=== PATIENT | female | born 1940 | race African-American/Black ===

== ENCOUNTER 2017-02-13 00:56 | Inpatient (IN) | payer MEDICARE, MEDICAID ==
[~2017-02-13] VITALS: Ht 152.4 cm; Wt 71.2 kg
[~2017-02-13 00:56] MED LIST: ADVAIR; ADVAIR 100-501 EACH INH; ADVAIR PO; ASPIR 8181 MG ORAL; ASPIRIN81 M2 PO; ATORVASTATIN CA10 MG ORAL; ATORVASTATIN CA20 MG ORAL; BENAZEPRIL; BENAZEPRIL HCL40 MG ORAL; CIPRO500 MG PO; CIPROFLOXACIN500 M2 ORAL; COLACE100 MG ORAL; DETROL LA4 MG PO; FLAGYL500 MG PO; LANTUS INSULIN; MACROBID100 MG ORAL; METOPROLOL TAR100 MG ORAL; METRONIDAZOLE500 MG ORAL; NITROSTAT; NORCO 5-325 TA1 EACH ORAL; NORVASC10 MG ORAL; NOVOLOG INSULIN; PLAVIX75 MG ORAL
[2017-02-13 04:00] VITALS: BP 110/50
[2017-02-13] MEDS ORDERED: UNOBMED (04:18)
[2017-02-13] MEDS ORDERED: Nitroglycerin Subl 0.4mg tab (Bottle Of 25) SL PRN (06:15)
[2017-02-13] MEDS: NovoLOG Insulin Flexpen SUBQ SCH ×4 (06:43→21:39)
[2017-02-13 08:00] VITALS: BP 115/63
[2017-02-13] MEDS ORDERED: Aspirin Baby 81mg ORAL SCH (09:00)
[2017-02-13 09:37] LABS: BASOPHILS % (AUTO) 1.5 % (0.0-2.0); EOSINOPHILS % (AUTO) 8.4 % (0.0-3.0); LYMPHOCYTES % (AUTO) 33.9 % (20.0-45.0); MEAN CORPUSCULAR HEMOGLOBIN 26.4 PG (27.0-31.0); MEAN CORPUSCULAR HGB CONC 31.9 G/DL (32.0-36.0); MEAN CORPUSCULAR VOLUME 83 FL (80-99); MEAN PLATELET VOLUME 6.9 FL (6.5-10.1); MONOCYTES % (AUTO) 6.5 % (1.0-10.0); NEUTROPHILS % (AUTO) 49.7 % (45.0-75.0); PLATELET COUNT 289 K/UL (150-450); RED BLOOD COUNT 4.49 M/UL (4.20-5.40); RED CELL DISTRIBUTION WIDTH 13.5 % (11.6-14.8); WHITE BLOOD COUNT 8.3 K/UL (4.8-10.8)
[2017-02-13 09:47] LABS: ALANINE AMINOTRANSFERASE 10 U/L (3-33); ALBUMIN/GLOBULIN RATIO 0.9 (1.0-2.7); ANION GAP 11 (5-15); ASPARTATE AMINO TRANSFERASE 13 U/L (5-40); CALCIUM 9.2 mg/dL (8.6-10.2); CARBON DIOXIDE 25 mEQ/L (20-30); CHLORIDE 104 mEQ/L (98-107); CHOLESTEROL 209 mg/dL (< 200); CHOLESTEROL/HDL RATIO 5.6 (3.3-4.4); HEMOLYSIS 2; LDL CHOLESTEROL (CALC.) 148 mg/dL (60-99); MAGNESIUM 1.7 mg/dL (1.7-2.5); POTASSIUM 4.1 mEQ/L (3.4-4.9); SODIUM 140 mEQ/L (135-145)
[2017-02-13 09:48] LABS: TROPONIN I < 0.30 ng/mL (<=0.30)
--- NOTE | 2017-02-13 10:55 | History & Physical ---
History and Physical History & Physicial Dictated for Int Med-Dr Guzman no. [id number]. RICHARD MONTERO Feb 13, 2017 10:55
[2017-02-13 12:00] VITALS: BP 151/74
--- NOTE | 2017-02-13 13:28 | Consultation ---
History of Present Illness General Date patient seen: Feb 13, 2017 Referring physician: Dr. Quiles Reason for Consultation: chest pain Present Illness HPI 77 year old female with hx of HTN, COPD, was taken by paramedics to [facility] with CC of chest pain. Acute WA was ruled out and she is transferred to [facility] for further work up. Currently she is asymptomatic and awaiting her test results. Allergies: Coded Allergies: AMOXICILLIN (Verified Allergy, Severe, HIVES, 01/01/13) PENICILLINS (Verified Allergy, Severe, HIVES, 01/01/13) STRAWBERRY (Verified Allergy, Intermediate, Hives, 02/13/17) Medication History Scheduled Amlodipine Besylate (Norvasc), 10 MG ORAL DAILY, (Reported) Aspirin* (Aspir 81*), 81 MG ORAL DAILY, (Reported) Atorvastatin Calcium* (Atorvastatin Calcium*), 20 MG ORAL BEDTIME, (Reported) Benazepril Hcl* (Benazepril Hcl*), 40 MG ORAL DAILY, (Reported) Ciprofloxacin Hcl* (Ciprofloxacin Hcl*), 500 MG ORAL Q12H Clopidogrel Bisulfate* (Plavix*), 75 MG ORAL DAILY, (Reported) Docusate Sodium* (Colace*), 100 MG ORAL TWICE A DAY Fluticasone/Salmeterol (Advair 100-50 Diskus), 1 PUFF INH BID, (Reported) Metoprolol Tartrate* (Metoprolol Tartrate*), 100 MG ORAL DAILY, (Reported) Metronidazole* (Flagyl*), 500 MG ORAL TID, (Reported) Nitrofurantoin Monohyd/M-Cryst (Nitrofurantoin Harding-Mcr 100 mg), 100 MG ORAL Q12H Scheduled PRN Hydrocodone Bit/Acetaminophen 5-325* (Inchelium 5-325*), 1 TAB ORAL Q6H PRN for For Pain, (Reported) Hydrocodone Bit/Acetaminophen 5-325* (Inchelium 5-325*), 1 TAB ORAL Q6H PRN for For Pain Miscellaneous Medications Unable to Obtain Medications (Unable To Obtain Meds), (Reported) Patient History Healthcare decision maker Resuscitation status Full Code Advanced Directive on File No Past Medical/Surgical History Past Medical/Surgical History: (1) DDD (degenerative disc disease), thoracic (2) Thoracic spondylosis (3) Hypertension (4) Diabetes Review of Systems All Other Systems: negative except mentioned in HPI Physical Exam General Appearance: WD/WN Lines, tubes and drains: peripheral HEENT: normocephalic, atraumatic Neck: non-tender, normal alignment Respiratory/Chest: chest wall non-tender, normal breath sounds Cardiovascular/Chest: normal peripheral pulses, normal rate Abdomen: normal bowel sounds, non tender Genitourinary/Rectal: normal genital exam Extremities: normal range of motion, non-tender Skin Exam: normal pigmentation Last 24 Hour Vital Signs Date Time Temp Pulse Resp B/P Pulse Ox O2 Delivery O2 Flow Rate FiO2 02/13/17 12:00 99.5 86 20 151/74 100 Nasal Cannula 2.0 02/13/17 08:23 Nasal Cannula 2.0 28 02/13/17 08:23 99 Nasal Cannula 2.0 28 02/13/17 08:00 90 02/13/17 08:00 97.5 86 20 115/63 97 Room Air 02/13/17 06:15 130/79 02/13/17 04:00 74 02/13/17 04:00 97.5 75 18 110/50 99 Room Air Laboratory Tests Test 02/13/17 09:00 White Blood Count 8.3 K/UL (4.8-10.8) Red Blood Count 4.49 M/UL (4.20-5.40) Hemoglobin 11.9 G/DL (12.0-16.0) L Hematocrit 37.2 % (37.0-47.0) Mean Corpuscular Volume 83 FL (80-99) Mean Corpuscular Hemoglobin 26.4 PG (27.0-31.0) L Mean Corpuscular Hemoglobin Concent 31.9 G/DL (32.0-36.0) L Red Cell Distribution Width 13.5 % (11.6-14.8) Platelet Count 289 K/UL (150-450) Mean Platelet Volume 6.9 FL (6.5-10.1) Neutrophils (%) (Auto) 49.7 % (45.0-75.0) Lymphocytes (%) (Auto) 33.9 % (20.0-45.0) Monocytes (%) (Auto) 6.5 % (1.0-10.0) Eosinophils (%) (Auto) 8.4 % (0.0-3.0) H Basophils (%) (Auto) 1.5 % (0.0-2.0) Sodium Level 140 mEQ/L (135-145) Potassium Level 4.1 mEQ/L (3.4-4.9) Chloride Level 104 mEQ/L (98-107) Carbon Dioxide Level 25 mEQ/L (20-30) Anion Gap 11 (5-15) Blood Urea Nitrogen 16 mg/dL (7-23) Creatinine 1.0 mg/dL (0.5-0.9) H Estimat Glomerular Filtration Rate mL/min (>60) Glucose Level 145 mg/dL (74-106) H Calcium Level 9.2 mg/dL (8.6-10.2) Phosphorus Level 3.0 mg/dL (2.5-4.8) Magnesium Level 1.7 mg/dL (1.7-2.5) Total Bilirubin < 0.2 mg/dL (0.0-1.2) Aspartate Amino Transf (AST/SGOT) 13 U/L (5-40) Alanine Aminotransferase (ALT/SGPT) 10 U/L (3-33) Alkaline Phosphatase 65 U/L (35-104) Troponin I < 0.30 ng/mL (<=0.30) Total Protein 7.0 g/dL (6.6-8.7) Albumin 3.4 g/dL (3.5-5.2) L Globulin 3.6 g/dL Albumin/Globulin Ratio 0.9 (1.0-2.7) L Triglycerides Level 121 mg/dL (< 150) Cholesterol Level 209 mg/dL (< 200) H LDL Cholesterol 148 mg/dL (60-99) H HDL Cholesterol 37 mg/dL (> 60) Cholesterol/HDL Ratio 5.6 (3.3-4.4) H Height (Feet): 5 Weight (Pounds): 157 Medications Current Medications Medications (Trade) Dose Ordered Sig/Tasia Route PRN Reason Start Time Stop Time Status Last Admin Dose Admin Acetaminophen (Tylenol) 650 mg Q6H PRN ORAL Mild Pain/Temp > 100.5 02/13/17 07:30 03/15/17 07:29 Aspirin (ASA) 81 mg DAILY ORAL 02/13/17 09:00 03/15/17 08:59 02/13/17 09:06 Atorvastatin Calcium (Lipitor) 40 mg BEDTIME ORAL 02/13/17 21:00 03/15/17 20:59 Dextrose (Dextrose 50%) STAT PRN IV Hypoglycemia 02/13/17 06:15 03/15/17 06:14 Heparin Sodium (Porcine) (Heparin 5000 units/ml) 5,000 units EVERY 8 HOURS SUBQ 02/13/17 14:00 03/15/17 13:59 Insulin Aspart (NovoLOG) BEFORE MEALS AND HS SUBQ 02/13/17 06:30 03/15/17 06:29 02/13/17 11:11 Nitroglycerin (Ntg) 0.4 mg Q5M PRN SL Prn Chest Pain 02/13/17 06:15 03/15/17 06:14 02/13/17 06:15 Nitroglycerin (Ntg) 1 patch EVERY 8 HOURS TDERMAL 02/13/17 14:00 03/15/17 13:59 Pantoprazole (Protonix) 40 mg ACBREAKFAST ORAL 02/13/17 09:00 03/15/17 08:59 02/13/17 09:06 Assessment/Plan Problem List: (1) ACS (acute coronary syndrome) ICD Codes: I20.0 - Unstable angina SNOMED: 363283198 (2) Diabetes ICD Codes: E11.9 - Diabetes SNOMED: 69972942 (3) Hypertension ICD Codes: I10 - Hypertension SNOMED: 78690194 (4) DDD (degenerative disc disease), thoracic ICD Codes: M51.34 - DDD (degenerative disc disease), thoracic SNOMED: 32510564 Assessment/Plan cxr, echo stress testing s monitor bp serial troponing dvt prophylaxis RONY CRUZ Feb 13, 2017 13:28
[2017-02-13] MEDS ORDERED: Norco 5mg/325mg tab ORAL PRN (13:30)
[2017-02-13] MEDS: Heparin 5000 units/ml inj SUBQ SCH ×2 (14:00→21:40)
[2017-02-13] MEDS: Nitroglycerin Patch 0.4mg TDERMAL SCH ×2 (14:02→21:36)
--- NOTE | 2017-02-13 14:59 | Diagnostic Imaging Report ---
Indication: Dyspnea Comparison: 12 x 16 A single view chest radiograph was obtained. Findings: No definite infiltrate or pulmonary vascular congestion identified. The heart is enlarged. The aorta is mildly enlarged consistent with atherosclerotic vascular disease. The bones are osteopenic. Impression: No acute disease
[2017-02-13 16:00] VITALS: BP 135/75
[2017-02-13 16:10] LABS: TROPONIN I < 0.30 ng/mL (<=0.30)
[2017-02-13 20:00] VITALS: BP 141/85
--- NOTE | 2017-02-13 20:00 | History and Physical Report ---
DATE OF ADMISSION: 02/13/2017 CHIEF COMPLAINT: The patient is a 77-year-old female, presents with chief complaint of chest pain. HISTORY OF PRESENT ILLNESS: Began yesterday, 02/12/2017. The patient began to experience chest pain. The patient states she was not doing anything in particular, just sitting around the house. The patient states the chest pain is substernal. Chest pain radiates to the left-sided chest. The chest pain also radiates to the back. Chest pain lasted approximately 15 to 20 minutes. The patient denies nausea, vomiting, or diaphoresis. The patient was transported via EMS to [facility] emergency room. An initial troponin level there was negative. The patient is transferred to [facility] secondary to insurance purposes. The patient is admitted for chest pain to rule out acute coronary syndrome. PAST MEDICAL HISTORY: Significant for 1. Hypertension. 2. History of possible myocardial infarction in the past. PAST SURGICAL HISTORY: The patient denies. CURRENT MEDICATIONS: 1. Amlodipine 10 mg one tablet p.o. daily. 2. Aspirin 81 mg one tablet p.o. daily. 3. Atorvastatin 20 mg one tablet p.o. at bedtime. 4. Benazepril 40 mg one tablet p.o. daily. 5. Plavix 75 mg one tablet p.o. daily. 6. Advair 100/50, one puff p.o. twice daily. 7. Metoprolol 100 mg one tablet p.o. daily. ALLERGIES: Penicillin. SOCIAL HISTORY: The patient is and lives with her son. The patient admits to tobacco use to one-half pack per day. The patient denies alcohol use. REVIEW OF SYSTEMS: Constitutional: The patient denies weight loss or weight gain. The patient denies fevers or chills. HEENT: The patient denies ear or throat pain. Cardiovascular: The patient complains of chest pain as above. The patient denies palpitations. Chest: The patient denies wheeze or shortness of breath. Abdomen: The patient denies nausea, vomiting, diarrhea, or constipation. Genitourinary: The patient denies dysuria or increased frequency of urination. Neuromuscular: The patient denies seizures or generalized weakness. PHYSICAL EXAMINATION: GENERAL: The patient is a well-developed and well-nourished slightly obese female, in no apparent distress. VITAL SIGNS: Temperature 97.5 degrees, respirations 18, pulse 75, and blood pressure 110/50. HEENT: Eyes, pupils are equal and responsive to light and accommodation. Extraocular movements are intact. NECK: Supple without lymphadenopathy. CHEST: Lungs are clear to auscultation bilaterally without wheezes or rales. CARDIOVASCULAR: Regular rhythm and rate. S1 and S2 normal without murmurs, rubs, or gallops. ABDOMEN: Soft, nontender, and nondistended. Positive bowel sounds. No evidence of hepatosplenomegaly. Currently, no rebound or guarding. EXTREMITIES: Negative for clubbing, cyanosis, or edema. RECTAL/GENITAL: Refused. NEUROLOGIC: Cranial nerves II through XII are grossly intact without focal deficits. Motor strength is 5/5 bilaterally. Deep tendon reflexes are 2+ plantar. LABORATORY AND DIAGNOSTIC DATA: WBC 9.3, hemoglobin 11.7, hematocrit 35.5, and platelets 266,000. Sodium 136, potassium 4.4, chloride 107, CO2 25, BUN 13, and creatinine 1.03. Troponin less than 0.02. BNP normal at 63. Glucose elevated at 261. Chest x-ray is within normal limits. EKG demonstrated normal sinus rhythm. There are no acute ST changes or Q-waves noted. Ventricular rate was 92 beats per minute. This is interpreted as normal EKG. ASSESSMENT: This is a 77-year-old female 1. Chest pain. 2. Hypertension. 3. Hypercholesterolemia. 4. Diabetes type 2. TREATMENT: 1. Chest pain. A Cardiology consultation is pending with Dr. Edward Benavidez. We will follow recommendation of Cardiology. A Cardiolite stress test is pending. 2. Hypertension. Continue amlodipine and benazepril as above. Continue metoprolol as above. 3. Hypercholesterolemia. Continue atorvastatin as above. 4. Diabetes type 2. The patient has been started on a NovoLog sliding scale with Accu-Cheks before meals and at bedtime. Junior Quiles M.D. DR: WILFREDO JOB#: [id number] CC:
--- NOTE | 2017-02-13 20:06 | Cardiology Progress Note ---
Assessment/Plan Assessment/Plan The patient is seen and examined, full consult note is dictated. Objective Last 24 Hour Vital Signs Date Time Temp Pulse Resp B/P Pulse Ox O2 Delivery O2 Flow Rate FiO2 02/13/17 16:00 97.7 79 20 135/75 100 Nasal Cannula 2.0 02/13/17 14:02 151/74 02/13/17 12:00 77 02/13/17 12:00 99.5 86 20 151/74 100 Nasal Cannula 2.0 02/13/17 08:23 Nasal Cannula 2.0 28 02/13/17 08:23 99 Nasal Cannula 2.0 28 02/13/17 08:00 90 02/13/17 08:00 97.5 86 20 115/63 97 Room Air 02/13/17 06:15 130/79 02/13/17 04:00 74 02/13/17 04:00 97.5 75 18 110/50 99 Room Air Intake and Output 02/12/17 02/13/17 19:00 07:00 # Bowel Movements 2 Laboratory Tests Test 02/13/17 09:00 02/13/17 15:30 White Blood Count 8.3 K/UL (4.8-10.8) Red Blood Count 4.49 M/UL (4.20-5.40) Hemoglobin 11.9 G/DL (12.0-16.0) L Hematocrit 37.2 % (37.0-47.0) Mean Corpuscular Volume 83 FL (80-99) Mean Corpuscular Hemoglobin 26.4 PG (27.0-31.0) L Mean Corpuscular Hemoglobin Concent 31.9 G/DL (32.0-36.0) L Red Cell Distribution Width 13.5 % (11.6-14.8) Platelet Count 289 K/UL (150-450) Mean Platelet Volume 6.9 FL (6.5-10.1) Neutrophils (%) (Auto) 49.7 % (45.0-75.0) Lymphocytes (%) (Auto) 33.9 % (20.0-45.0) Monocytes (%) (Auto) 6.5 % (1.0-10.0) Eosinophils (%) (Auto) 8.4 % (0.0-3.0) H Basophils (%) (Auto) 1.5 % (0.0-2.0) Sodium Level 140 mEQ/L (135-145) Potassium Level 4.1 mEQ/L (3.4-4.9) Chloride Level 104 mEQ/L (98-107) Carbon Dioxide Level 25 mEQ/L (20-30) Anion Gap 11 (5-15) Blood Urea Nitrogen 16 mg/dL (7-23) Creatinine 1.0 mg/dL (0.5-0.9) H Estimat Glomerular Filtration Rate mL/min (>60) Glucose Level 145 mg/dL (74-106) H Calcium Level 9.2 mg/dL (8.6-10.2) Phosphorus Level 3.0 mg/dL (2.5-4.8) Magnesium Level 1.7 mg/dL (1.7-2.5) Total Bilirubin < 0.2 mg/dL (0.0-1.2) Aspartate Amino Transf (AST/SGOT) 13 U/L (5-40) Alanine Aminotransferase (ALT/SGPT) 10 U/L (3-33) Alkaline Phosphatase 65 U/L (35-104) Troponin I < 0.30 ng/mL (<=0.30) < 0.30 ng/mL (<=0.30) Total Protein 7.0 g/dL (6.6-8.7) Albumin 3.4 g/dL (3.5-5.2) L Globulin 3.6 g/dL Albumin/Globulin Ratio 0.9 (1.0-2.7) L Triglycerides Level 121 mg/dL (< 150) Cholesterol Level 209 mg/dL (< 200) H LDL Cholesterol 148 mg/dL (60-99) H HDL Cholesterol 37 mg/dL (> 60) Cholesterol/HDL Ratio 5.6 (3.3-4.4) H MARTA HARVEY Feb 13, 2017 20:06
[2017-02-13] MEDS: Atorvastatin 80mg tab ORAL SCH (21:36)
[2017-02-14] VITALS: BP 124/73
--- NOTE | 2017-02-14 03:30 | Consultation ---
DATE OF CONSULTATION: 02/13/2017 CARDIOLOGY CONSULTATION CONSULTING PHYSICIAN: Edward Neri M.D. REFERRING PHYSICIAN: Junior Quiles M.D. REASON FOR CONSULTATION: Management of chest pain. History Of Present Illness: The patient is a very pleasant 77-year-old female, known to me, who is transferred from [facility] for consultation and management of chest pain. Apparently, the patient has complaints of chest pain during the night of 02/12/2017 at around 9:30, described as pressure-like pain in the mid chest area, intermittent, nonradiating, and not associated with shortness of breath. There was no associated nausea and vomiting. The chest pain lasted about an hour, intensity of 5/10. On arrival to [facility], initial blood pressure was 145/71 mmHg and heart rate of 74 beats per minute. The patient underwent initial evaluation and management of acute coronary syndrome. Troponin I were negative. ECG did not show any evidence of ST segment changes. The patient was transferred to this facility for further evaluation and management. PAST MEDICAL HISTORY: History of coronary artery disease, status post percutaneous coronary intervention at [facility], history of hypertension, history of diabetes mellitus, and history of myocardial infarction. PAST SURGICAL HISTORY: Angioplasty and stent placement. MEDICATIONS: List of medications were reviewed and reconciled. ALLERGIES: Allergic to penicillin. SOCIAL HISTORY: No history of tobacco, alcohol, or illicit drug use. FAMILY HISTORY: No premature coronary artery disease in first-degree relatives. REVIEW OF SYSTEMS: HEENT: Denies any headache, diplopia, or blurred vision. Constitutional: Denies any fever, chills, night sweats, or weight loss. Cardiovascular: Has chest pain, new onset and as mentioned above did not have any exertional chest pain, did not have any dyspnea on exertion, did not have any PND, orthopnea, leg swelling, syncope, or palpitations. Pulmonary: Denies any cough, hemoptysis, or wheezing. Gastrointestinal: Denies any nausea, vomiting, diarrhea, constipation, abdominal pain, or GI bleed. Genitourinary: Denies any hematuria, dysuria, or incontinence. Neurology: Denies any motor dysfunction, sensory deficit, or altered speech. PHYSICAL EXAMINATION: VITAL SIGNS: Blood pressure was 145/71, pulse of 74, respirations 20, temperature was 97.5 degrees Fahrenheit, and O2 saturation 97%. GENERAL: The patient is a very pleasant 77-year-old female, in no apparent respiratory distress. Alert and oriented x4. HEENT: Atraumatic and normocephalic. Anicteric. Pupils are equal, round, and reactive to light and accommodation. Extraocular muscles are intact. NECK: JVP less than 5 cm. No carotid bruit. Carotid upstroke is 2+ bilaterally. CARDIOVASCULAR: Normal S1 and S2. Regular rate and rhythm. No murmurs, gallops, or rubs. PMI is at fourth intercostal space at the midclavicular line. LUNGS: Clear to auscultation bilaterally. ABDOMEN: Soft, nontender, and nondistended. No hepatosplenomegaly. Positive bowel sounds. EXTREMITIES: No evidence of edema, clubbing, or cyanosis. LABORATORY FINDINGS: WBC was 9.1, hemoglobin 11.7, hematocrit 35.5, and platelet count was 266,000. Sodium is 136, potassium is 4.4, chloride 107, bicarbonate 25, BUN 13, creatinine 1.03, and glucose is 261. Troponin I was less than 0.02 and BNP was 63. The chest x-ray shows no acute cardiopulmonary disease. A 12-lead electrocardiogram shows sinus rhythm at a rate of [address] and T-wave changes. ASSESSMENT AND PLAN: The patient is an unfortunate 77-year-old female with history of coronary artery disease status post percutaneous coronary intervention at [facility], who presents to the hospital with unstable angina. Acute myocardial infarction is ruled out. A 12-lead electrocardiogram does not show any evidence of ischemia. Beta-natriuretic peptide is also negative. The patient is scheduled for nuclear stress test to rule out obstructive coronary artery disease evaluation of the patient's . Further therapeutic and diagnostic decision will be based on the results of the above test. In the meantime, a 2D echocardiography will also be done to assess the left ventricular systolic function and also hemodynamics. I will continue with aspirin and clopidogrel in this patient. Atorvastatin is going to be increased from 40 mg to 80 mg at bedtime in view of uncontrolled LDL. Of note, the target LDL for this patient is less than 70 mg/dL. I would like to thank Dr. Quiles for allowing me to participate in the care of this patient. Edward Neri M.D. DR: LAUREL JOB#: [id number] CC:
[2017-02-14 04:00] VITALS: BP 133/55
[2017-02-14] MEDS: Nitroglycerin Patch 0.4mg TDERMAL SCH ×3 (06:10→21:41)
[2017-02-14] MEDS: Heparin 5000 units/ml inj SUBQ SCH ×3 (06:13→21:42)
[2017-02-14] MEDS: NovoLOG Insulin Flexpen SUBQ SCH ×4 (06:30→21:43)
--- NOTE | 2017-02-14 07:25 | Cardiology Report ---
APPROVED REPORT EKG Measurement Heart [id number] Normal sinus rhythm Nonspecific T wave abnormality Abnormal ECG
--- NOTE | 2017-02-14 07:45 | Cardiology Report ---
APPROVED REPORT EXAM: Two-dimensional and M-mode echocardiogram with Doppler and color Doppler. INDICATION Chest Pain M-Mode DIMENSIONS IVSd0.8 (0.7-1.1cm)Left Atrium (MM)4.0 (1.6-4.0cm) LVDd3.3 (3.5-5.6cm)Aortic Root2.9 (2.0-3.7cm) PWd1.3 (0.7-1.1cm)Aortic Cusp Exc.1.7 (1.5-2.0cm) LVDs2.0 (2.5-4.0cm) PWs1.7 cm Normal left ventricular chamber size, systolic function and wall motion. Left ventricular ejection fraction estimated to be 65 %. Mild left ventricular hypertrophy by 2-D. Anterior Echo-free space, may be due to pericardial fat or effusion. All other cardiac chamber sizes are within normal limits. Focal aortic valve sclerosis with adequate cusp excursion. Thickened mitral valve leaflets with normal excursion. Mitral annulus and aortic root calcification. Pulmonic valve not well visualized. Normal tricuspid valve structure. IVC at normal size with physiologic collapse. A color flow and spectral Doppler study was performed and revealed: Trace mitral regurgitation. Mitral diastolic velocities suggest reduced left ventricular relaxation c/w mild LV diastolic dysfunction (Grade I ). Trace tricuspid regurgitation. Tricuspid systolic velocities suggests peak right ventricular systolic pressure of 15 mmHg.
[2017-02-14 07:50] VITALS: BP 161/78
[2017-02-14 08:09] LABS: BASOPHILS % (AUTO) 0.7 % (0.0-2.0); EOSINOPHILS % (AUTO) 8.7 % (0.0-3.0); LYMPHOCYTES % (AUTO) 36.3 % (20.0-45.0); MEAN CORPUSCULAR HEMOGLOBIN 26.5 PG (27.0-31.0); MEAN CORPUSCULAR HGB CONC 32.2 G/DL (32.0-36.0); MEAN CORPUSCULAR VOLUME 82 FL (80-99); MEAN PLATELET VOLUME 6.7 FL (6.5-10.1); MONOCYTES % (AUTO) 5.3 % (1.0-10.0); PLATELET COUNT 275 K/UL (150-450); RED BLOOD COUNT 4.31 M/UL (4.20-5.40); RED CELL DISTRIBUTION WIDTH 13.3 % (11.6-14.8); WHITE BLOOD COUNT 10.1 K/UL (4.8-10.8)
[2017-02-14] MEDS: Aspirin EC 81mg tab ORAL SCH (08:26)
[2017-02-14 08:27] LABS: ANION GAP 12 (5-15); CALCIUM 9.1 mg/dL (8.6-10.2); CARBON DIOXIDE 25 mEQ/L (20-30); CHLORIDE 102 mEQ/L (98-107); HEMOLYSIS 0; POTASSIUM 4.1 mEQ/L (3.4-4.9); SODIUM 139 mEQ/L (135-145)
[2017-02-14 09:41] LABS: TROPONIN I < 0.30 ng/mL (<=0.30)
[2017-02-14] MEDS ORDERED: Adenosine Inj IVP ONE (12:00)
[2017-02-14 12:09] VITALS: BP 154/87
--- NOTE | 2017-02-14 15:58 | Internal Med Progress Note ---
Subjective Date of Service: Feb 14, 2017 Physician Name Junior Montero Attending Physician Candelario Guzman MD Current Medications Medications (Trade) Dose Ordered Sig/Tasia Route PRN Reason Start Time Stop Time Status Last Admin Dose Admin Acetaminophen (Tylenol) 650 mg Q6H PRN ORAL Mild Pain/Temp > 100.5 02/13/17 07:30 03/15/17 07:29 Acetaminophen/ Hydrocodone Bitart (Jordan 5/325) 1 tab Q6H PRN ORAL For Pain 02/13/17 13:30 02/20/17 13:29 02/14/17 03:24 Amlodipine Besylate (Norvasc) 10 mg DAILY ORAL 02/14/17 09:00 03/16/17 08:59 02/14/17 08:25 Aspirin (Ecotrin) 81 mg DAILY ORAL 02/14/17 09:00 03/16/17 08:59 02/14/17 08:26 Atorvastatin Calcium (Lipitor) 80 mg BEDTIME ORAL 02/13/17 21:00 03/15/17 20:59 02/13/17 21:36 Benazepril HCl (Lotensin) 40 mg DAILY ORAL 02/14/17 09:00 03/16/17 08:59 02/14/17 08:26 Clopidogrel Bisulfate (Plavix) 75 mg DAILY ORAL 02/14/17 09:00 03/16/17 08:59 02/14/17 08:25 Dextrose (Dextrose 50%) STAT PRN IV Hypoglycemia 02/13/17 06:15 03/15/17 06:14 Heparin Sodium (Porcine) (Heparin 5000 units/ml) 5,000 units EVERY 8 HOURS SUBQ 02/13/17 14:00 03/15/17 13:59 02/14/17 06:13 Insulin Aspart (NovoLOG) BEFORE MEALS AND HS SUBQ 02/13/17 06:30 03/15/17 06:29 02/13/17 21:39 Metoprolol Tartrate (Lopressor) 100 mg DAILY ORAL 02/14/17 09:00 03/16/17 08:59 Nitroglycerin (Ntg) 0.4 mg Q5M PRN SL Prn Chest Pain 02/13/17 06:15 03/15/17 06:14 02/13/17 06:15 Nitroglycerin (Ntg) 1 patch EVERY 8 HOURS TDERMAL 02/13/17 14:00 03/15/17 13:59 02/14/17 13:51 Pantoprazole (Protonix) 40 mg ACBREAKFAST ORAL 02/13/17 09:00 03/15/17 08:59 02/14/17 06:09 Allergies: Coded Allergies: AMOXICILLIN (Verified Allergy, Severe, HIVES, 01/01/13) PENICILLINS (Verified Allergy, Severe, HIVES, 01/01/13) STRAWBERRY (Verified Allergy, Intermediate, Hives, 02/13/17) ROS Limited/Unobtainable: No Constitutional: Reports: no symptoms HEENT: Reports: no symptoms Cardiovascular: Reports: chest pain Respiratory: Reports: no symptoms Gastrointestinal/Abdominal: Reports: no symptoms Genitourinary: Reports: no symptoms Neurologic/Psychiatric: Reports: no symptoms Subjective 77 YO F admitted with chest pain. Await cardiac stress test. Cover for Int Med -Dr Guzman. Objective Last Vital Signs Date Time Temp Pulse Resp B/P Pulse Ox O2 Delivery O2 Flow Rate FiO2 02/14/17 13:51 154/87 02/14/17 12:09 97.0 70 20 99 Nasal Cannula 2.0 02/14/17 07:46 28 Laboratory Tests Test 02/14/17 07:10 White Blood Count 10.1 K/UL (4.8-10.8) Red Blood Count 4.31 M/UL (4.20-5.40) Hemoglobin 11.4 G/DL (12.0-16.0) L Hematocrit 35.5 % (37.0-47.0) L Mean Corpuscular Volume 82 FL (80-99) Mean Corpuscular Hemoglobin 26.5 PG (27.0-31.0) L Mean Corpuscular Hemoglobin Concent 32.2 G/DL (32.0-36.0) Red Cell Distribution Width 13.3 % (11.6-14.8) Platelet Count 275 K/UL (150-450) Mean Platelet Volume 6.7 FL (6.5-10.1) Neutrophils (%) (Auto) 49.0 % (45.0-75.0) Lymphocytes (%) (Auto) 36.3 % (20.0-45.0) Monocytes (%) (Auto) 5.3 % (1.0-10.0) Eosinophils (%) (Auto) 8.7 % (0.0-3.0) H Basophils (%) (Auto) 0.7 % (0.0-2.0) Sodium Level 139 mEQ/L (135-145) Potassium Level 4.1 mEQ/L (3.4-4.9) Chloride Level 102 mEQ/L (98-107) Carbon Dioxide Level 25 mEQ/L (20-30) Anion Gap 12 (5-15) Blood Urea Nitrogen 17 mg/dL (7-23) Creatinine 1.0 mg/dL (0.5-0.9) H Estimat Glomerular Filtration Rate mL/min (>60) Glucose Level 112 mg/dL (74-106) H Calcium Level 9.1 mg/dL (8.6-10.2) Troponin I < 0.30 ng/mL (<=0.30) Pro-B-Type Natriuretic Peptide 110 pg/mL (0-450) Intake and Output 02/13/17 02/14/17 19:00 07:00 Intake Total 360 ml Balance 360 ml Intake Oral 360 ml # Voids 1 1 # Bowel Movements 1 Objective General: alert, cooperative, no distress, appears stated age Head: normocephalic, without obvious abnormality, atraumatic Eyes: conjunctivae/corneas clear. PERRL, EOM's intact Throat: lips, mucosa, and tongue normal. MMM Neck: supple, symmetrical, trachea midline, and no JVD Lungs: clear to auscultation bilaterally Heart: regular rate and rhythm, S1, S2 normal, no murmur, click, rub or gallop Abdomen: soft, non-tender, non-distended, bowel sounds normal; no masses or organomegaly Extremities: extremities normal, atraumatic, no cyanosis or edema Pulses: 2+ and symmetric Skin: skin color, texture, turgor normal; no rashes or lesions Neurologic: grossly normal, no focal deficits Assessment/Plan Problem List: (1) HTN (hypertension) Assessment & Plan: Cont amlodipine, benazepril and metoprolol (2) Hypercholesteremia (3) Chest pain Assessment & Plan: See cardiology note. Await cardiac stress test. (4) Diabetes Assessment & Plan: Cont novolog sliding scale. (5) Hypercholesterolemia Assessment & Plan: Cont Lipitor Status: progressing JUNIOR MONTERO Feb 14, 2017 15:57
[2017-02-14 16:00] VITALS: BP 129/61
--- NOTE | 2017-02-14 18:28 | Pulmonology Progress Note ---
Assessment/Plan Problems: (1) ACS (acute coronary syndrome) (2) Diabetes (3) Hypertension (4) DDD (degenerative disc disease), thoracic Assessment/Plan f/u stress test results echo acute UT ruled out f/u cardio recommendations Subjective ROS Limited/Unobtainable: No Allergies: Coded Allergies: AMOXICILLIN (Verified Allergy, Severe, HIVES, 01/01/13) PENICILLINS (Verified Allergy, Severe, HIVES, 01/01/13) STRAWBERRY (Verified Allergy, Intermediate, Hives, 02/13/17) Objective Last 24 Hour Vital Signs Date Time Temp Pulse Resp B/P Pulse Ox O2 Delivery O2 Flow Rate FiO2 02/14/17 16:00 98.1 78 18 129/61 96 Nasal Cannula 2.0 02/14/17 13:51 154/87 02/14/17 12:09 97.0 70 20 154/87 99 Nasal Cannula 2.0 02/14/17 12:00 78 02/14/17 09:00 76 161/78 02/14/17 08:26 161/78 02/14/17 08:25 76 161/78 02/14/17 08:00 76 02/14/17 07:50 97.3 76 18 161/78 100 Room Air 02/14/17 07:46 Nasal Cannula 2.0 28 02/14/17 07:45 97 Nasal Cannula 2.0 28 02/14/17 06:10 117/67 02/14/17 04:00 98.1 88 20 133/55 97 Nasal Cannula 2.0 28 02/14/17 04:00 90 02/14/17 00:00 83 02/14/17 00:00 97.7 86 20 124/73 97 Nasal Cannula 2.0 28 02/13/17 21:36 141/85 02/13/17 20:00 79 02/13/17 20:00 98.1 78 20 141/85 98 Room Air 02/13/17 19:30 97 Nasal Cannula 2.0 28 02/13/17 19:30 Nasal Cannula 2.0 28 Intake and Output 02/13/17 02/14/17 19:00 07:00 Intake Total 360 ml Balance 360 ml Intake Oral 360 ml # Voids 1 1 # Bowel Movements 1 Objective General Appearance: WD/WN HEENT: normocephalic, atraumatic Respiratory/Chest: chest wall non-tender, lungs clear Cardiovascular: normal peripheral pulses, normal rate Abdomen: normal bowel sounds, soft, non tender Genitourinary: normal external genitalia Extremities: no cyanosis Skin: no rash Neurologic/Psychiatric: community support associate II-XII grossly normal Lymphatic: no neck adenopathy Musculoskeletal: normal muscle bulk General Appearance: WD/WN Laboratory Tests 02/14/17 07:10: White Blood Count 10.1, Red Blood Count 4.31, Hemoglobin 11.4L, Hematocrit 35.5L , Mean Corpuscular Volume 82, Mean Corpuscular Hemoglobin 26.5L, Mean Corpuscular Hemoglobin Concent 32.2, Red Cell Distribution Width 13.3, Platelet Count 275, Mean Platelet Volume 6.7, Neutrophils (%) (Auto) 49.0, Lymphocytes (% ) (Auto) 36.3, Monocytes (%) (Auto) 5.3, Eosinophils (%) (Auto) 8.7H, Basophils (%) (Auto) 0.7, Sodium Level 139, Potassium Level 4.1, Chloride Level 102, Carbon Dioxide Level 25, Anion Gap 12, Blood Urea Nitrogen 17, Creatinine 1.0H, Estimat Glomerular Filtration Rate , Glucose Level 112H, Calcium Level 9.1, Troponin I < 0.30, Pro-B-Type Natriuretic Peptide 110 Current Medications Medications (Trade) Dose Ordered Sig/Tasia Route PRN Reason Start Time Stop Time Status Last Admin Dose Admin Acetaminophen (Tylenol) 650 mg Q6H PRN ORAL Mild Pain/Temp > 100.5 02/13/17 07:30 03/15/17 07:29 Acetaminophen/ Hydrocodone Bitart ([place] 5/325) 1 tab Q6H PRN ORAL For Pain 02/13/17 13:30 02/20/17 13:29 02/14/17 03:24 Amlodipine Besylate (Norvasc) 10 mg DAILY ORAL 02/14/17 09:00 03/16/17 08:59 02/14/17 08:25 Aspirin (Ecotrin) 81 mg DAILY ORAL 02/14/17 09:00 03/16/17 08:59 02/14/17 08:26 Atorvastatin Calcium (Lipitor) 80 mg BEDTIME ORAL 02/13/17 21:00 03/15/17 20:59 02/13/17 21:36 Benazepril HCl (Lotensin) 40 mg DAILY ORAL 02/14/17 09:00 03/16/17 08:59 02/14/17 08:26 Clopidogrel Bisulfate (Plavix) 75 mg DAILY ORAL 02/14/17 09:00 03/16/17 08:59 02/14/17 08:25 Dextrose (Dextrose 50%) STAT PRN IV Hypoglycemia 02/13/17 06:15 03/15/17 06:14 Heparin Sodium (Porcine) (Heparin 5000 units/ml) 5,000 units EVERY 8 HOURS SUBQ 02/13/17 14:00 03/15/17 13:59 02/14/17 06:13 Insulin Aspart (NovoLOG) BEFORE MEALS AND HS SUBQ 02/13/17 06:30 03/15/17 06:29 02/14/17 16:30 Metoprolol Tartrate (Lopressor) 100 mg DAILY ORAL 02/14/17 09:00 03/16/17 08:59 Nitroglycerin (Ntg) 0.4 mg Q5M PRN SL Prn Chest Pain 02/13/17 06:15 03/15/17 06:14 02/13/17 06:15 Nitroglycerin (Ntg) 1 patch EVERY 8 HOURS TDERMAL 02/13/17 14:00 03/15/17 13:59 02/14/17 13:51 Pantoprazole (Protonix) 40 mg ACBREAKFAST ORAL 02/13/17 09:00 03/15/17 08:59 02/14/17 06:09 RONY CRUZ Feb 14, 2017 18:28
[2017-02-14 20:00] VITALS: BP 119/66
[2017-02-14] MEDS: Atorvastatin 80mg tab ORAL SCH (21:40)
--- NOTE | 2017-02-14 23:18 | Cardiology Progress Note ---
Assessment/Plan Assessment/Plan The patient is seen and examined, full consult note is dictated. Subjective Subjective Sinus rhythm at 78. Objective Last 24 Hour Vital Signs Date Time Temp Pulse Resp B/P Pulse Ox O2 Delivery O2 Flow Rate FiO2 02/14/17 21:41 119/66 02/14/17 20:00 Room Air 02/14/17 20:00 95 Room Air 02/14/17 20:00 76 02/14/17 20:00 97.7 81 20 119/66 97 Room Air 02/14/17 16:00 98.1 78 18 129/61 96 Nasal Cannula 2.0 02/14/17 13:51 154/87 02/14/17 12:09 97.0 70 20 154/87 99 Nasal Cannula 2.0 02/14/17 12:00 78 02/14/17 09:00 76 161/78 02/14/17 08:26 161/78 02/14/17 08:25 76 161/78 02/14/17 08:00 76 02/14/17 07:50 97.3 76 18 161/78 100 Room Air 02/14/17 07:46 Nasal Cannula 2.0 28 02/14/17 07:45 97 Nasal Cannula 2.0 28 02/14/17 06:10 117/67 02/14/17 04:00 98.1 88 20 133/55 97 Nasal Cannula 2.0 28 02/14/17 04:00 90 02/14/17 00:00 83 02/14/17 00:00 97.7 86 20 124/73 97 Nasal Cannula 2.0 28 Intake and Output 02/13/17 02/14/17 19:00 07:00 Intake Total 360 ml Balance 360 ml Intake Oral 360 ml # Voids 1 1 # Bowel Movements 1 Laboratory Tests Test 02/14/17 07:10 White Blood Count 10.1 K/UL (4.8-10.8) Red Blood Count 4.31 M/UL (4.20-5.40) Hemoglobin 11.4 G/DL (12.0-16.0) L Hematocrit 35.5 % (37.0-47.0) L Mean Corpuscular Volume 82 FL (80-99) Mean Corpuscular Hemoglobin 26.5 PG (27.0-31.0) L Mean Corpuscular Hemoglobin Concent 32.2 G/DL (32.0-36.0) Red Cell Distribution Width 13.3 % (11.6-14.8) Platelet Count 275 K/UL (150-450) Mean Platelet Volume 6.7 FL (6.5-10.1) Neutrophils (%) (Auto) 49.0 % (45.0-75.0) Lymphocytes (%) (Auto) 36.3 % (20.0-45.0) Monocytes (%) (Auto) 5.3 % (1.0-10.0) Eosinophils (%) (Auto) 8.7 % (0.0-3.0) H Basophils (%) (Auto) 0.7 % (0.0-2.0) Sodium Level 139 mEQ/L (135-145) Potassium Level 4.1 mEQ/L (3.4-4.9) Chloride Level 102 mEQ/L (98-107) Carbon Dioxide Level 25 mEQ/L (20-30) Anion Gap 12 (5-15) Blood Urea Nitrogen 17 mg/dL (7-23) Creatinine 1.0 mg/dL (0.5-0.9) H Estimat Glomerular Filtration Rate mL/min (>60) Glucose Level 112 mg/dL (74-106) H Calcium Level 9.1 mg/dL (8.6-10.2) Troponin I < 0.30 ng/mL (<=0.30) Pro-B-Type Natriuretic Peptide 110 pg/mL (0-450) Objective 20, temperature was 97.5 degrees Fahrenheit, and O2 saturation 97%. GENERAL: The patient is a very pleasant 77-year-old female, in no apparent respiratory distress. Alert and oriented x4. HEENT: Atraumatic and normocephalic. Anicteric. Pupils are equal, round, and reactive to light and accommodation. Extraocular muscles are intact. NECK: JVP less than 5 cm. No carotid bruit. Carotid upstroke is 2+ bilaterally. MARTA HARVEY Feb 14, 2017 23:18
[2017-02-15] VITALS: BP 150/89
[2017-02-15 04:00] VITALS: BP 120/73
[2017-02-15] MEDS: Nitroglycerin Patch 0.4mg TDERMAL SCH ×3 (05:58→21:25)
[2017-02-15] MEDS: Heparin 5000 units/ml inj SUBQ SCH ×3 (05:59→21:27)
[2017-02-15] MEDS: NovoLOG Insulin Flexpen SUBQ SCH ×4 (06:00→21:30)
[2017-02-15 08:00] VITALS: BP 167/79
[2017-02-15 08:04] LABS: BASOPHILS % (AUTO) 1.2 % (0.0-2.0); EOSINOPHILS % (AUTO) 8.3 % (0.0-3.0); LYMPHOCYTES % (AUTO) 34.8 % (20.0-45.0); MEAN CORPUSCULAR HEMOGLOBIN 26.3 PG (27.0-31.0); MEAN CORPUSCULAR VOLUME 82 FL (80-99); MONOCYTES % (AUTO) 4.8 % (1.0-10.0); NEUTROPHILS % (AUTO) 50.9 % (45.0-75.0); PLATELET COUNT 305 K/UL (150-450); RED BLOOD COUNT 4.85 M/UL (4.20-5.40); RED CELL DISTRIBUTION WIDTH 13.3 % (11.6-14.8); WHITE BLOOD COUNT 11.3 K/UL (4.8-10.8)
[2017-02-15 08:17] LABS: ANION GAP 9 (5-15); CALCIUM 9.7 mg/dL (8.6-10.2); CARBON DIOXIDE 27 mEQ/L (20-30); CHLORIDE 99 mEQ/L (98-107); HEMOLYSIS 1; POTASSIUM 3.9 mEQ/L (3.4-4.9); SODIUM 135 mEQ/L (135-145)
[2017-02-15] MEDS: Aspirin EC 81mg tab ORAL SCH (08:56)
--- NOTE | 2017-02-15 11:43 | Internal Med Progress Note ---
Subjective Date of Service: Feb 15, 2017 Physician Name Richard Montero Attending Physician Candelario Guzman MD Current Medications Medications (Trade) Dose Ordered Sig/Tasia Route PRN Reason Start Time Stop Time Status Last Admin Dose Admin Acetaminophen (Tylenol) 650 mg Q6H PRN ORAL Mild Pain/Temp > 100.5 02/13/17 07:30 03/15/17 07:29 Acetaminophen/ Hydrocodone Bitart ([place] 5/325) 1 tab Q6H PRN ORAL For Pain 02/13/17 13:30 02/20/17 13:29 02/14/17 03:24 Amlodipine Besylate (Norvasc) 10 mg DAILY ORAL 02/14/17 09:00 03/16/17 08:59 02/15/17 08:56 Aspirin (Ecotrin) 81 mg DAILY ORAL 02/14/17 09:00 03/16/17 08:59 02/15/17 08:56 Atorvastatin Calcium (Lipitor) 80 mg BEDTIME ORAL 02/13/17 21:00 03/15/17 20:59 02/14/17 21:40 Benazepril HCl (Lotensin) 40 mg DAILY ORAL 02/14/17 09:00 03/16/17 08:59 02/15/17 08:57 Clopidogrel Bisulfate (Plavix) 75 mg DAILY ORAL 02/14/17 09:00 03/16/17 08:59 02/15/17 08:56 Dextrose (Dextrose 50%) STAT PRN IV Hypoglycemia 02/13/17 06:15 03/15/17 06:14 Heparin Sodium (Porcine) (Heparin 5000 units/ml) 5,000 units EVERY 8 HOURS SUBQ 02/13/17 14:00 03/15/17 13:59 02/15/17 05:59 Insulin Aspart (NovoLOG) BEFORE MEALS AND HS SUBQ 02/13/17 06:30 03/15/17 06:29 02/15/17 11:23 Metoprolol Tartrate (Lopressor) 100 mg DAILY ORAL 02/14/17 09:00 03/16/17 08:59 02/15/17 08:57 Nitroglycerin (Ntg) 0.4 mg Q5M PRN SL Prn Chest Pain 02/13/17 06:15 03/15/17 06:14 02/13/17 06:15 Nitroglycerin (Ntg) 1 patch EVERY 8 HOURS TDERMAL 02/13/17 14:00 03/15/17 13:59 02/15/17 05:58 Pantoprazole (Protonix) 40 mg ACBREAKFAST ORAL 02/13/17 09:00 03/15/17 08:59 02/15/17 05:57 Allergies: Coded Allergies: AMOXICILLIN (Verified Allergy, Severe, HIVES, 01/01/13) PENICILLINS (Verified Allergy, Severe, HIVES, 01/01/13) STRAWBERRY (Verified Allergy, Intermediate, Hives, 02/13/17) ROS Limited/Unobtainable: No Constitutional: Reports: no symptoms HEENT: Reports: no symptoms Cardiovascular: Reports: chest pain Respiratory: Reports: no symptoms Gastrointestinal/Abdominal: Reports: no symptoms Genitourinary: Reports: no symptoms Neurologic/Psychiatric: Reports: no symptoms Subjective 77 YO F admitted with chest pain. Await cardiac stress test results. Cover for Int Martin-Dr Guzman. Objective Last Vital Signs Date Time Temp Pulse Resp B/P Pulse Ox O2 Delivery O2 Flow Rate FiO2 02/15/17 08:57 88 167/79 02/15/17 08:00 97.5 20 100 Nasal Cannula 2.0 02/14/17 07:46 28 Laboratory Tests Test 02/15/17 07:40 White Blood Count 11.3 K/UL (4.8-10.8) H Red Blood Count 4.85 M/UL (4.20-5.40) Hemoglobin 12.7 G/DL (12.0-16.0) Hematocrit 39.8 % (37.0-47.0) Mean Corpuscular Volume 82 FL (80-99) Mean Corpuscular Hemoglobin 26.3 PG (27.0-31.0) L Mean Corpuscular Hemoglobin Concent 32.0 G/DL (32.0-36.0) Red Cell Distribution Width 13.3 % (11.6-14.8) Platelet Count 305 K/UL (150-450) Mean Platelet Volume 7.0 FL (6.5-10.1) Neutrophils (%) (Auto) 50.9 % (45.0-75.0) Lymphocytes (%) (Auto) 34.8 % (20.0-45.0) Monocytes (%) (Auto) 4.8 % (1.0-10.0) Eosinophils (%) (Auto) 8.3 % (0.0-3.0) H Basophils (%) (Auto) 1.2 % (0.0-2.0) Sodium Level 135 mEQ/L (135-145) Potassium Level 3.9 mEQ/L (3.4-4.9) Chloride Level 99 mEQ/L (98-107) Carbon Dioxide Level 27 mEQ/L (20-30) Anion Gap 9 (5-15) Blood Urea Nitrogen 17 mg/dL (7-23) Creatinine 1.0 mg/dL (0.5-0.9) H Estimat Glomerular Filtration Rate mL/min (>60) Glucose Level 131 mg/dL (74-106) H Calcium Level 9.7 mg/dL (8.6-10.2) Microbiology Date/Time Source Procedure Growth Status 02/13/17 02:00 Nasal Nares Right MRSA Culture - Final NO METHICILLIN RESISTANT STAPH AUREUS... Complete 02/13/17 02:00 Rectal Mucosa VRE Culture - Final NO VANCOMYCIN RESISTANT ENTEROCOCCUS ... Complete Intake and Output 02/14/17 02/15/17 19:00 07:00 # Voids 1 1 # Bowel Movements 1 Objective General: alert, cooperative, no distress, appears stated age Head: normocephalic, without obvious abnormality, atraumatic Eyes: conjunctivae/corneas clear. PERRL, EOM's intact Throat: lips, mucosa, and tongue normal. MMM Neck: supple, symmetrical, trachea midline, and no JVD Lungs: clear to auscultation bilaterally Heart: regular rate and rhythm, S1, S2 normal, no murmur, click, rub or gallop Abdomen: soft, non-tender, non-distended, bowel sounds normal; no masses or organomegaly Extremities: extremities normal, atraumatic, no cyanosis or edema Pulses: 2+ and symmetric Skin: skin color, texture, turgor normal; no rashes or lesions Neurologic: grossly normal, no focal deficits Assessment/Plan Problem List: (1) HTN (hypertension) Assessment & Plan: Cont amlodipine, benazepril and metoprolol (2) Hypercholesteremia (3) Chest pain Assessment & Plan: See cardiology note. Await cardiac stress test result-R/O acute coronary synd (4) Diabetes Assessment & Plan: Cont novolog sliding scale. (5) Hypercholesterolemia Assessment & Plan: Cont Lipitor Status: not improved RICHARD MONTERO Feb 15, 2017 11:42
[2017-02-15 12:04] VITALS: BP 146/83
--- NOTE | 2017-02-15 14:40 | Pulmonology Progress Note ---
Assessment/Plan Problems: (1) ACS (acute coronary syndrome) (2) Diabetes (3) Hypertension (4) DDD (degenerative disc disease), thoracic Assessment/Plan f/u stress test results, imaging are pending echo reviewed f/u cardio recommendations Subjective ROS Limited/Unobtainable: No Constitutional: Reports: no symptoms HEENT: Repors: no symptoms Respiratory: Reports: no symptoms Allergies: Coded Allergies: AMOXICILLIN (Verified Allergy, Severe, HIVES, 01/01/13) PENICILLINS (Verified Allergy, Severe, HIVES, 01/01/13) STRAWBERRY (Verified Allergy, Intermediate, Hives, 02/13/17) Objective Last 24 Hour Vital Signs Date Time Temp Pulse Resp B/P Pulse Ox O2 Delivery O2 Flow Rate FiO2 02/15/17 14:07 146/83 02/15/17 12:15 74 02/15/17 12:04 97.0 79 20 146/83 100 Room Air 02/15/17 08:57 88 167/79 02/15/17 08:57 167/79 02/15/17 08:56 88 167/79 02/15/17 08:00 97.5 88 20 167/79 100 Nasal Cannula 2.0 02/15/17 07:36 84 02/15/17 05:58 120/73 02/15/17 04:00 83 02/15/17 04:00 97.9 79 20 120/73 100 Room Air 02/15/17 00:00 77 02/15/17 00:00 98.0 84 20 150/89 97 Room Air 02/14/17 21:41 119/66 02/14/17 20:00 Room Air 02/14/17 20:00 95 Room Air 02/14/17 20:00 76 02/14/17 20:00 97.7 81 20 119/66 97 Room Air 02/14/17 16:00 98.1 78 18 129/61 96 Nasal Cannula 2.0 Intake and Output 02/14/17 02/15/17 19:00 07:00 # Voids 1 1 # Bowel Movements 1 Objective General Appearance: WD/WN HEENT: normocephalic, atraumatic Respiratory/Chest: chest wall non-tender, lungs clear Cardiovascular: normal peripheral pulses, normal rate Abdomen: normal bowel sounds, soft, non tender Genitourinary: normal external genitalia Extremities: no cyanosis Skin: no rash Neurologic/Psychiatric: patient access associate II-XII grossly normal Lymphatic: no neck adenopathy Musculoskeletal: normal muscle bulk Microbiology Date/Time Source Procedure Growth Status 02/13/17 02:00 Nasal Nares Right MRSA Culture - Final NO METHICILLIN RESISTANT STAPH AUREUS... Complete 02/13/17 02:00 Rectal Mucosa VRE Culture - Final NO VANCOMYCIN RESISTANT ENTEROCOCCUS ... Complete Laboratory Tests 02/15/17 07:40: White Blood Count 11.3H, Red Blood Count 4.85, Hemoglobin 12.7, Hematocrit 39.8 , Mean Corpuscular Volume 82, Mean Corpuscular Hemoglobin 26.3L, Mean Corpuscular Hemoglobin Concent 32.0, Red Cell Distribution Width 13.3, Platelet Count 305, Mean Platelet Volume 7.0, Neutrophils (%) (Auto) 50.9, Lymphocytes (% ) (Auto) 34.8, Monocytes (%) (Auto) 4.8, Eosinophils (%) (Auto) 8.3H, Basophils (%) (Auto) 1.2, Sodium Level 135, Potassium Level 3.9, Chloride Level 99, Carbon Dioxide Level 27, Anion Gap 9, Blood Urea Nitrogen 17, Creatinine 1.0H, Estimat Glomerular Filtration Rate , Glucose Level 131H, Calcium Level 9.7 Current Medications Medications (Trade) Dose Ordered Sig/Tasia Route PRN Reason Start Time Stop Time Status Last Admin Dose Admin Acetaminophen (Tylenol) 650 mg Q6H PRN ORAL Mild Pain/Temp > 100.5 02/13/17 07:30 03/15/17 07:29 Acetaminophen/ Hydrocodone Bitart ([place] 5/325) 1 tab Q6H PRN ORAL For Pain 02/13/17 13:30 02/20/17 13:29 02/14/17 03:24 Amlodipine Besylate (Norvasc) 10 mg DAILY ORAL 02/14/17 09:00 03/16/17 08:59 02/15/17 08:56 Aspirin (Ecotrin) 81 mg DAILY ORAL 02/14/17 09:00 03/16/17 08:59 02/15/17 08:56 Atorvastatin Calcium (Lipitor) 80 mg BEDTIME ORAL 02/13/17 21:00 03/15/17 20:59 02/14/17 21:40 Benazepril HCl (Lotensin) 40 mg DAILY ORAL 02/14/17 09:00 03/16/17 08:59 02/15/17 08:57 Clopidogrel Bisulfate (Plavix) 75 mg DAILY ORAL 02/14/17 09:00 03/16/17 08:59 02/15/17 08:56 Dextrose (Dextrose 50%) STAT PRN IV Hypoglycemia 02/13/17 06:15 03/15/17 06:14 Heparin Sodium (Porcine) (Heparin 5000 units/ml) 5,000 units EVERY 8 HOURS SUBQ 02/13/17 14:00 03/15/17 13:59 02/15/17 14:06 Insulin Aspart (NovoLOG) BEFORE MEALS AND HS SUBQ 02/13/17 06:30 03/15/17 06:29 02/15/17 11:23 Metoprolol Tartrate (Lopressor) 100 mg DAILY ORAL 02/14/17 09:00 03/16/17 08:59 02/15/17 08:57 Nitroglycerin (Ntg) 0.4 mg Q5M PRN SL Prn Chest Pain 02/13/17 06:15 03/15/17 06:14 02/13/17 06:15 Nitroglycerin (Ntg) 1 patch EVERY 8 HOURS TDERMAL 02/13/17 14:00 03/15/17 13:59 02/15/17 14:07 Pantoprazole (Protonix) 40 mg ACBREAKFAST ORAL 02/13/17 09:00 03/15/17 08:59 02/15/17 05:57 RONY CRUZ Feb 15, 2017 14:40
--- NOTE | 2017-02-15 14:59 | Diagnostic Imaging Report ---
Indication: chest pain Technique: The study was conducted under the supervision of a planning lead. Adenosine infusion followed by intravenous administration of 35.2 mCi of technetium 99m Myoview was performed. Three plane SPECT imaging of the heart was then performed. A resting study was performed as part of the one-day protocol with 10.2 mCi of technetium 99m myoview injected intravenously at that time. Three plane SPECT imaging of the heart was obtained. Comparison: None Clinical data: 1. Clinical response: Nondiagnostic 2. Electrocardiographic response: Ischemic. 1-1.[address] depression in the lateral leads. Findings: The myocardial perfusion scan demonstrates diminished perfusion intensity within the anterior wall and lateral wall on the adenosine SPECT images relative to the resting images. While the finding may be artifactual, the possibility of ischemia is not excluded. Please correlate clinically. LVEF is 72%. Impression: Perfusion intensity is diminished on adenosine SPECT images within the anterior and lateral segments. The possibility of ischemia in these segments is not excluded. Please correlate clinically.
[2017-02-15 15:44] VITALS: BP 156/89
[2017-02-15 20:00] VITALS: BP 135/87
[2017-02-15] MEDS: Atorvastatin 80mg tab ORAL SCH (21:25)
--- NOTE | 2017-02-15 22:48 | Cardiology Progress Note ---
Assessment/Plan Assessment/Plan 1. Chest pain, lateral wall ischemia on [facility] nuclear stress test consistent with ischemia, transfer to [facility] for cardiac cath. Continue ASA, plavix and statins in the meantime. 2. Hx of CAD, s/ PCI 3. DM 4. HTN Subjective Subjective Sinus rhythm at 70. Objective Last 24 Hour Vital Signs Date Time Temp Pulse Resp B/P Pulse Ox O2 Delivery O2 Flow Rate FiO2 02/15/17 21:25 135/87 02/15/17 20:02 94 Room Air 21 02/15/17 20:02 Room Air 02/15/17 20:00 98.8 95 20 135/87 100 Room Air 2.0 28 02/15/17 15:59 76 02/15/17 15:44 97.9 77 19 156/89 94 Room Air 02/15/17 14:07 146/83 02/15/17 12:15 74 02/15/17 12:04 97.0 79 20 146/83 100 Room Air 02/15/17 08:57 88 167/79 02/15/17 08:57 167/79 02/15/17 08:56 88 167/79 02/15/17 08:11 Nasal Cannula 2.0 28 02/15/17 08:11 96 Nasal Cannula 2.0 28 02/15/17 08:00 97.5 88 20 167/79 100 Nasal Cannula 2.0 02/15/17 07:36 84 02/15/17 05:58 120/73 02/15/17 04:00 83 02/15/17 04:00 97.9 79 20 120/73 100 Room Air 02/15/17 00:00 77 02/15/17 00:00 98.0 84 20 150/89 97 Room Air Intake and Output 02/14/17 02/15/17 19:00 07:00 # Voids 1 1 # Bowel Movements 1 2D Echo: LVEF 65%, mild LVH, RVSP 15 mmHg, Grade I lVDD Laboratory Tests Test 02/15/17 07:40 White Blood Count 11.3 K/UL (4.8-10.8) H Red Blood Count 4.85 M/UL (4.20-5.40) Hemoglobin 12.7 G/DL (12.0-16.0) Hematocrit 39.8 % (37.0-47.0) Mean Corpuscular Volume 82 FL (80-99) Mean Corpuscular Hemoglobin 26.3 PG (27.0-31.0) L Mean Corpuscular Hemoglobin Concent 32.0 G/DL (32.0-36.0) Red Cell Distribution Width 13.3 % (11.6-14.8) Platelet Count 305 K/UL (150-450) Mean Platelet Volume 7.0 FL (6.5-10.1) Neutrophils (%) (Auto) 50.9 % (45.0-75.0) Lymphocytes (%) (Auto) 34.8 % (20.0-45.0) Monocytes (%) (Auto) 4.8 % (1.0-10.0) Eosinophils (%) (Auto) 8.3 % (0.0-3.0) H Basophils (%) (Auto) 1.2 % (0.0-2.0) Sodium Level 135 mEQ/L (135-145) Potassium Level 3.9 mEQ/L (3.4-4.9) Chloride Level 99 mEQ/L (98-107) Carbon Dioxide Level 27 mEQ/L (20-30) Anion Gap 9 (5-15) Blood Urea Nitrogen 17 mg/dL (7-23) Creatinine 1.0 mg/dL (0.5-0.9) H Estimat Glomerular Filtration Rate mL/min (>60) Glucose Level 131 mg/dL (74-106) H Calcium Level 9.7 mg/dL (8.6-10.2) Microbiology Date/Time Source Procedure Growth Status 02/13/17 02:00 Nasal Nares Right MRSA Culture - Final NO METHICILLIN RESISTANT STAPH AUREUS... Complete 02/13/17 02:00 Rectal Mucosa VRE Culture - Final NO VANCOMYCIN RESISTANT ENTEROCOCCUS ... Complete Objective HEENT: Atraumatic and normocephalic. Anicteric. Pupils are equal, round, and reactive to light and accommodation. Extraocular muscles are intact. NECK: JVP less than 5 cm. No carotid bruit. Carotid upstroke is 2+ bilaterally. CARDIOVASCULAR: Normal S1 and S2. Regular rate and rhythm. No murmurs, gallops, or rubs. PMI is at fourth intercostal space at the midclavicular line. LUNGS: Clear to auscultation bilaterally. ABDOMEN: Soft, nontender, and nondistended. No hepatosplenomegaly. Positive bowel sounds. EXTREMITIES: No evidence of edema, clubbing, or cyanosis. MARTA HARVEY Feb 15, 2017 22:48
[2017-02-16] VITALS (7 sets, daily range): BP systolic 126–140; BP diastolic 53–96
[2017-02-16] MEDS: Nitroglycerin Patch 0.4mg TDERMAL SCH ×3 (06:21→22:23)
[2017-02-16] MEDS: Heparin 5000 units/ml inj SUBQ SCH ×3 (06:22→22:26)
[2017-02-16] MEDS: NovoLOG Insulin Flexpen SUBQ SCH ×4 (06:23→21:00)
[2017-02-16 07:49] LABS: EOSINOPHILS % (AUTO) 9.4 % (0.0-3.0); MEAN CORPUSCULAR HEMOGLOBIN 26.6 PG (27.0-31.0); MEAN CORPUSCULAR HGB CONC 32.4 G/DL (32.0-36.0); MEAN CORPUSCULAR VOLUME 82 FL (80-99); MEAN PLATELET VOLUME 6.8 FL (6.5-10.1); MONOCYTES % (AUTO) 6.1 % (1.0-10.0); NEUTROPHILS % (AUTO) 47.6 % (45.0-75.0); PLATELET COUNT 266 K/UL (150-450); RED BLOOD COUNT 4.48 M/UL (4.20-5.40); RED CELL DISTRIBUTION WIDTH 13.3 % (11.6-14.8)
[2017-02-16 08:02] LABS: ANION GAP 12 (5-15); CALCIUM 9.4 mg/dL (8.6-10.2); CARBON DIOXIDE 27 mEQ/L (20-30); CHLORIDE 100 mEQ/L (98-107); HEMOLYSIS 0; POTASSIUM 4.1 mEQ/L (3.4-4.9); SODIUM 139 mEQ/L (135-145)
[2017-02-16] MEDS: Aspirin EC 81mg tab ORAL SCH (09:08)
[2017-02-16] MEDS: Metoprolol 50mg tab ORAL SCH (09:09)
--- NOTE | 2017-02-16 14:15 | Pulmonology Progress Note ---
Assessment/Plan Problems: (1) ACS (acute coronary syndrome) (2) Diabetes (3) Hypertension (4) DDD (degenerative disc disease), thoracic Assessment/Plan pt needs cardiac cath. transfer pending f/u cardio recommendations Subjective ROS Limited/Unobtainable: No Interval Events: pt refused to go to [facility] in [place]. Allergies: Coded Allergies: AMOXICILLIN (Verified Allergy, Severe, HIVES, 01/01/13) PENICILLINS (Verified Allergy, Severe, HIVES, 01/01/13) STRAWBERRY (Verified Allergy, Intermediate, Hives, 02/13/17) Objective Last 24 Hour Vital Signs Date Time Temp Pulse Resp B/P Pulse Ox O2 Delivery O2 Flow Rate FiO2 02/16/17 12:23 Room Air 21 02/16/17 12:23 99 Room Air 21 02/16/17 12:12 98.0 81 18 136/65 99 Room Air 02/16/17 12:00 75 02/16/17 09:09 74 137/62 02/16/17 09:09 74 137/62 02/16/17 09:07 137/72 02/16/17 08:00 80 02/16/17 08:00 98.2 74 18 137/62 100 Room Air 02/16/17 06:21 158/75 02/16/17 04:12 97.3 76 20 126/69 Room Air 02/16/17 04:00 76 02/16/17 00:00 82 02/16/17 00:00 97.7 79 20 140/96 100 Room Air 2.0 21 02/15/17 21:25 135/87 02/15/17 20:02 94 Room Air 02/15/17 20:02 Room Air 02/15/17 20:00 98.8 95 20 135/87 100 Room Air 2.0 28 02/15/17 20:00 70 02/15/17 15:59 76 02/15/17 15:44 97.9 77 19 156/89 94 Room Air Intake and Output 02/15/17 02/16/17 19:00 07:00 Intake Total 120 ml 500 ml Balance 120 ml 500 ml Intake Oral 120 ml Other 500 ml # Voids 1 1 Objective General Appearance: WD/WN HEENT: normocephalic, atraumatic Respiratory/Chest: chest wall non-tender, lungs clear Cardiovascular: normal peripheral pulses, normal rate Abdomen: normal bowel sounds, soft, non tender Genitourinary: normal external genitalia Extremities: no cyanosis Skin: no rash 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 Lymphatic: no neck adenopathy Musculoskeletal: normal muscle bulk Laboratory Tests 02/16/17 06:55: White Blood Count 10.0, Red Blood Count 4.48, Hemoglobin 11.9L, Hematocrit 36.8L , Mean Corpuscular Volume 82, Mean Corpuscular Hemoglobin 26.6L, Mean Corpuscular Hemoglobin Concent 32.4, Red Cell Distribution Width 13.3, Platelet Count 266, Mean Platelet Volume 6.8, Neutrophils (%) (Auto) 47.6, Lymphocytes (% ) (Auto) 36.0, Monocytes (%) (Auto) 6.1, Eosinophils (%) (Auto) 9.4H, Basophils (%) (Auto) 1.0, Sodium Level 139, Potassium Level 4.1, Chloride Level 100, Carbon Dioxide Level 27, Anion Gap 12, Blood Urea Nitrogen 17, Creatinine 1.0H, Estimat Glomerular Filtration Rate , Glucose Level 112H, Calcium Level 9.4 Current Medications Medications (Trade) Dose Ordered Sig/Tasia Route PRN Reason Start Time Stop Time Status Last Admin Dose Admin Acetaminophen (Tylenol) 650 mg Q6H PRN ORAL Mild Pain/Temp > 100.5 02/13/17 07:30 03/15/17 07:29 Acetaminophen/ Hydrocodone Bitart ([place] 5/325) 1 tab Q6H PRN ORAL For Pain 02/13/17 13:30 02/20/17 13:29 02/14/17 03:24 Amlodipine Besylate (Norvasc) 10 mg DAILY ORAL 02/14/17 09:00 03/16/17 08:59 02/16/17 09:09 Aspirin (Ecotrin) 81 mg DAILY ORAL 02/14/17 09:00 03/16/17 08:59 02/16/17 09:08 Atorvastatin Calcium (Lipitor) 80 mg BEDTIME ORAL 02/13/17 21:00 03/15/17 20:59 02/15/17 21:25 Benazepril HCl (Lotensin) 40 mg DAILY ORAL 02/14/17 09:00 03/16/17 08:59 02/16/17 09:07 Clopidogrel Bisulfate (Plavix) 75 mg DAILY ORAL 02/14/17 09:00 03/16/17 08:59 02/16/17 09:08 Dextrose (Dextrose 50%) STAT PRN IV Hypoglycemia 02/13/17 06:15 03/15/17 06:14 Heparin Sodium (Porcine) (Heparin 5000 units/ml) 5,000 units EVERY 8 HOURS SUBQ 02/13/17 14:00 03/15/17 13:59 02/16/17 06:22 Insulin Aspart (NovoLOG) BEFORE MEALS AND HS SUBQ 02/13/17 06:30 03/15/17 06:29 02/16/17 11:52 Metoprolol Tartrate (Lopressor) 150 mg DAILY ORAL 02/16/17 09:00 03/18/17 08:59 02/16/17 09:09 Nitroglycerin (Ntg) 0.4 mg Q5M PRN SL Prn Chest Pain 02/13/17 06:15 03/15/17 06:14 02/13/17 06:15 Nitroglycerin (Ntg) 1 patch EVERY 8 HOURS TDERMAL 02/13/17 14:00 03/15/17 13:59 02/16/17 06:21 Pantoprazole (Protonix) 40 mg ACBREAKFAST ORAL 02/13/17 09:00 03/15/17 08:59 02/16/17 06:20 RONY CRUZ Feb 16, 2017 14:15
--- NOTE | 2017-02-16 17:39 | Internal Med Progress Note ---
Subjective Date of Service: Feb 16, 2017 Physician Name Junior Montero Attending Physician Candelario Guzman MD Current Medications Medications (Trade) Dose Ordered Sig/Tasia Route PRN Reason Start Time Stop Time Status Last Admin Dose Admin Acetaminophen (Tylenol) 650 mg Q6H PRN ORAL Mild Pain/Temp > 100.5 02/13/17 07:30 03/15/17 07:29 Acetaminophen/ Hydrocodone Bitart ([place] 5/325) 1 tab Q6H PRN ORAL For Pain 02/13/17 13:30 02/20/17 13:29 02/14/17 03:24 Amlodipine Besylate (Norvasc) 10 mg DAILY ORAL 02/14/17 09:00 03/16/17 08:59 02/16/17 09:09 Aspirin (Ecotrin) 81 mg DAILY ORAL 02/14/17 09:00 03/16/17 08:59 02/16/17 09:08 Atorvastatin Calcium (Lipitor) 80 mg BEDTIME ORAL 02/13/17 21:00 03/15/17 20:59 02/15/17 21:25 Benazepril HCl (Lotensin) 40 mg DAILY ORAL 02/14/17 09:00 03/16/17 08:59 02/16/17 09:07 Clopidogrel Bisulfate (Plavix) 75 mg DAILY ORAL 02/14/17 09:00 03/16/17 08:59 02/16/17 09:08 Dextrose (Dextrose 50%) STAT PRN IV Hypoglycemia 02/13/17 06:15 03/15/17 06:14 Heparin Sodium (Porcine) (Heparin 5000 units/ml) 5,000 units EVERY 8 HOURS SUBQ 02/13/17 14:00 03/15/17 13:59 02/16/17 15:02 Insulin Aspart (NovoLOG) BEFORE MEALS AND HS SUBQ 02/13/17 06:30 03/15/17 06:29 02/16/17 16:52 Metoprolol Tartrate (Lopressor) 150 mg DAILY ORAL 02/16/17 09:00 03/18/17 08:59 02/16/17 09:09 Nitroglycerin (Ntg) 0.4 mg Q5M PRN SL Prn Chest Pain 02/13/17 06:15 03/15/17 06:14 02/13/17 06:15 Nitroglycerin (Ntg) 1 patch EVERY 8 HOURS TDERMAL 02/13/17 14:00 03/15/17 13:59 02/16/17 15:04 Pantoprazole (Protonix) 40 mg ACBREAKFAST ORAL 02/13/17 09:00 03/15/17 08:59 02/16/17 06:20 Allergies: Coded Allergies: AMOXICILLIN (Verified Allergy, Severe, HIVES, 01/01/13) PENICILLINS (Verified Allergy, Severe, HIVES, 01/01/13) STRAWBERRY (Verified Allergy, Intermediate, Hives, 02/13/17) ROS Limited/Unobtainable: No Constitutional: Reports: no symptoms HEENT: Reports: no symptoms Cardiovascular: Reports: chest pain Respiratory: Reports: no symptoms Gastrointestinal/Abdominal: Reports: no symptoms Genitourinary: Reports: no symptoms Neurologic/Psychiatric: Reports: no symptoms Subjective 77 YO F admitted with chest pain. Await transfer to [facility] for Cardiac Cath.. [facility]-Dr Guzman. Objective Last Vital Signs Date Time Temp Pulse Resp B/P Pulse Ox O2 Delivery O2 Flow Rate FiO2 02/16/17 16:00 97.5 74 18 139/72 98 Room Air 02/16/17 12:23 21 02/16/17 00:00 2.0 Laboratory Tests Test 02/16/17 06:55 White Blood Count 10.0 K/UL (4.8-10.8) Red Blood Count 4.48 M/UL (4.20-5.40) Hemoglobin 11.9 G/DL (12.0-16.0) L Hematocrit 36.8 % (37.0-47.0) L Mean Corpuscular Volume 82 FL (80-99) Mean Corpuscular Hemoglobin 26.6 PG (27.0-31.0) L Mean Corpuscular Hemoglobin Concent 32.4 G/DL (32.0-36.0) Red Cell Distribution Width 13.3 % (11.6-14.8) Platelet Count 266 K/UL (150-450) Mean Platelet Volume 6.8 FL (6.5-10.1) Neutrophils (%) (Auto) 47.6 % (45.0-75.0) Lymphocytes (%) (Auto) 36.0 % (20.0-45.0) Monocytes (%) (Auto) 6.1 % (1.0-10.0) Eosinophils (%) (Auto) 9.4 % (0.0-3.0) H Basophils (%) (Auto) 1.0 % (0.0-2.0) Sodium Level 139 mEQ/L (135-145) Potassium Level 4.1 mEQ/L (3.4-4.9) Chloride Level 100 mEQ/L (98-107) Carbon Dioxide Level 27 mEQ/L (20-30) Anion Gap 12 (5-15) Blood Urea Nitrogen 17 mg/dL (7-23) Creatinine 1.0 mg/dL (0.5-0.9) H Estimat Glomerular Filtration Rate mL/min (>60) Glucose Level 112 mg/dL (74-106) H Calcium Level 9.4 mg/dL (8.6-10.2) Intake and Output 02/15/17 02/16/17 19:00 07:00 Intake Total 120 ml 500 ml Balance 120 ml 500 ml Intake Oral 120 ml Other 500 ml # Voids 1 1 Objective General: alert, cooperative, no distress, appears stated age Head: normocephalic, without obvious abnormality, atraumatic Eyes: conjunctivae/corneas clear. PERRL, EOM's intact Throat: lips, mucosa, and tongue normal. MMM Neck: supple, symmetrical, trachea midline, and no JVD Lungs: clear to auscultation bilaterally Heart: regular rate and rhythm, S1, S2 normal, no murmur, click, rub or gallop Abdomen: soft, non-tender, non-distended, bowel sounds normal; no masses or organomegaly Extremities: extremities normal, atraumatic, no cyanosis or edema Pulses: 2+ and symmetric Skin: skin color, texture, turgor normal; no rashes or lesions Neurologic: grossly normal, no focal deficits Assessment/Plan Problem List: (1) HTN (hypertension) Assessment & Plan: Cont amlodipine, benazepril and metoprolol (2) Hypercholesteremia (3) Chest pain Assessment & Plan: See cardiology note. Await cardiac stress test result-R/O acute coronary synd (4) Diabetes Assessment & Plan: Cont novolog sliding scale. (5) Hypercholesterolemia Assessment & Plan: Cont Lipitor (6) Coronary artery disease Assessment & Plan: See cardiology note. Will require cardiac cath-patient refused [facility]; await transfer to [facility]. (7) ACS (acute coronary syndrome) Status: not improved Assessment/Plan Await transfer to [facility] for Card cath. JUNIRO MONTERO Feb 16, 2017 17:39
[2017-02-16] MEDS: Atorvastatin 80mg tab ORAL SCH (22:24)
[2017-02-17] VITALS: BP 140/72
[2017-02-17 04:02] VITALS: BP 143/76
[2017-02-17] MEDS: Nitroglycerin Patch 0.4mg TDERMAL SCH ×3 (05:45→21:54)
[2017-02-17] MEDS: Heparin 5000 units/ml inj SUBQ SCH ×3 (05:48→21:55)
[2017-02-17] MEDS: NovoLOG Insulin Flexpen SUBQ SCH ×4 (05:49→20:46)
[2017-02-17 06:56] LABS: ANION GAP 11 (5-15); CALCIUM 9.2 mg/dL (8.6-10.2); CARBON DIOXIDE 26 mEQ/L (20-30); CHLORIDE 100 mEQ/L (98-107); CREATININE 1.1 mg/dL (0.5-0.9); HEMOLYSIS 0; POTASSIUM 4.3 mEQ/L (3.4-4.9); SODIUM 137 mEQ/L (135-145)
[2017-02-17 07:00] LABS: BASOPHILS % (AUTO) 1.5 % (0.0-2.0); EOSINOPHILS % (AUTO) 11.8 % (0.0-3.0); LYMPHOCYTES % (AUTO) 37.3 % (20.0-45.0); MEAN CORPUSCULAR HEMOGLOBIN 26.6 PG (27.0-31.0); MEAN CORPUSCULAR HGB CONC 32.4 G/DL (32.0-36.0); MEAN CORPUSCULAR VOLUME 82 FL (80-99); MEAN PLATELET VOLUME 6.6 FL (6.5-10.1); MONOCYTES % (AUTO) 6.7 % (1.0-10.0); NEUTROPHILS % (AUTO) 42.7 % (45.0-75.0); PLATELET COUNT 266 K/UL (150-450); RED BLOOD COUNT 4.36 M/UL (4.20-5.40); RED CELL DISTRIBUTION WIDTH 13.5 % (11.6-14.8); WHITE BLOOD COUNT 9.2 K/UL (4.8-10.8)
[2017-02-17 08:02] VITALS: BP 132/79
[2017-02-17] MEDS: Aspirin EC 81mg tab ORAL SCH (09:24)
[2017-02-17] MEDS: Metoprolol 50mg tab ORAL SCH (09:26)
[2017-02-17 11:36] VITALS: BP 136/67
--- NOTE | 2017-02-17 14:16 | Pulmonology Progress Note ---
Assessment/Plan Problems: (1) ACS (acute coronary syndrome) (2) Diabetes (3) Hypertension (4) DDD (degenerative disc disease), thoracic Assessment/Plan pt needs cardiac cath. transfer pending refusing to go to [facility] [place] continue ASA, Plavix etc f/u cardio recommendations Subjective ROS Limited/Unobtainable: No Allergies: Coded Allergies: AMOXICILLIN (Verified Allergy, Severe, HIVES, 01/01/13) PENICILLINS (Verified Allergy, Severe, HIVES, 01/01/13) STRAWBERRY (Verified Allergy, Intermediate, Hives, 02/13/17) Objective Last 24 Hour Vital Signs Date Time Temp Pulse Resp B/P Pulse Ox O2 Delivery O2 Flow Rate FiO2 02/17/17 11:55 68 02/17/17 11:36 97.7 70 18 136/67 95 Room Air 02/17/17 09:26 78 132/79 02/17/17 09:24 132/79 02/17/17 09:24 78 132/79 02/17/17 08:02 97.7 78 19 132/79 100 Room Air 02/17/17 08:01 75 02/17/17 05:45 127/64 02/17/17 04:02 97.7 75 18 143/76 93 Room Air 02/17/17 04:00 80 02/17/17 00:00 71 02/17/17 00:00 98.4 75 18 140/72 100 Room Air 02/16/17 22:23 148/77 02/16/17 20:24 97.7 69 19 138/76 95 Room Air 02/16/17 20:00 68 02/16/17 20:00 96 02/16/17 19:36 Room Air 02/16/17 19:36 98 Room Air 02/16/17 16:00 97.5 74 18 139/72 98 Room Air 02/16/17 15:24 73 02/16/17 15:04 139/53 02/16/17 14:43 71 139/53 Intake and Output 02/16/17 02/17/17 19:00 07:00 Intake Total 820 ml 400 ml Balance 820 ml 400 ml Intake Oral 820 ml 400 ml # Voids 1 1 Objective General Appearance: WD/WN HEENT: normocephalic, atraumatic Respiratory/Chest: chest wall non-tender, lungs clear Cardiovascular: normal peripheral pulses, normal rate Abdomen: normal bowel sounds, soft, non tender Genitourinary: normal external genitalia Extremities: no cyanosis Skin: no rash 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 Lymphatic: no neck adenopathy Musculoskeletal: normal muscle bulk Laboratory Tests 02/17/17 06:15: White Blood Count 9.2, Red Blood Count 4.36, Hemoglobin 11.6L, Hematocrit 35.7L , Mean Corpuscular Volume 82, Mean Corpuscular Hemoglobin 26.6L, Mean Corpuscular Hemoglobin Concent 32.4, Red Cell Distribution Width 13.5, Platelet Count 266, Mean Platelet Volume 6.6, Neutrophils (%) (Auto) 42.7L, Lymphocytes ( %) (Auto) 37.3, Monocytes (%) (Auto) 6.7, Eosinophils (%) (Auto) 11.8H, Basophils (%) (Auto) 1.5, Sodium Level 137, Potassium Level 4.3, Chloride Level 100, Carbon Dioxide Level 26, Anion Gap 11, Blood Urea Nitrogen 25H, Creatinine 1.1H, Estimat Glomerular Filtration Rate , Glucose Level 119H, Calcium Level 9.2 Current Medications Medications (Trade) Dose Ordered Sig/Tasia Route PRN Reason Start Time Stop Time Status Last Admin Dose Admin Acetaminophen (Tylenol) 650 mg Q6H PRN ORAL Mild Pain/Temp > 100.5 02/13/17 07:30 03/15/17 07:29 Acetaminophen/ Hydrocodone Bitart ([place] 5/325) 1 tab Q6H PRN ORAL For Pain 02/13/17 13:30 02/20/17 13:29 02/14/17 03:24 Amlodipine Besylate (Norvasc) 10 mg DAILY ORAL 02/14/17 09:00 03/16/17 08:59 02/17/17 09:24 Aspirin (Ecotrin) 81 mg DAILY ORAL 02/14/17 09:00 03/16/17 08:59 02/17/17 09:24 Atorvastatin Calcium (Lipitor) 80 mg BEDTIME ORAL 02/13/17 21:00 03/15/17 20:59 02/16/17 22:24 Benazepril HCl (Lotensin) 40 mg DAILY ORAL 02/14/17 09:00 03/16/17 08:59 02/17/17 09:24 Clopidogrel Bisulfate (Plavix) 75 mg DAILY ORAL 02/14/17 09:00 03/16/17 08:59 02/17/17 09:24 Dextrose (Dextrose 50%) STAT PRN IV Hypoglycemia 02/13/17 06:15 03/15/17 06:14 Heparin Sodium (Porcine) (Heparin 5000 units/ml) 5,000 units EVERY 8 HOURS SUBQ 02/13/17 14:00 03/15/17 13:59 02/17/17 05:48 Insulin Aspart (NovoLOG) BEFORE MEALS AND HS SUBQ 02/13/17 06:30 03/15/17 06:29 02/17/17 12:07 Metoprolol Tartrate (Lopressor) 150 mg DAILY ORAL 02/16/17 09:00 03/18/17 08:59 02/17/17 09:26 Nitroglycerin (Ntg) 0.4 mg Q5M PRN SL Prn Chest Pain 02/13/17 06:15 03/15/17 06:14 02/13/17 06:15 Nitroglycerin (Ntg) 1 patch EVERY 8 HOURS TDERMAL 02/13/17 14:00 03/15/17 13:59 02/17/17 05:45 Pantoprazole (Protonix) 40 mg ACBREAKFAST ORAL 02/13/17 09:00 03/15/17 08:59 02/17/17 05:40 RONY CRUZ Feb 17, 2017 14:16
[2017-02-17 15:30] VITALS: BP 135/63
--- NOTE | 2017-02-17 18:54 | Internal Med Progress Note ---
Subjective Date of Service: Feb 17, 2017 Physician Name Richard Montero Attending Physician Candelario Guzman MD Current Medications Medications (Trade) Dose Ordered Sig/Tasia Route PRN Reason Start Time Stop Time Status Last Admin Dose Admin Acetaminophen (Tylenol) 650 mg Q6H PRN ORAL Mild Pain/Temp > 100.5 02/13/17 07:30 03/15/17 07:29 Acetaminophen/ Hydrocodone Bitart ([place] 5/325) 1 tab Q6H PRN ORAL For Pain 02/13/17 13:30 02/20/17 13:29 02/14/17 03:24 Amlodipine Besylate (Norvasc) 10 mg DAILY ORAL 02/14/17 09:00 03/16/17 08:59 02/17/17 09:24 Aspirin (Ecotrin) 81 mg DAILY ORAL 02/14/17 09:00 03/16/17 08:59 02/17/17 09:24 Atorvastatin Calcium (Lipitor) 80 mg BEDTIME ORAL 02/13/17 21:00 03/15/17 20:59 02/16/17 22:24 Benazepril HCl (Lotensin) 40 mg DAILY ORAL 02/14/17 09:00 03/16/17 08:59 02/17/17 09:24 Clopidogrel Bisulfate (Plavix) 75 mg DAILY ORAL 02/14/17 09:00 03/16/17 08:59 02/17/17 09:24 Dextrose (Dextrose 50%) STAT PRN IV Hypoglycemia 02/13/17 06:15 03/15/17 06:14 Heparin Sodium (Porcine) (Heparin 5000 units/ml) 5,000 units EVERY 8 HOURS SUBQ 02/13/17 14:00 03/15/17 13:59 02/17/17 14:31 Insulin Aspart (NovoLOG) BEFORE MEALS AND HS SUBQ 02/13/17 06:30 03/15/17 06:29 02/17/17 17:00 Metoprolol Tartrate (Lopressor) 150 mg DAILY ORAL 02/16/17 09:00 03/18/17 08:59 02/17/17 09:26 Nitroglycerin (Ntg) 0.4 mg Q5M PRN SL Prn Chest Pain 02/13/17 06:15 03/15/17 06:14 02/13/17 06:15 Nitroglycerin (Ntg) 1 patch EVERY 8 HOURS TDERMAL 02/13/17 14:00 03/15/17 13:59 02/17/17 14:30 Pantoprazole (Protonix) 40 mg ACBREAKFAST ORAL 02/13/17 09:00 03/15/17 08:59 02/17/17 05:40 Allergies: Coded Allergies: AMOXICILLIN (Verified Allergy, Severe, HIVES, 01/01/13) PENICILLINS (Verified Allergy, Severe, HIVES, 01/01/13) STRAWBERRY (Verified Allergy, Intermediate, Hives, 02/13/17) ROS Limited/Unobtainable: No Constitutional: Reports: no symptoms HEENT: Reports: no symptoms Cardiovascular: Reports: chest pain Respiratory: Reports: no symptoms Gastrointestinal/Abdominal: Reports: no symptoms Genitourinary: Reports: no symptoms Neurologic/Psychiatric: Reports: no symptoms Subjective 77 YO F admitted with chest pain. Await transfer to [facility] for Cardiac Cath. Cover for [facility]-Dr Guzman. Objective Last Vital Signs Date Time Temp Pulse Resp B/P Pulse Ox O2 Delivery O2 Flow Rate FiO2 02/17/17 15:43 84 02/17/17 15:30 97.1 18 135/63 100 Room Air 02/16/17 12:23 21 02/16/17 00:00 2.0 Laboratory Tests Test 02/17/17 06:15 White Blood Count 9.2 K/UL (4.8-10.8) Red Blood Count 4.36 M/UL (4.20-5.40) Hemoglobin 11.6 G/DL (12.0-16.0) L Hematocrit 35.7 % (37.0-47.0) L Mean Corpuscular Volume 82 FL (80-99) Mean Corpuscular Hemoglobin 26.6 PG (27.0-31.0) L Mean Corpuscular Hemoglobin Concent 32.4 G/DL (32.0-36.0) Red Cell Distribution Width 13.5 % (11.6-14.8) Platelet Count 266 K/UL (150-450) Mean Platelet Volume 6.6 FL (6.5-10.1) Neutrophils (%) (Auto) 42.7 % (45.0-75.0) L Lymphocytes (%) (Auto) 37.3 % (20.0-45.0) Monocytes (%) (Auto) 6.7 % (1.0-10.0) Eosinophils (%) (Auto) 11.8 % (0.0-3.0) H Basophils (%) (Auto) 1.5 % (0.0-2.0) Sodium Level 137 mEQ/L (135-145) Potassium Level 4.3 mEQ/L (3.4-4.9) Chloride Level 100 mEQ/L (98-107) Carbon Dioxide Level 26 mEQ/L (20-30) Anion Gap 11 (5-15) Blood Urea Nitrogen 25 mg/dL (7-23) H Creatinine 1.1 mg/dL (0.5-0.9) H Estimat Glomerular Filtration Rate mL/min (>60) Glucose Level 119 mg/dL (74-106) H Calcium Level 9.2 mg/dL (8.6-10.2) Intake and Output 02/16/17 02/17/17 19:00 07:00 Intake Total 820 ml 400 ml Balance 820 ml 400 ml Intake Oral 820 ml 400 ml # Voids 1 1 Objective General: alert, cooperative, no distress, appears stated age Head: normocephalic, without obvious abnormality, atraumatic Eyes: conjunctivae/corneas clear. PERRL, EOM's intact Throat: lips, mucosa, and tongue normal. MMM Neck: supple, symmetrical, trachea midline, and no JVD Lungs: clear to auscultation bilaterally Heart: regular rate and rhythm, S1, S2 normal, no murmur, click, rub or gallop Abdomen: soft, non-tender, non-distended, bowel sounds normal; no masses or organomegaly Extremities: extremities normal, atraumatic, no cyanosis or edema Pulses: 2+ and symmetric Skin: skin color, texture, turgor normal; no rashes or lesions Neurologic: grossly normal, no focal deficits Assessment/Plan Problem List: (1) HTN (hypertension) Assessment & Plan: Cont amlodipine, benazepril and metoprolol (2) Hypercholesteremia (3) Chest pain Assessment & Plan: See cardiology note. Cardiac stress test result=ant and lat ischemia. Await transfer to [facility] for cardiac cath. (4) Diabetes Assessment & Plan: Cont novolog sliding scale. (5) Hypercholesterolemia Assessment & Plan: Cont Lipitor (6) Coronary artery disease Assessment & Plan: See cardiology note. Will require cardiac cath-patient refused [facility]; await transfer to [facility]. (7) ACS (acute coronary syndrome) Status: not improved Assessment/Plan Await transfer to [facility] for Card cath. RICHARD MONTERO Feb 17, 2017 18:54
[2017-02-17 20:00] VITALS: BP 169/79
[2017-02-17] MEDS: Atorvastatin 80mg tab ORAL SCH (20:40)
--- NOTE | 2017-02-17 23:39 | Cardiology Progress Note ---
Assessment/Plan Assessment/Plan 1. Chest pain, lateral wall ischemia on the nuclear stress test consistent with ischemia, refuses to go to [facility] for cardiac cath. She is in the [facility] waiting list. Continue ASA, plavix and statins in the meantime. 2. Hx of CAD, s/ PCI 3. DM 4. HTN Subjective Subjective Sinus rhythm at 78. Denies chest pain or SOB. Refused to be transferred to [facility] Objective Last 24 Hour Vital Signs Date Time Temp Pulse Resp B/P Pulse Ox O2 Delivery O2 Flow Rate FiO2 02/17/17 21:54 135/72 02/17/17 20:41 169/78 02/17/17 20:00 93.3 74 18 169/79 93 Room Air 02/17/17 15:43 84 02/17/17 15:30 97.1 69 18 135/63 100 Room Air 02/17/17 14:30 136/67 02/17/17 11:55 68 02/17/17 11:36 97.7 70 18 136/67 95 Room Air 02/17/17 09:26 78 132/79 02/17/17 09:24 132/79 02/17/17 09:24 78 132/79 02/17/17 08:02 97.7 78 19 132/79 100 Room Air 02/17/17 08:01 75 02/17/17 05:45 127/64 02/17/17 04:02 97.7 75 18 143/76 93 Room Air 02/17/17 04:00 80 02/17/17 00:00 71 02/17/17 00:00 98.4 75 18 140/72 100 Room Air Intake and Output 02/16/17 02/17/17 19:00 07:00 Intake Total 820 ml 400 ml Balance 820 ml 400 ml Intake Oral 820 ml 400 ml # Voids 1 1 2D Echo: LVEF 65%, mild LVH, RVSP 15 mmHg, Grade I lVDD Laboratory Tests Test 02/17/17 06:15 White Blood Count 9.2 K/UL (4.8-10.8) Red Blood Count 4.36 M/UL (4.20-5.40) Hemoglobin 11.6 G/DL (12.0-16.0) L Hematocrit 35.7 % (37.0-47.0) L Mean Corpuscular Volume 82 FL (80-99) Mean Corpuscular Hemoglobin 26.6 PG (27.0-31.0) L Mean Corpuscular Hemoglobin Concent 32.4 G/DL (32.0-36.0) Red Cell Distribution Width 13.5 % (11.6-14.8) Platelet Count 266 K/UL (150-450) Mean Platelet Volume 6.6 FL (6.5-10.1) Neutrophils (%) (Auto) 42.7 % (45.0-75.0) L Lymphocytes (%) (Auto) 37.3 % (20.0-45.0) Monocytes (%) (Auto) 6.7 % (1.0-10.0) Eosinophils (%) (Auto) 11.8 % (0.0-3.0) H Basophils (%) (Auto) 1.5 % (0.0-2.0) Sodium Level 137 mEQ/L (135-145) Potassium Level 4.3 mEQ/L (3.4-4.9) Chloride Level 100 mEQ/L (98-107) Carbon Dioxide Level 26 mEQ/L (20-30) Anion Gap 11 (5-15) Blood Urea Nitrogen 25 mg/dL (7-23) H Creatinine 1.1 mg/dL (0.5-0.9) H Estimat Glomerular Filtration Rate mL/min (>60) Glucose Level 119 mg/dL (74-106) H Calcium Level 9.2 mg/dL (8.6-10.2) Objective HEENT: Atraumatic and normocephalic. Anicteric. Pupils are equal, round, and reactive to light and accommodation. Extraocular muscles are intact. NECK: JVP less than 5 cm. No carotid bruit. Carotid upstroke is 2+ bilaterally. CARDIOVASCULAR: Normal S1 and S2. Regular rate and rhythm. No murmurs, gallops, or rubs. PMI is at fourth intercostal space at the midclavicular line. LUNGS: Clear to auscultation bilaterally. ABDOMEN: Soft, nontender, and nondistended. No hepatosplenomegaly. Positive bowel sounds. EXTREMITIES: No evidence of edema, clubbing, or cyanosis. MARTA HARVEY Feb 17, 2017 23:39
[2017-02-18] VITALS: BP 143/66
[2017-02-18 04:00] VITALS: BP 109/52
[2017-02-18] MEDS: Nitroglycerin Patch 0.4mg TDERMAL SCH ×3 (05:43→21:39)
[2017-02-18] MEDS: NovoLOG Insulin Flexpen SUBQ SCH ×4 (05:49→21:34)
[2017-02-18] MEDS: Heparin 5000 units/ml inj SUBQ SCH ×3 (05:49→21:35)
[2017-02-18 08:00] VITALS: BP 137/67
[2017-02-18 08:24] LABS: ANION GAP 14 (5-15); CALCIUM 9.4 mg/dL (8.6-10.2); CARBON DIOXIDE 25 mEQ/L (20-30); CHLORIDE 99 mEQ/L (98-107); CREATININE 1.2 mg/dL (0.5-0.9); HEMOLYSIS 3; POTASSIUM 4.3 mEQ/L (3.4-4.9); SODIUM 138 mEQ/L (135-145)
[2017-02-18 08:56] LABS: BASOPHILS % (AUTO) 1.1 % (0.0-2.0); EOSINOPHILS % (AUTO) 9.3 % (0.0-3.0); LYMPHOCYTES % (AUTO) 39.3 % (20.0-45.0); MEAN CORPUSCULAR HEMOGLOBIN 27.2 PG (27.0-31.0); MEAN CORPUSCULAR VOLUME 82 FL (80-99); MEAN PLATELET VOLUME 6.6 FL (6.5-10.1); MONOCYTES % (AUTO) 6.3 % (1.0-10.0); NEUTROPHILS % (AUTO) 43.9 % (45.0-75.0); PLATELET COUNT 234 K/UL (150-450); RED BLOOD COUNT 4.27 M/UL (4.20-5.40); RED CELL DISTRIBUTION WIDTH 13.6 % (11.6-14.8); WHITE BLOOD COUNT 8.9 K/UL (4.8-10.8)
[2017-02-18] MEDS: Metoprolol 50mg tab ORAL SCH (09:14)
[2017-02-18] MEDS: Aspirin EC 81mg tab ORAL SCH (09:14)
[2017-02-18 12:00] VITALS: BP 149/73
[2017-02-18 16:00] VITALS: BP 131/65
--- NOTE | 2017-02-18 16:06 | Internal Med Progress Note ---
Subjective Date of Service: Feb 18, 2017 Physician Name Junior Montero Attending Physician Candelario Guzman MD Current Medications Medications (Trade) Dose Ordered Sig/Tasia Route PRN Reason Start Time Stop Time Status Last Admin Dose Admin Acetaminophen (Tylenol) 650 mg Q6H PRN ORAL Mild Pain/Temp > 100.5 02/13/17 07:30 03/15/17 07:29 Acetaminophen/ Hydrocodone Bitart (Reading 5/325) 1 tab Q6H PRN ORAL For Pain 02/13/17 13:30 02/20/17 13:29 02/14/17 03:24 Amlodipine Besylate (Norvasc) 10 mg DAILY ORAL 02/14/17 09:00 03/16/17 08:59 02/18/17 09:14 Aspirin (Ecotrin) 81 mg DAILY ORAL 02/14/17 09:00 03/16/17 08:59 02/18/17 09:14 Atorvastatin Calcium (Lipitor) 80 mg BEDTIME ORAL 02/13/17 21:00 03/15/17 20:59 02/17/17 20:40 Benazepril HCl (Lotensin) 40 mg DAILY ORAL 02/14/17 09:00 03/16/17 08:59 02/18/17 09:14 Clonidine HCl (Catapres) 0.1 mg Q4H PRN ORAL sbp > 160 02/17/17 20:15 03/19/17 20:14 02/17/17 20:41 Clopidogrel Bisulfate (Plavix) 75 mg DAILY ORAL 02/14/17 09:00 03/16/17 08:59 02/18/17 09:13 Dextrose (Dextrose 50%) STAT PRN IV Hypoglycemia 02/13/17 06:15 03/15/17 06:14 Heparin Sodium (Porcine) (Heparin 5000 units/ml) 5,000 units EVERY 8 HOURS SUBQ 02/13/17 14:00 03/15/17 13:59 02/18/17 13:40 Insulin Aspart (NovoLOG) BEFORE MEALS AND HS SUBQ 02/13/17 06:30 03/15/17 06:29 02/18/17 11:41 Metoprolol Tartrate (Lopressor) 150 mg DAILY ORAL 02/16/17 09:00 03/18/17 08:59 02/18/17 09:14 Nitroglycerin (Ntg) 0.4 mg Q5M PRN SL Prn Chest Pain 02/13/17 06:15 03/15/17 06:14 02/13/17 06:15 Nitroglycerin (Ntg) 1 patch EVERY 8 HOURS TDERMAL 02/13/17 14:00 03/15/17 13:59 02/18/17 13:38 Pantoprazole (Protonix) 40 mg ACBREAKFAST ORAL 02/13/17 09:00 03/15/17 08:59 02/18/17 05:43 Allergies: Coded Allergies: AMOXICILLIN (Verified Allergy, Severe, HIVES, 01/01/13) PENICILLINS (Verified Allergy, Severe, HIVES, 01/01/13) STRAWBERRY (Verified Allergy, Intermediate, Hives, 02/13/17) ROS Limited/Unobtainable: No Constitutional: Reports: no symptoms HEENT: Reports: no symptoms Cardiovascular: Reports: chest pain Respiratory: Reports: no symptoms Gastrointestinal/Abdominal: Reports: no symptoms Genitourinary: Reports: no symptoms Neurologic/Psychiatric: Reports: no symptoms Subjective 77 YO F admitted with chest pain. Await transfer to [facility] for Cardiac Cath. Cover for Int Med-Dr Guzman. Objective Last Vital Signs Date Time Temp Pulse Resp B/P Pulse Ox O2 Delivery O2 Flow Rate FiO2 02/18/17 13:38 149/73 02/18/17 12:00 71 02/18/17 12:00 97.5 18 97 Room Air 02/16/17 12:23 21 02/16/17 00:00 2.0 Laboratory Tests Test 02/18/17 07:27 White Blood Count 8.9 K/UL (4.8-10.8) Red Blood Count 4.27 M/UL (4.20-5.40) Hemoglobin 11.6 G/DL (12.0-16.0) L Hematocrit 35.2 % (37.0-47.0) L Mean Corpuscular Volume 82 FL (80-99) Mean Corpuscular Hemoglobin 27.2 PG (27.0-31.0) Mean Corpuscular Hemoglobin Concent 33.0 G/DL (32.0-36.0) Red Cell Distribution Width 13.6 % (11.6-14.8) Platelet Count 234 K/UL (150-450) Mean Platelet Volume 6.6 FL (6.5-10.1) Neutrophils (%) (Auto) 43.9 % (45.0-75.0) L Lymphocytes (%) (Auto) 39.3 % (20.0-45.0) Monocytes (%) (Auto) 6.3 % (1.0-10.0) Eosinophils (%) (Auto) 9.3 % (0.0-3.0) H Basophils (%) (Auto) 1.1 % (0.0-2.0) Sodium Level 138 mEQ/L (135-145) Potassium Level 4.3 mEQ/L (3.4-4.9) Chloride Level 99 mEQ/L (98-107) Carbon Dioxide Level 25 mEQ/L (20-30) Anion Gap 14 (5-15) Blood Urea Nitrogen 30 mg/dL (7-23) H Creatinine 1.2 mg/dL (0.5-0.9) H Estimat Glomerular Filtration Rate mL/min (>60) Glucose Level 156 mg/dL (74-106) H Calcium Level 9.4 mg/dL (8.6-10.2) Intake and Output 02/17/17 02/18/17 19:00 07:00 Intake Total 720 ml Output Total 500 ml Balance 720 ml -500 ml Intake Oral 720 ml Output Urine Total 500 ml Objective General: alert, cooperative, no distress, appears stated age Head: normocephalic, without obvious abnormality, atraumatic Eyes: conjunctivae/corneas clear. PERRL, EOM's intact Throat: lips, mucosa, and tongue normal. MMM Neck: supple, symmetrical, trachea midline, and no JVD Lungs: clear to auscultation bilaterally Heart: regular rate and rhythm, S1, S2 normal, no murmur, click, rub or gallop Abdomen: soft, non-tender, non-distended, bowel sounds normal; no masses or organomegaly Extremities: extremities normal, atraumatic, no cyanosis or edema Pulses: 2+ and symmetric Skin: skin color, texture, turgor normal; no rashes or lesions Neurologic: grossly normal, no focal deficits Assessment/Plan Problem List: (1) HTN (hypertension) Assessment & Plan: Cont amlodipine, benazepril and metoprolol (2) Hypercholesteremia (3) Chest pain Assessment & Plan: See cardiology note. Cardiac stress test result=ant and lat ischemia. Await transfer to [facility] for cardiac cath. (4) Diabetes Assessment & Plan: Cont novolog sliding scale. (5) Hypercholesterolemia Assessment & Plan: Cont Lipitor (6) Coronary artery disease Assessment & Plan: See cardiology note. Will require cardiac cath-patient refused [facility]; await transfer to [facility]. (7) ACS (acute coronary syndrome) Assessment/Plan Await transfer to [facility] for Card cath. JUNIOR MONTERO Feb 18, 2017 16:06
--- NOTE | 2017-02-18 19:05 | Pulmonology Progress Note ---
Assessment/Plan Problems: (1) ACS (acute coronary syndrome) (2) Diabetes (3) Hypertension (4) DDD (degenerative disc disease), thoracic Assessment/Plan on waiting list for [facility] pt needs cardiac cath. transfer pending refusing to go to [facility] continue ASA, Plavix etc f/u cardio recommendations Subjective ROS Limited/Unobtainable: No Allergies: Coded Allergies: AMOXICILLIN (Verified Allergy, Severe, HIVES, 01/01/13) PENICILLINS (Verified Allergy, Severe, HIVES, 01/01/13) STRAWBERRY (Verified Allergy, Intermediate, Hives, 02/13/17) Objective Last 24 Hour Vital Signs Date Time Temp Pulse Resp B/P Pulse Ox O2 Delivery O2 Flow Rate FiO2 02/18/17 16:00 66 02/18/17 16:00 64 18 131/65 100 Room Air 02/18/17 13:38 149/73 02/18/17 12:00 71 02/18/17 12:00 97.5 65 18 149/73 97 Room Air 02/18/17 09:14 66 137/67 02/18/17 09:14 137/67 02/18/17 09:14 66 137/67 02/18/17 08:00 68 02/18/17 08:00 96.4 66 18 137/67 96 Room Air 02/18/17 05:43 136/74 02/18/17 04:00 96.8 66 20 109/52 94 Room Air 02/18/17 03:41 67 02/18/17 00:00 97.3 74 20 143/66 100 Room Air 02/17/17 23:52 69 02/17/17 21:54 135/72 02/17/17 20:41 169/78 02/17/17 20:00 93.3 74 18 169/79 93 Room Air 02/17/17 19:51 69 Intake and Output 02/17/17 02/18/17 19:00 07:00 Intake Total 720 ml Output Total 500 ml Balance 720 ml -500 ml Intake Oral 720 ml Output Urine Total 500 ml Objective General Appearance: WD/WN HEENT: normocephalic, atraumatic Respiratory/Chest: chest wall non-tender, lungs clear Cardiovascular: normal peripheral pulses, normal rate Abdomen: normal bowel sounds, soft, non tender Genitourinary: normal external genitalia Extremities: no cyanosis Skin: no rash 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 Lymphatic: no neck adenopathy Musculoskeletal: normal muscle bulk Laboratory Tests 02/18/17 07:27: White Blood Count 8.9, Red Blood Count 4.27, Hemoglobin 11.6L, Hematocrit 35.2L , Mean Corpuscular Volume 82, Mean Corpuscular Hemoglobin 27.2, Mean Corpuscular Hemoglobin Concent 33.0, Red Cell Distribution Width 13.6, Platelet Count 234, Mean Platelet Volume 6.6, Neutrophils (%) (Auto) 43.9L, Lymphocytes ( %) (Auto) 39.3, Monocytes (%) (Auto) 6.3, Eosinophils (%) (Auto) 9.3H, Basophils (%) (Auto) 1.1, Sodium Level 138, Potassium Level 4.3, Chloride Level 99, Carbon Dioxide Level 25, Anion Gap 14, Blood Urea Nitrogen 30H, Creatinine 1.2H, Estimat Glomerular Filtration Rate , Glucose Level 156H, Calcium Level 9.4 Current Medications Medications (Trade) Dose Ordered Sig/Tasia Route PRN Reason Start Time Stop Time Status Last Admin Dose Admin Acetaminophen (Tylenol) 650 mg Q6H PRN ORAL Mild Pain/Temp > 100.5 02/13/17 07:30 03/15/17 07:29 Acetaminophen/ Hydrocodone Bitart (Benedict 5/325) 1 tab Q6H PRN ORAL For Pain 02/13/17 13:30 02/20/17 13:29 02/14/17 03:24 Amlodipine Besylate (Norvasc) 10 mg DAILY ORAL 02/14/17 09:00 03/16/17 08:59 02/18/17 09:14 Aspirin (Ecotrin) 81 mg DAILY ORAL 02/14/17 09:00 03/16/17 08:59 02/18/17 09:14 Atorvastatin Calcium (Lipitor) 80 mg BEDTIME ORAL 02/13/17 21:00 03/15/17 20:59 02/17/17 20:40 Benazepril HCl (Lotensin) 40 mg DAILY ORAL 02/14/17 09:00 03/16/17 08:59 02/18/17 09:14 Clonidine HCl (Catapres) 0.1 mg Q4H PRN ORAL sbp > 160 02/17/17 20:15 03/19/17 20:14 02/17/17 20:41 Clopidogrel Bisulfate (Plavix) 75 mg DAILY ORAL 02/14/17 09:00 03/16/17 08:59 02/18/17 09:13 Dextrose (Dextrose 50%) STAT PRN IV Hypoglycemia 02/13/17 06:15 03/15/17 06:14 Heparin Sodium (Porcine) (Heparin 5000 units/ml) 5,000 units EVERY 8 HOURS SUBQ 02/13/17 14:00 03/15/17 13:59 02/18/17 13:40 Insulin Aspart (NovoLOG) BEFORE MEALS AND HS SUBQ 02/13/17 06:30 03/15/17 06:29 02/18/17 16:40 Metoprolol Tartrate (Lopressor) 150 mg DAILY ORAL 02/16/17 09:00 03/18/17 08:59 02/18/17 09:14 Nitroglycerin (Ntg) 0.4 mg Q5M PRN SL Prn Chest Pain 02/13/17 06:15 03/15/17 06:14 02/13/17 06:15 Nitroglycerin (Ntg) 1 patch EVERY 8 HOURS TDERMAL 02/13/17 14:00 03/15/17 13:59 02/18/17 13:38 Pantoprazole (Protonix) 40 mg ACBREAKFAST ORAL 02/13/17 09:00 03/15/17 08:59 02/18/17 05:43 RONY CRUZ Feb 18, 2017 19:05
[2017-02-18 19:59] VITALS: BP 155/74
[2017-02-18] MEDS: Atorvastatin 80mg tab ORAL SCH (21:35)
[2017-02-19] VITALS: BP 140/78
[2017-02-19 04:00] VITALS: BP 141/81
[2017-02-19] MEDS: Nitroglycerin Patch 0.4mg TDERMAL SCH ×2 (06:00→06:38)
[2017-02-19] MEDS: NovoLOG Insulin Flexpen SUBQ SCH ×2 (06:30→11:35)
[2017-02-19] MEDS: Heparin 5000 units/ml inj SUBQ SCH ×2 (06:37→14:02)
[2017-02-19 08:00] VITALS: BP 135/69
[2017-02-19 08:14] LABS: BASOPHILS % (AUTO) 0.8 % (0.0-2.0); LYMPHOCYTES % (AUTO) 35.2 % (20.0-45.0); MEAN CORPUSCULAR HEMOGLOBIN 26.4 PG (27.0-31.0); MEAN CORPUSCULAR HGB CONC 32.2 G/DL (32.0-36.0); MEAN CORPUSCULAR VOLUME 82 FL (80-99); MEAN PLATELET VOLUME 6.4 FL (6.5-10.1); MONOCYTES % (AUTO) 5.5 % (1.0-10.0); NEUTROPHILS % (AUTO) 49.5 % (45.0-75.0); PLATELET COUNT 272 K/UL (150-450); RED BLOOD COUNT 4.41 M/UL (4.20-5.40); RED CELL DISTRIBUTION WIDTH 13.6 % (11.6-14.8); WHITE BLOOD COUNT 10.2 K/UL (4.8-10.8)
[2017-02-19 08:37] LABS: ANION GAP 16 (5-15); CALCIUM 9.4 mg/dL (8.6-10.2); CARBON DIOXIDE 24 mEQ/L (20-30); CHLORIDE 98 mEQ/L (98-107); HEMOLYSIS 2; POTASSIUM 4.2 mEQ/L (3.4-4.9); SODIUM 138 mEQ/L (135-145)
[2017-02-19] MEDS: Aspirin EC 81mg tab ORAL SCH (08:43)
[2017-02-19] MEDS: Metoprolol 50mg tab ORAL SCH (08:44)
--- NOTE | 2017-02-19 11:13 | Cardiology Progress Note ---
Assessment/Plan Assessment/Plan 1. Chest pain, lateral wall and anteroseptal wall ischemia on the nuclear stress test consistent with ischemia, refuses to go to [facility] for cardiac cath. [facility] called luis miguel this am, they claimed that they will open a bed for her today. She has been placed on the laboratory cureman list for tomorrow. She is CP free on ASA, plavix, metoprolol and statins. 2. Hx of CAD, s/ PCI at [facility] ~2 years ago. 3. DM 4. HTN Subjective Subjective Sinus rhythm at 73.. Denies chest pain or SOB. Refused to be transferred to [facility] Awaiting transfer to [facility]. Objective Last 24 Hour Vital Signs Date Time Temp Pulse Resp B/P Pulse Ox O2 Delivery O2 Flow Rate FiO2 02/19/17 08:44 65 135/69 02/19/17 08:43 135/69 02/19/17 08:43 65 135/69 02/19/17 08:00 76 02/19/17 08:00 98.1 65 18 135/69 100 Room Air 02/19/17 04:00 71 02/19/17 04:00 97.0 89 18 141/81 100 Room Air 02/19/17 00:00 98.4 65 18 140/78 96 Room Air 02/19/17 00:00 69 02/18/17 21:39 155/74 02/18/17 20:00 66 02/18/17 19:59 97.7 64 20 155/74 98 Room Air 02/18/17 16:00 66 02/18/17 16:00 64 18 131/65 100 Room Air 02/18/17 13:38 149/73 02/18/17 12:00 71 02/18/17 12:00 97.5 65 18 149/73 97 Room Air Intake and Output 02/18/17 02/19/17 19:00 07:00 Intake Total 240 ml Balance 240 ml Intake Oral 240 ml # Voids 3 2D Echo: LVEF 65%, mild LVH, RVSP 15 mmHg, Grade I lVDD Laboratory Tests Test 02/19/17 06:30 White Blood Count 10.2 K/UL (4.8-10.8) Red Blood Count 4.41 M/UL (4.20-5.40) Hemoglobin 11.6 G/DL (12.0-16.0) L Hematocrit 36.2 % (37.0-47.0) L Mean Corpuscular Volume 82 FL (80-99) Mean Corpuscular Hemoglobin 26.4 PG (27.0-31.0) L Mean Corpuscular Hemoglobin Concent 32.2 G/DL (32.0-36.0) Red Cell Distribution Width 13.6 % (11.6-14.8) Platelet Count 272 K/UL (150-450) Mean Platelet Volume 6.4 FL (6.5-10.1) L Neutrophils (%) (Auto) 49.5 % (45.0-75.0) Lymphocytes (%) (Auto) 35.2 % (20.0-45.0) Monocytes (%) (Auto) 5.5 % (1.0-10.0) Eosinophils (%) (Auto) 9.0 % (0.0-3.0) H Basophils (%) (Auto) 0.8 % (0.0-2.0) Sodium Level 138 mEQ/L (135-145) Potassium Level 4.2 mEQ/L (3.4-4.9) Chloride Level 98 mEQ/L (98-107) Carbon Dioxide Level 24 mEQ/L (20-30) Anion Gap 16 (5-15) H Blood Urea Nitrogen 24 mg/dL (7-23) H Creatinine 1.0 mg/dL (0.5-0.9) H Estimat Glomerular Filtration Rate mL/min (>60) Glucose Level 96 mg/dL (74-106) Calcium Level 9.4 mg/dL (8.6-10.2) Objective HEENT: Atraumatic and normocephalic. Anicteric. Pupils are equal, round, and reactive to light and accommodation. Extraocular muscles are intact. NECK: JVP less than 5 cm. No carotid bruit. Carotid upstroke is 2+ bilaterally. CARDIOVASCULAR: Normal S1 and S2. Regular rate and rhythm. No murmurs, gallops, or rubs. PMI is at fourth intercostal space at the midclavicular line. LUNGS: Clear to auscultation bilaterally. ABDOMEN: Soft, nontender, and nondistended. No hepatosplenomegaly. Positive bowel sounds. EXTREMITIES: No evidence of edema, clubbing, or cyanosis. MARTA HARVEY Feb 19, 2017 11:13
[2017-02-19 12:00] VITALS: BP 127/74
--- NOTE | 2017-02-19 16:20 | Pulmonology Progress Note ---
Assessment/Plan Problems: (1) ACS (acute coronary syndrome) (2) Diabetes (3) Hypertension (4) DDD (degenerative disc disease), thoracic Assessment/Plan on waiting list for [facility] pt needs cardiac cath. transfer pending for today continue ASA, Plavix etc f/u cardio recommendations Subjective ROS Limited/Unobtainable: No Allergies: Coded Allergies: AMOXICILLIN (Verified Allergy, Severe, HIVES, 01/01/13) PENICILLINS (Verified Allergy, Severe, HIVES, 01/01/13) STRAWBERRY (Verified Allergy, Intermediate, Hives, 02/13/17) Objective Last 24 Hour Vital Signs Date Time Temp Pulse Resp B/P Pulse Ox O2 Delivery O2 Flow Rate FiO2 02/19/17 12:00 97.9 68 18 127/74 100 Room Air 02/19/17 12:00 74 02/19/17 08:44 65 135/69 02/19/17 08:43 135/69 02/19/17 08:43 65 135/69 02/19/17 08:00 76 02/19/17 08:00 98.1 65 18 135/69 100 Room Air 02/19/17 04:00 71 02/19/17 04:00 97.0 89 18 141/81 100 Room Air 02/19/17 00:00 98.4 65 18 140/78 96 Room Air 02/19/17 00:00 69 02/18/17 21:39 155/74 02/18/17 20:00 66 02/18/17 19:59 97.7 64 20 155/74 98 Room Air Intake and Output 02/18/17 02/19/17 19:00 07:00 Intake Total 240 ml Balance 240 ml Intake Oral 240 ml # Voids 3 Objective General Appearance: WD/WN HEENT: normocephalic, atraumatic Respiratory/Chest: chest wall non-tender, lungs clear Cardiovascular: normal peripheral pulses, normal rate Abdomen: normal bowel sounds, soft, non tender Genitourinary: normal external genitalia Extremities: no cyanosis Skin: no rash Neurologic/Psychiatric: program admin II-XII grossly normal Lymphatic: no neck adenopathy Musculoskeletal: normal muscle bulk Laboratory Tests 02/19/17 06:30: White Blood Count 10.2, Red Blood Count 4.41, Hemoglobin 11.6L, Hematocrit 36.2L , Mean Corpuscular Volume 82, Mean Corpuscular Hemoglobin 26.4L, Mean Corpuscular Hemoglobin Concent 32.2, Red Cell Distribution Width 13.6, Platelet Count 272, Mean Platelet Volume 6.4L, Neutrophils (%) (Auto) 49.5, Lymphocytes ( %) (Auto) 35.2, Monocytes (%) (Auto) 5.5, Eosinophils (%) (Auto) 9.0H, Basophils (%) (Auto) 0.8, Sodium Level 138, Potassium Level 4.2, Chloride Level 98, Carbon Dioxide Level 24, Anion Gap 16H, Blood Urea Nitrogen 24H, Creatinine 1.0H, Estimat Glomerular Filtration Rate , Glucose Level 96, Calcium Level 9.4 RONY CRUZ Feb 19, 2017 16:20
[2017-02-20] MEDS ORDERED: LIPITOR80 MG ORAL (14:35)
--- NOTE | 2017-02-20 14:36 | Discharge Summary ---
Discharge Summary Hospital Course Date of Admission Feb 13, 2017 at 02:47 Date of Discharge Feb 19, 2017 at 14:30 Admitting Diagnosis HPI Paula Garcia is a 77 year old female who was admitted on Feb 13, 2017 at 02:47 for Chest Pain Hospital Course dc summary #[id number] Discharge Medications New Medications: Atorvastatin (Lipitor) 80 Mg Tablet 80 MG ORAL BEDTIME, #30 TAB 0 Refills Continued Medications: Amlodipine Besylate (Norvasc) 10 Mg Tab 10 MG ORAL DAILY Aspirin* (Aspir 81*) 81 Mg Tablet.dr 81 MG ORAL DAILY, TAB Clopidogrel Bisulfate* (Plavix*) 75 Mg Tablet 75 MG ORAL DAILY, #10 TAB Discharge Discharge Disposition Patient was discharged to [facility] Care [facility] for cardiac cath Discharge Diagnoses: Discharge Instructions Discharge Instructions Special Instructions I have been assigned to complete a D/C Summary on this account. I was not involved in the patient management Asmita John NP (Vanchtein) Feb 20, 2017 14:36
--- NOTE | 2017-02-21 05:45 | Discharge Summary 2 SIG ---
DATE OF ADMISSION: 02/13/2017 DATE OF DISCHARGE: 02/19/2017 REASON FOR ADMISSION: This is a 77-year-old female, presented to the emergency room with complaint of chest pain. The patient reported chest pain as substernal radiating to the left side of the chest as well as the back. Pain lasted about 15 to 20 minutes. The patient denied nausea, vomiting, or diaphoresis. The patient initially was transported via internal specialist to [facility] Emergency Room. All initial troponin levels were negative and the patient was transferred to [facility] secondary to insurance purposes. The patient was admitted for chest pain to rule out acute coronary syndrome. ADMITTING DIAGNOSIS: Includes chest pain, rule out acute coronary syndrome. HOSPITAL STAY: The patient admitted to telemetry floor. Cardiology consult was requested. Serial troponins were negative. EKG shows no acute ischemic changes. ProBNP was negative. Echocardiogram revealed ejection fraction of 65% and right ventricular systolic pressure of 15. Lipid panel revealed elevated LDL of 148 and total cholesterol of 209. Subsequently, stress test was ordered since the patient has a history of coronary artery disease and percutaneous coronary intervention done in [facility] two years ago. Stress test done in [facility] revealed lateral and anteroseptal wall ischemia consistent with ischemia. The patient refused to go to [facility] for cardiac catheterization. The patient was placed in [facility] waiting list . The bed became available on 02/19/2017 when the patient was transferred via [facility] ambulance to [facility] for cardiac catheterization. Meantime while waiting for a bed, the patient was continued on aspirin and Plavix. Rn Telemetry was closely followed. Rn Telemetry increased dose of Lipitor to maximum dose of 80 mg to achieve target of LDL for this patient below 70. Blood pressure was managed with calcium channel danny and was stable. Blood sugar was managed with sliding scale of insulin and remained stable. DVT and GI prophylaxes were provided. When bed became available, the patient was transferred via [facility]S ambulance for further intervention. Per adolescent medicine specialist, the patient was ruled out for acute GA per protocol; however, the patient does have unstable angina and need further cardiac intervention. DISCHARGE DIAGNOSES: Include: 1. Coronary artery disease with unstable angina. 2. History of coronary artery disease with status post percutaneous coronary intervention two years ago. 3. Hypertension. 4. Hypercholesterolemia. 5. Diabetes mellitus. DISCHARGE INSTRUCTIONS: The patient was transferred via [facility] ambulance to [facility] for cardiac catheterization. FOLLOWUP: Follow up with medical doctor at the hospital. DISCHARGE MEDICATIONS: See medication reconciliation list. Candelario Guzman M.D. I have been assigned to dictate discharge summary on this account and I was not involved in the patient's management. Asmita John (vanchtein) NUma DR: AVI JOB#: [id number] CC:
== END 2017-02-19 14:30 | DRG 303 ==
LOC: 2E 02:47
DX: I25.110 Atherosclerotic heart disease of native coronary artery with unstable angina pectoris (principal); E11.9 Type 2 diabetes mellitus without complications; I10 Essential (primary) hypertension; E78.00 Pure hypercholesterolemia, unspecified; I25.2 Old myocardial infarction; Z88.1 Allergy status to other antibiotic agents; Z88.0 Allergy status to penicillin; M51.34 Other intervertebral disc degeneration, thoracic region; Z95.5 Presence of coronary angioplasty implant and graft
CPT/HCPCS: 36415; 71010; 78451; 80048; 80053; 80061; 82962; 83735; 83880; 84100; 84484; 85025; 87081; 93005; 93017; 93306; 94760; J1815

== ENCOUNTER 2017-02-24 08:27 | Inpatient (IN) | payer MEDICARE, MEDICAID ==
[~2017-02-24] VITALS: Ht 152.4 cm; Wt 68.9 kg
[~2017-02-24 08:27] MED LIST changes: +LIPITOR80 MG ORAL; +UNOBMED
[2017-02-24 13:20] VITALS: BP 153/76
[2017-02-24] MEDS ORDERED: Milk of Magnesia 30ml Ud ORAL PRN (14:30)
[2017-02-24] MEDS ORDERED: Miralax 17gm pkt ORAL PRN (14:30)
[2017-02-24] MEDS ORDERED: Zolpidem 5mg tab ORAL PRN (14:30)
[2017-02-24] MEDS ORDERED: Nitroglycerin Subl 0.4mg tab (Bottle Of 25) SL PRN (14:30)
[2017-02-24] MEDS ORDERED: DuoNeb 0.5-3(2.5)mg/3ml neb HHN PRN (14:30)
[2017-02-24] MEDS ORDERED: Mylanta II UD 30ml ORAL PRN (14:30)
--- NOTE | 2017-02-24 14:41 | Consultation ---
History of Present Illness General Date patient seen: Feb 24, 2017 Time patient seen: 14:15 Chief Complaint: chest pain Referring physician: dr Guzman Reason for Consultation: inpatient management Present Illness HPI 77 y/old female was transferred from [place] where she initially came for evaluation of chest pain for insurance purposes patient with chronic back pain, reported radiation of back pain to chest pain no SOB, no exertional dyspnea, no palpitations, no dizziness CXR in [place] negative laboratory work stable minimal elevation in troponin noted patient was transferred to [facility] for further management patient recently had cardiac workup in [facility] and found to have ischemic stress test and was transferred to [facility] for cardiac cath she undergone stress test in [facility] and found to have multiple vessel disease she was recommended to have CABG but at that time she declined patient was admitted to [place] upon transfer from [place] for chest pain, r/o ACS Allergies: Coded Allergies: AMOXICILLIN (Verified Allergy, Severe, HIVES, 01/01/13) PENICILLINS (Verified Allergy, Severe, HIVES, 01/01/13) STRAWBERRY (Verified Allergy, Intermediate, Hives, 02/13/17) Medication History Scheduled Amlodipine Besylate (Norvasc), 10 MG ORAL DAILY, (Reported) Aspirin* (Aspir 81*), 81 MG ORAL DAILY, (Reported) Atorvastatin (Lipitor), 80 MG ORAL BEDTIME Atorvastatin Calcium* (Atorvastatin Calcium*), 20 MG ORAL BEDTIME, (Reported) Benazepril Hcl* (Benazepril Hcl*), 40 MG ORAL DAILY, (Reported) Ciprofloxacin Hcl* (Ciprofloxacin Hcl*), 500 MG ORAL Q12H Clopidogrel Bisulfate* (Plavix*), 75 MG ORAL DAILY, (Reported) Docusate Sodium* (Colace*), 100 MG ORAL TWICE A DAY Fluticasone/Salmeterol (Advair 100-50 Diskus), 1 PUFF INH BID, (Reported) Metoprolol Tartrate* (Metoprolol Tartrate*), 100 MG ORAL DAILY, (Reported) Metronidazole* (Flagyl*), 500 MG ORAL TID, (Reported) Nitrofurantoin Monohyd/M-Cryst (Nitrofurantoin Upton-Mcr 100 mg), 100 MG ORAL Q12H Scheduled PRN Hydrocodone Bit/Acetaminophen 5-325* (Searcy 5-325*), 1 TAB ORAL Q6H PRN for For Pain, (Reported) Hydrocodone Bit/Acetaminophen 5-325* (Searcy 5-325*), 1 TAB ORAL Q6H PRN for For Pain Miscellaneous Medications Unable to Obtain Medications (Unable To Obtain Meds), (Reported) Patient History Healthcare decision maker Resuscitation status Advanced Directive on File Past Medical/Surgical History Past Medical/Surgical History: (1) Constipation (2) Diabetes (3) Hypertension (4) Bronchitis (5) COPD exacerbation (6) HTN (hypertension) (7) Hypercholesterolemia (8) Coronary artery disease (9) DDD (degenerative disc disease), thoracic Review of Systems Constitutional: Reports: no symptoms Eye: Reports: no symptoms ENT: Reports: no symptoms Respiratory: Reports: no symptoms Cardiovascular: Reports: other - HTN, CHF Gastrointestinal: Reports: constipation Genitourinary: Reports: frequency Musculoskeletal: Reports: back pain - chronic Skin: Reports: no symptoms Psychiatric: Reports: no symptoms Neurological: Reports: other - hx of CVA with R side weakness Endocrine: Reports: other - diabetes Physical Exam General Appearance: WD/WN, alert - A/A/O x 3 Lines, tubes and drains: peripheral HEENT: normocephalic, atraumatic, anicteric, mucous membranes moist Neck: non-tender, supple Respiratory/Chest: lungs clear, no respiratory distress, no accessory muscle use Cardiovascular/Chest: normal rate, regular rhythm, no JVD Abdomen: normal bowel sounds, non tender, soft Extremities: normal range of motion, non-tender, no calf tenderness, normal capillary refill Neurologic: alert, oriented x 3, responsive, other - RSW more pronounced in RLE than RUE Musculoskeletal: normal muscle bulk Last 24 Hour Vital Signs Date Time Temp Pulse Resp B/P Pulse Ox O2 Delivery O2 Flow Rate FiO2 02/24/17 13:20 97.7 70 18 153/76 98 Room Air 02/24/17 12:41 84 Assessment/Plan Assessment/Plan ASSESSMENT chest pain r/o ACS CAD with multivessel disease HTN DM PLAN OF CARE tele serial troponin repeat ECG ECHO done earlier this month with preserved EF cardio eval re start ASA and Plavix from home pain management with Morphine and Nitro prn check lipid panel, continue statin BP management with BB and YUMIKO BS management with SS of insulin O2 HHN prn case discussed and evaluated by supervising physician Asmita John NP (Vanchtein) Feb 24, 2017 14:41
--- NOTE | 2017-02-24 15:40 | History & Physical ---
History and Physical History & Physicial Dictated for Int Med-Dr Guzman no. [id number]. RICHARD MONTERO Feb 24, 2017 15:40
--- NOTE | 2017-02-24 15:46 | Diagnostic Imaging Report ---
Indications: Chest pain Technique: Portable AP chest Findings: Comparison: 02/13/2017 Cardiac silhouette remains normal in size. Pulmonary vasculature remains within normal limits. Lungs and pleura remain clear. Elongation/ectasia of the thoracic aorta again noted.. IMPRESSION: No evidence of acute disease, unchanged Stable chronic changes as described
[2017-02-24 15:49] LABS: TROPONIN I < 0.30 ng/mL (<=0.30)
[2017-02-24 16:00] VITALS: BP 143/73
[2017-02-24] MEDS: Morphine Sulfate 2mg/ml Inj IVP PRN ×2 (16:20→21:56)
[2017-02-24] MEDS: NovoLOG Insulin Flexpen SUBQ SCH ×2 (18:17→21:19)
--- NOTE | 2017-02-24 20:45 | History and Physical Report ---
DATE OF ADMISSION: 02/24/2017 CHIEF COMPLAINT: The patient is a 77-year-old female, who presents with a chief complaint of upper back pain and chest pain. HISTORY OF PRESENT ILLNESS: The patient was admitted to [facility] from 02/13/2017 to 02/19/2017. The patient was transferred to [facility] for cardiac catheterization. The patient was followed at [facility] by Dr. Edward Neri. The patient states that she began to experience back pain yesterday, 02/23/2017. Back pain then began to radiate towards her chest. The patient now complains of left-sided chest pain. The patient initially presented to [facility] emergency room. The patient was transferred to [facility] for insurance purposes. The patient presents today for chest pain to rule out acute coronary syndrome. PAST MEDICAL HISTORY: Significant for, 1. Hypertension. 2. Hypercholesterolemia. 3. History of previous possible myocardial infarction. PAST SURGICAL HISTORY: The patient denies. CURRENT MEDICATIONS: 1. Amlodipine 10 mg one tablet p.o. daily. 2. Aspirin 81 mg one tablet p.o. daily. 3. Lipitor 80 mg one tablet p.o. at bedtime. 4. Benazepril 40 mg one tablet p.o. daily. 5. Plavix 75 mg one tablet p.o. daily. 6. Advair 100/50, one puff p.o. twice daily. 7. [place] 5/325 mg one tablet p.o. q.6 hours p.r.n. 8. Metoprolol 100 mg one tablet p.o. daily. ALLERGIES: Penicillin. SOCIAL HISTORY: The patient is and lives with her son and her granddaughter. The patient admits to tobacco use of one-half pack per day. The patient denies alcohol use. REVIEW OF SYSTEMS: Constitutional: The patient denies weight loss or weight gain. The patient denies fevers or chills. HEENT: The patient denies ear or throat pain. Cardiovascular: The patient denies palpitations or chest pain. Chest: The patient denies wheeze or shortness of breath. The patient complains of chest pain as above. The patient denies palpitations. Abdomen: The patient denies nausea, vomiting, diarrhea, or constipation. Genitourinary: The patient denies dysuria or increased frequency of urination. Neuromuscular: The patient denies seizures or generalized weakness. PHYSICAL EXAMINATION: VITAL SIGNS: Temperature 97.7 degrees, respirations 18, pulse 70, and blood pressure 150/76. GENERAL: The patient is well-developed and well-nourished slightly obese, female, in no apparent distress. HEENT: Eyes, pupils are equal and responsive to light and accommodation. Extraocular movements are intact. NECK: Supple without lymphadenopathy. CHEST: Lungs are clear to auscultation bilaterally without wheezes or rales. CARDIOVASCULAR: Regular rate. S1 and S2 are normal without murmurs, rubs, or gallops. ABDOMEN: Soft, nontender, and nondistended. Positive bowel sounds. No evidence of hepatosplenomegaly. Currently, no rebound or guarding noted. EXTREMITIES: Negative for clubbing, cyanosis, or edema. RECTAL/GENITAL: Refused. NEUROLOGIC: Cranial nerves II to XII are grossly intact without focal deficits. Motor strength is 5/5 bilaterally. Deep tendon reflexes 2+ plantar. LABORATORY STUDIES: Sodium 137, potassium 4.0, chloride 106, CO2 22, BUN 21, creatinine 1.01, and glucose 192. WBC 10.0, hemoglobin 11.6, hematocrit 34.8, and platelets 261,000. An EKG demonstrated normal sinus rhythm at approximately 80 beats per minute. There are no acute ST changes or Q-waves noted. ASSESSMENT: This is 77-year-old, female. 1. Chest pain. 2. Back pain. 3. Hypertension. 4. Hypercholesterolemia. 5. Hyperglycemia. TREATMENT: 1. Back pain/chest pain. A Cardiology consultation was obtained with Dr. Edward Neri. We will follow recommendations of Cardiology. Serial troponin levels will be performed. 2. Hypertension. Continue metoprolol and benazepril as above. Continue amlodipine as above. 3. Hypercholesterolemia. Continue Lipitor as above. 4. Diabetes type 2. The patient does not have a history of diabetes. The patient has been started empirically on NovoLog sliding scale. Junior Quiles M.D. DR: LINDA JOB#: [id number] CC:
[2017-02-24] MEDS: Atorvastatin 80mg tab ORAL SCH (21:05)
[2017-02-24] MEDS: Heparin 5000 units/ml inj SUBQ SCH (21:18)
[2017-02-24 23:57] VITALS: BP 156/82
[2017-02-25 04:00] VITALS: BP 150/84
[2017-02-25] MEDS: NovoLOG Insulin Flexpen SUBQ SCH ×4 (06:30→21:07)
[2017-02-25 06:40] LABS: BASOPHILS % (AUTO) 1.3 % (0.0-2.0); EOSINOPHILS % (AUTO) 10.4 % (0.0-3.0); LYMPHOCYTES % (AUTO) 31.8 % (20.0-45.0); MEAN CORPUSCULAR HGB CONC 33.3 G/DL (32.0-36.0); MEAN CORPUSCULAR VOLUME 84 FL (80-99); MEAN PLATELET VOLUME 6.8 FL (6.5-10.1); MONOCYTES % (AUTO) 6.1 % (1.0-10.0); NEUTROPHILS % (AUTO) 50.4 % (45.0-75.0); PLATELET COUNT 225 K/UL (150-450); RED BLOOD COUNT 4.08 M/UL (4.20-5.40); RED CELL DISTRIBUTION WIDTH 13.4 % (11.6-14.8); WHITE BLOOD COUNT 9.3 K/UL (4.8-10.8)
[2017-02-25 07:13] LABS: TROPONIN I < 0.30 ng/mL (<=0.30)
[2017-02-25 07:21] LABS: THYROID STIMULATING HORMONE 1.67 uIU/mL (0.300-4.500)
[2017-02-25 08:00] VITALS: BP 142/80
[2017-02-25] MEDS: Aspirin EC 81mg tab ORAL SCH (08:32)
[2017-02-25] MEDS: Heparin 5000 units/ml inj SUBQ SCH ×2 (08:34→21:06)
[2017-02-25] MEDS ORDERED: Aspirin Baby 81mg ORAL SCH (09:00)
[2017-02-25] MEDS: Morphine Sulfate 2mg/ml Inj IVP PRN (09:34)
[2017-02-25 12:00] VITALS: BP 154/84
--- NOTE | 2017-02-25 12:07 | Internal Med Progress Note ---
Subjective Date of Service: Feb 25, 2017 Physician Name Richard Montero Attending Physician Candelario Guzman MD Current Medications Medications (Trade) Dose Ordered Sig/Tasia Route PRN Reason Start Time Stop Time Status Last Admin Dose Admin Acetaminophen (Tylenol) 650 mg Q4H PRN ORAL Mild Pain (Pain Scale 1-3) 02/24/17 14:30 03/26/17 14:29 02/24/17 18:15 Al Hydroxide/Mg Hydroxide (Mylanta II) 30 ml Q6H PRN ORAL dyspepsia 02/24/17 14:30 03/26/17 14:29 Albuterol/ Ipratropium (DuoNeb 0.5-3(2.5)mg/3ml) 3 ml Q4H PRN HHN Shortness of Breath 02/24/17 14:30 03/01/17 14:29 Aspirin (Ecotrin) 81 mg DAILY ORAL 02/25/17 09:00 03/27/17 08:59 02/25/17 08:32 Atorvastatin Calcium (Lipitor) 80 mg BEDTIME ORAL 02/24/17 21:00 03/26/17 20:59 02/24/17 21:05 Benazepril HCl (Lotensin) 40 mg DAILY ORAL 02/25/17 09:00 03/27/17 08:59 02/25/17 08:32 Clopidogrel Bisulfate (Plavix) 75 mg DAILY ORAL 02/25/17 09:00 03/27/17 08:59 02/25/17 08:32 Dextrose (Dextrose 50%) STAT PRN IV Hypoglycemia 02/24/17 14:30 03/26/17 14:29 Heparin Sodium (Porcine) (Heparin 5000 units/ml) 5,000 units EVERY 12 HOURS SUBQ 02/24/17 21:00 03/26/17 20:59 02/25/17 08:34 Insulin Aspart (NovoLOG) BEFORE MEALS AND HS SUBQ 02/24/17 16:30 03/26/17 16:29 02/24/17 21:19 Magnesium Hydroxide (Mom) 30 ml HSPRN PRN ORAL Constipation 02/24/17 14:30 03/26/17 14:29 Metoprolol Tartrate (Lopressor) 100 mg DAILY ORAL 02/25/17 09:00 03/27/17 08:59 02/25/17 08:32 Morphine Sulfate (Morphine Sulfate) 1 mg Q4H PRN IVP For Pain 02/24/17 14:30 03/03/17 14:29 02/25/17 09:34 Nitroglycerin (Ntg) 0.4 mg Every 5 Minutes PRN SL Prn Chest Pain 02/24/17 14:30 03/26/17 14:29 Ondansetron HCl (Zofran) 4 mg Q6H PRN IVP Nausea & Vomiting 02/24/17 14:30 03/26/17 14:29 Polyethylene Glycol (Miralax) 17 gm DAILYPRN PRN ORAL Constipation 02/24/17 14:30 03/26/17 14:29 Ranitidine HCl (Zantac) 150 mg TWICE A DAY ORAL 02/24/17 18:00 03/26/17 17:59 02/25/17 08:32 Zolpidem Tartrate (Ambien) 5 mg HSPRN PRN ORAL Insomnia 02/24/17 14:30 03/26/17 14:29 Allergies: Coded Allergies: AMOXICILLIN (Verified Allergy, Severe, HIVES, 01/01/13) PENICILLINS (Verified Allergy, Severe, HIVES, 01/01/13) STRAWBERRY (Verified Allergy, Intermediate, Hives, 02/13/17) ROS Limited/Unobtainable: No Constitutional: Reports: no symptoms HEENT: Reports: no symptoms Cardiovascular: Reports: chest pain Respiratory: Reports: no symptoms Gastrointestinal/Abdominal: Reports: no symptoms Genitourinary: Reports: no symptoms Neurologic/Psychiatric: Reports: no symptoms Subjective 77 YO F admitted with chest pain. Cover for Int Martin-Dr Guzman.. Objective Last Vital Signs Date Time Temp Pulse Resp B/P Pulse Ox O2 Delivery O2 Flow Rate FiO2 02/25/17 08:32 74 142/80 02/25/17 08:00 97.7 18 100 Room Air Laboratory Tests Test 02/24/17 15:15 02/25/17 04:40 Troponin I < 0.30 ng/mL (<=0.30) < 0.30 ng/mL (<=0.30) White Blood Count 9.3 K/UL (4.8-10.8) Red Blood Count 4.08 M/UL (4.20-5.40) L Hemoglobin 11.4 G/DL (12.0-16.0) L Hematocrit 34.3 % (37.0-47.0) L Mean Corpuscular Volume 84 FL (80-99) Mean Corpuscular Hemoglobin 28.0 PG (27.0-31.0) Mean Corpuscular Hemoglobin Concent 33.3 G/DL (32.0-36.0) Red Cell Distribution Width 13.4 % (11.6-14.8) Platelet Count 225 K/UL (150-450) Mean Platelet Volume 6.8 FL (6.5-10.1) Neutrophils (%) (Auto) 50.4 % (45.0-75.0) Lymphocytes (%) (Auto) 31.8 % (20.0-45.0) Monocytes (%) (Auto) 6.1 % (1.0-10.0) Eosinophils (%) (Auto) 10.4 % (0.0-3.0) H Basophils (%) (Auto) 1.3 % (0.0-2.0) Hemoglobin A1c 7.0 % (< 6.0) H Triglycerides Level 62 mg/dL (< 150) Cholesterol Level 178 mg/dL (< 200) LDL Cholesterol 121 mg/dL (60-99) H HDL Cholesterol 45 mg/dL (> 60) Cholesterol/HDL Ratio 4.0 (3.3-4.4) Thyroid Stimulating Hormone (TSH) 1.670 uIU/mL (0.300-4.500) Intake and Output 02/24/17 02/25/17 19:00 07:00 Intake Total 300 ml 200 ml Balance 300 ml 200 ml Intake Oral 300 ml 200 ml # Voids 2 1 Objective General: alert, cooperative, no distress, appears stated age Head: normocephalic, without obvious abnormality, atraumatic Eyes: conjunctivae/corneas clear. PERRL, EOM's intact Throat: lips, mucosa, and tongue normal. MMM Neck: supple, symmetrical, trachea midline, and no JVD Lungs: clear to auscultation bilaterally Heart: regular rate and rhythm, S1, S2 normal, no murmur, click, rub or gallop Abdomen: soft, non-tender, non-distended, bowel sounds normal; no masses or organomegaly Extremities: extremities normal, atraumatic, no cyanosis or edema Pulses: 2+ and symmetric Skin: skin color, texture, turgor normal; no rashes or lesions Neurologic: grossly normal, no focal deficits Assessment/Plan Problem List: (1) Thoracic back pain (2) Coronary artery disease Assessment & Plan: Patient refused coronary bypass graft at [facility]. (3) Chest pain (4) Hypertension Assessment & Plan: Cont lopressor and lotensin (5) Diabetes Assessment & Plan: Cont novolog sliding scale. (6) Hypercholesteremia Assessment & Plan: Cont lipitor. (7) Thoracic radiculopathy Status: not improved RICHARD MONTERO Feb 25, 2017 12:07
--- NOTE | 2017-02-25 12:48 | Pulmonology Progress Note ---
Assessment/Plan Assessment/Plan ASSESSMENT chest pain r/o ACS CAD with multivessel disease HTN DM PLAN OF CARE tele serial troponin negative, ECG no acute ischemic changes, therefore ruled out for acute [place] ECHO done earlier this month , with preserved EF cardio eval on ASA and Plavix pain management with Morphine and Nitro prn lipid panel stable, continue statin BP management with BB and YUMIKO, optimize as needed BS management with SS of insulin O2 HHN prn I had a long discussion with the patient re the need for CABG patient is scared she wants surgery but needs reassurance and explanation from technology services manager case discussed and evaluated by supervising physician Subjective Allergies: Coded Allergies: AMOXICILLIN (Verified Allergy, Severe, HIVES, 01/01/13) PENICILLINS (Verified Allergy, Severe, HIVES, 01/01/13) STRAWBERRY (Verified Allergy, Intermediate, Hives, 02/13/17) Subjective denies chest pain, SOB aware that she needs CABG , afraid to do it Objective Last 24 Hour Vital Signs Date Time Temp Pulse Resp B/P Pulse Ox O2 Delivery O2 Flow Rate FiO2 02/25/17 12:00 98.8 74 18 154/84 100 Room Air 02/25/17 08:32 74 142/80 02/25/17 08:32 142/80 02/25/17 08:00 76 02/25/17 08:00 97.7 74 18 142/80 100 Room Air 02/25/17 04:16 98 12 Room Air 02/25/17 04:00 98.0 76 17 150/84 98 Room Air 02/25/17 04:00 76 02/25/17 00:00 71 02/24/17 23:57 97.3 75 20 156/82 100 Room Air 02/24/17 20:00 76 02/24/17 19:14 97.3 02/24/17 16:50 97.7 02/24/17 16:00 96.4 76 18 143/73 100 Room Air 02/24/17 16:00 81 02/24/17 13:20 97.7 70 18 153/76 98 Room Air Intake and Output 02/24/17 02/25/17 19:00 07:00 Intake Total 300 ml 200 ml Balance 300 ml 200 ml Intake Oral 300 ml 200 ml # Voids 2 1 Objective General Appearance: WD/WN, alert - A/A/O x 3 Lines, tubes and drains: peripheral HEENT: normocephalic, atraumatic, anicteric, mucous membranes moist Neck: non-tender, supple Respiratory/Chest: lungs clear, no respiratory distress, no accessory muscle use Cardiovascular/Chest: normal rate, regular rhythm, no JVD Abdomen: normal bowel sounds, non tender, soft Extremities: normal range of motion, non-tender, no calf tenderness, normal capillary refill Neurologic: alert, oriented x 3, responsive, other - RSW more pronounced in RLE than RUE Musculoskeletal: normal muscle bulk Laboratory Tests 02/24/17 15:15: Troponin I < 0.30 02/25/17 04:40: Troponin I < 0.30, White Blood Count 9.3, Red Blood Count 4.08L, Hemoglobin 11.4L, Hematocrit 34.3L, Mean Corpuscular Volume 84, Mean Corpuscular Hemoglobin 28.0, Mean Corpuscular Hemoglobin Concent 33.3, Red Cell Distribution Width 13.4, Platelet Count 225, Mean Platelet Volume 6.8, Neutrophils (%) (Auto) 50.4, Lymphocytes (%) (Auto) 31.8, Monocytes (%) (Auto) 6.1, Eosinophils (%) (Auto) 10.4H, Basophils (%) (Auto) 1.3, Hemoglobin A1c 7.0H , Triglycerides Level 62, Cholesterol Level 178, LDL Cholesterol 121H, HDL Cholesterol 45, Cholesterol/HDL Ratio 4.0, Thyroid Stimulating Hormone (TSH) 1.670 Current Medications Medications (Trade) Dose Ordered Sig/Tasia Route PRN Reason Start Time Stop Time Status Last Admin Dose Admin Acetaminophen (Tylenol) 650 mg Q4H PRN ORAL Mild Pain (Pain Scale 1-3) 02/24/17 14:30 03/26/17 14:29 02/24/17 18:15 Al Hydroxide/Mg Hydroxide (Mylanta II) 30 ml Q6H PRN ORAL dyspepsia 02/24/17 14:30 03/26/17 14:29 Albuterol/ Ipratropium (DuoNeb 0.5-3(2.5)mg/3ml) 3 ml Q4H PRN HHN Shortness of Breath 02/24/17 14:30 03/01/17 14:29 Aspirin (Ecotrin) 81 mg DAILY ORAL 02/25/17 09:00 03/27/17 08:59 02/25/17 08:32 Atorvastatin Calcium (Lipitor) 80 mg BEDTIME ORAL 02/24/17 21:00 03/26/17 20:59 02/24/17 21:05 Benazepril HCl (Lotensin) 40 mg DAILY ORAL 02/25/17 09:00 03/27/17 08:59 02/25/17 08:32 Clopidogrel Bisulfate (Plavix) 75 mg DAILY ORAL 02/25/17 09:00 03/27/17 08:59 02/25/17 08:32 Dextrose (Dextrose 50%) STAT PRN IV Hypoglycemia 02/24/17 14:30 03/26/17 14:29 Heparin Sodium (Porcine) (Heparin 5000 units/ml) 5,000 units EVERY 12 HOURS SUBQ 02/24/17 21:00 03/26/17 20:59 02/25/17 08:34 Insulin Aspart (NovoLOG) BEFORE MEALS AND HS SUBQ 02/24/17 16:30 03/26/17 16:29 02/25/17 12:17 Magnesium Hydroxide (Mom) 30 ml HSPRN PRN ORAL Constipation 02/24/17 14:30 03/26/17 14:29 Metoprolol Tartrate (Lopressor) 100 mg DAILY ORAL 02/25/17 09:00 03/27/17 08:59 02/25/17 08:32 Morphine Sulfate (Morphine Sulfate) 1 mg Q4H PRN IVP For Pain 02/24/17 14:30 03/03/17 14:29 02/25/17 09:34 Nitroglycerin (Ntg) 0.4 mg Every 5 Minutes PRN SL Prn Chest Pain 02/24/17 14:30 03/26/17 14:29 Ondansetron HCl (Zofran) 4 mg Q6H PRN IVP Nausea & Vomiting 02/24/17 14:30 03/26/17 14:29 Polyethylene Glycol (Miralax) 17 gm DAILYPRN PRN ORAL Constipation 02/24/17 14:30 03/26/17 14:29 Ranitidine HCl (Zantac) 150 mg TWICE A DAY ORAL 02/24/17 18:00 03/26/17 17:59 02/25/17 08:32 Zolpidem Tartrate (Ambien) 5 mg HSPRN PRN ORAL Insomnia 02/24/17 14:30 03/26/17 14:29 Alvaro (Jatinmerary),Asmita BORUNE Feb 25, 2017 12:48
[2017-02-25 13:06] LABS: ANION GAP 17 (5-15); CARBON DIOXIDE 22 mEQ/L (20-30); CHLORIDE 102 mEQ/L (98-107); CREATININE 0.9 mg/dL (0.5-0.9); HEMOLYSIS 1; SODIUM 141 mEQ/L (135-145)
[2017-02-25 16:00] VITALS: BP 146/83
[2017-02-25 20:00] VITALS: BP 140/88
[2017-02-25] MEDS: Atorvastatin 80mg tab ORAL SCH (21:05)
--- NOTE | 2017-02-25 22:08 | Consultation ---
Consult Note Consult Note Cardiology for Dr. Soliman full consult dictated #[id number] TANGELA ANGEL Feb 25, 2017 22:08
--- NOTE | 2017-02-25 23:00 | Consultation ---
DATE OF CONSULTATION: REQUESTING PHYSICIAN: Candelario Guzman M.D. This is being done as coverage for Dr. Soliman. REASON FOR CONSULT: Chest pain. HISTORY OF PRESENT ILLNESS: The patient is a 77-year-old woman who was admitted with upper back pain and chest pain. She was recently hospitalized from 02/13/2017 through 02/19/[address] [facility]. She was subsequently transferred to [facility] for coronary angiography. She has similar complaints of chest pain and upper back pain during that admission and mildly elevated troponin. Coronary angiography showed three vessel coronary disease with an 80% proximal left anterior descending, 90% circumflex after the first obtuse marginal and an 80% in-stent restenosis of a previously stented right coronary artery. Coronary artery bypass surgery was recommended, but declined by the patient. She was discharged on medical therapy. She has been now readmitted with chest pain and back pain concerning for unstable angina. She has a history of diabetes and hypertension as well. PAST MEDICAL HISTORY: As noted above, coronary artery disease as noted above with previous right coronary stent and recent coronary angiography with three vessel coronary artery disease, history of hypertension and history of hypercholesterolemia. MEDICATIONS: Aspirin 81 mg daily, benazepril 40 mg daily, clopidogrel 75 mg daily, metoprolol 100 mg daily, atorvastatin 80 mg at bedtime, Zantac 150 mg twice daily, insulin sliding scale, DuoNeb nebulizer q.4 h. p.r.n., nitroglycerin sublingual p.r.n., Tylenol p.r.n., morphine p.r.n., and Ambien 5 mg at bedtime p.r.n. ALLERGIES: Penicillins. SOCIAL HISTORY: The patient smokes one-half pack per day. No history of alcohol abuse. PHYSICAL EXAMINATION: GENERAL: Alert, well-developed female, in no acute distress. VITAL SIGNS: Blood pressure is 146/83, pulse 70 and regular, respirations 18, and afebrile. HEENT: Normocephalic and atraumatic. Pupils are equal, round, and reactive to light. Sclerae anicteric. NECK: Supple. No jugular venous distention. Carotid pulses 2+ without bruits. LUNGS: Clear to auscultation bilaterally. HEART: Regular rate and rhythm S1 and S2. No murmurs, rubs, S3, or S4. ABDOMEN: Soft and nontender. No palpable mass. EXTREMITIES: No cyanosis, clubbing, or edema. LABORATORY AND DIAGNOSTIC DATA: Hemoglobin 11.4, white blood count 9300, and platelets 225,000. Potassium 4.0, BUN 17 and creatinine 0.9. Troponin less than 0.3. LDL 121, total cholesterol 178, and HDL 45. EKG shows normal sinus rhythm at a rate of 82 beats per minute, axis +30 degrees, left atrial enlargement. No ST-segment changes. Nonspecific T-wave changes. ASSESSMENT AND RECOMMENDATIONS: The patient is a 77-year-old woman with hypertension, hypercholesterolemia and type 2 diabetes, who has coronary artery disease with recent hospitalization with angina and coronary angiography at that time showing three vessel coronary artery disease. She is now readmitted with similar complaints. She has ruled out for myocardial infarction with negative troponins and negative EKG. She is on appropriate medical therapy with antiplatelet agents, beta blockers and statins. Blood pressure control is not optimal. We will add Norvasc, as she is already on maximal doses of metoprolol and benazepril. Consideration will be given to transfer for coronary artery bypass graft surgery if the patient is agreeable. She previously requested discharge to consider the option of surgery, as the patient is not having chest pain currently. She previously declined surgery during the hospitalization, but was to consider readmission for coronary artery bypass graft surgery. If she has further chest pain, then intravenous heparin will be started. Dorothy Padgett M.D. DR: JOHNNIE JOB#: [id number] CC: Dorothy Padgett M.D.
[2017-02-26] VITALS: BP 150/69
[2017-02-26 04:00] VITALS: BP 138/65
[2017-02-26] MEDS: NovoLOG Insulin Flexpen SUBQ SCH ×4 (06:30→20:28)
[2017-02-26 07:08] LABS: ANION GAP 11 (5-15); CALCIUM 9.1 mg/dL (8.6-10.2); CARBON DIOXIDE 25 mEQ/L (20-30); CHLORIDE 103 mEQ/L (98-107); CREATININE 0.9 mg/dL (0.5-0.9); HEMOLYSIS 9; POTASSIUM 4.2 mEQ/L (3.4-4.9); SODIUM 139 mEQ/L (135-145)
[2017-02-26 07:16] LABS: TROPONIN I < 0.30 ng/mL (<=0.30)
[2017-02-26 07:22] LABS: BASOPHILS % (AUTO) 1.6 % (0.0-2.0); EOSINOPHILS % (AUTO) 10.8 % (0.0-3.0); LYMPHOCYTES % (AUTO) 36.4 % (20.0-45.0); MEAN CORPUSCULAR HEMOGLOBIN 27.1 PG (27.0-31.0); MEAN CORPUSCULAR HGB CONC 32.2 G/DL (32.0-36.0); MEAN CORPUSCULAR VOLUME 84 FL (80-99); MEAN PLATELET VOLUME 6.4 FL (6.5-10.1); MONOCYTES % (AUTO) 5.7 % (1.0-10.0); NEUTROPHILS % (AUTO) 45.6 % (45.0-75.0); PLATELET COUNT 243 K/UL (150-450); RED BLOOD COUNT 3.98 M/UL (4.20-5.40); RED CELL DISTRIBUTION WIDTH 13.4 % (11.6-14.8); WHITE BLOOD COUNT 9.6 K/UL (4.8-10.8)
[2017-02-26] MEDS: Aspirin EC 81mg tab ORAL SCH (08:16)
[2017-02-26 08:19] VITALS: BP 181/91
[2017-02-26] MEDS: Heparin 5000 units/ml inj SUBQ SCH ×2 (08:19→20:29)
--- NOTE | 2017-02-26 10:37 | Pulmonology Progress Note ---
Assessment/Plan Assessment/Plan ASSESSMENT chest pain r/o ACS CAD with multivessel disease HTN DM PLAN OF CARE tele serial troponin x3 negative no acute changes, r/o for acute [place] ECHO done earlier this month , with preserved EF cardio eval noted and appreciated on ASA and Plavix pain management with Morphine and Nitro prn lipid panel stable, continue statin BP management with BB and YUMIKO, optimize as needed BS management with SS of insulin, [id number] - at goal O2 HHN prn I had a long discussion with the patient re the need for CABG patient is scared but now agreeable to surgery, leon needs to talk with family patient has outpatient leaf conditioner that she follows patient needs reassurance and explanation from leaf conditioner patient can be dc since symptoms free if cleared by cardio and fup with outpatient leaf conditioner plan for CABG surgery ( now agreeable) at [facility] case discussed and evaluated by supervising physician Subjective Allergies: Coded Allergies: AMOXICILLIN (Verified Allergy, Severe, HIVES, 01/01/13) PENICILLINS (Verified Allergy, Severe, HIVES, 01/01/13) STRAWBERRY (Verified Allergy, Intermediate, Hives, 02/13/17) Subjective denies chest pain, SOB at this time aware that she needs CABG , afraid to do it stating " I cant keep coming like this, I need to do something" Objective Last 24 Hour Vital Signs Date Time Temp Pulse Resp B/P Pulse Ox O2 Delivery O2 Flow Rate FiO2 02/26/17 08:19 97.2 68 18 181/91 100 Room Air 02/26/17 08:18 79 181/77 02/26/17 08:17 89 181/77 02/26/17 08:17 181/77 02/26/17 08:00 66 02/26/17 07:45 66 16 Room Air 02/26/17 04:00 69 02/26/17 04:00 98.1 68 20 138/65 95 Room Air 02/26/17 00:00 98.2 72 18 150/69 92 Room Air 02/26/17 00:00 67 02/25/17 20:00 97.9 73 18 140/88 96 Room Air 02/25/17 20:00 67 02/25/17 19:36 76 16 Room Air 02/25/17 16:00 68 18 146/83 97 Room Air 02/25/17 16:00 68 02/25/17 12:00 98.8 74 18 154/84 100 Room Air 02/25/17 12:00 67 Intake and Output 02/25/17 02/26/17 19:00 07:00 # Voids 1 # Bowel Movements 1 Objective General Appearance: WD/WN, alert - A/A/O x 3 Lines, tubes and drains: peripheral HEENT: normocephalic, atraumatic, anicteric, mucous membranes moist Neck: non-tender, supple Respiratory/Chest: lungs clear, no respiratory distress, no accessory muscle use Cardiovascular/Chest: normal rate, regular rhythm, no JVD Abdomen: normal bowel sounds, non tender, soft Extremities: normal range of motion, non-tender, no calf tenderness, normal capillary refill Neurologic: alert, oriented x 3, responsive, other - RSW more pronounced in RLE than RUE Musculoskeletal: normal muscle bulk Laboratory Tests 02/26/17 05:25: White Blood Count 9.6, Red Blood Count 3.98L, Hemoglobin 10.8L, Hematocrit 33.5L , Mean Corpuscular Volume 84, Mean Corpuscular Hemoglobin 27.1, Mean Corpuscular Hemoglobin Concent 32.2, Red Cell Distribution Width 13.4, Platelet Count 243, Mean Platelet Volume 6.4L, Neutrophils (%) (Auto) 45.6, Lymphocytes ( %) (Auto) 36.4, Monocytes (%) (Auto) 5.7, Eosinophils (%) (Auto) 10.8H, Basophils (%) (Auto) 1.6, Sodium Level 139, Potassium Level 4.2, Chloride Level 103, Carbon Dioxide Level 25, Anion Gap 11, Blood Urea Nitrogen 18, Creatinine 0.9, Estimat Glomerular Filtration Rate , Glucose Level 90, Calcium Level 9.1, Troponin I < 0.30 Current Medications Medications (Trade) Dose Ordered Sig/Tasia Route PRN Reason Start Time Stop Time Status Last Admin Dose Admin Acetaminophen (Tylenol) 650 mg Q4H PRN ORAL Mild Pain (Pain Scale 1-3) 02/24/17 14:30 03/26/17 14:29 02/24/17 18:15 Al Hydroxide/Mg Hydroxide (Mylanta II) 30 ml Q6H PRN ORAL dyspepsia 02/24/17 14:30 03/26/17 14:29 Albuterol/ Ipratropium (DuoNeb 0.5-3(2.5)mg/3ml) 3 ml Q4H PRN HHN Shortness of Breath 02/24/17 14:30 03/01/17 14:29 Amlodipine Besylate (Norvasc) 2.5 mg DAILY ORAL 02/26/17 09:00 03/28/17 08:59 02/26/17 08:18 Aspirin (Ecotrin) 81 mg DAILY ORAL 02/25/17 09:00 03/27/17 08:59 02/26/17 08:16 Atorvastatin Calcium (Lipitor) 80 mg BEDTIME ORAL 02/24/17 21:00 03/26/17 20:59 02/25/17 21:05 Benazepril HCl (Lotensin) 40 mg DAILY ORAL 02/25/17 09:00 03/27/17 08:59 02/26/17 08:17 Clopidogrel Bisulfate (Plavix) 75 mg DAILY ORAL 02/25/17 09:00 03/27/17 08:59 02/26/17 08:18 Dextrose (Dextrose 50%) STAT PRN IV Hypoglycemia 02/24/17 14:30 03/26/17 14:29 Heparin Sodium (Porcine) (Heparin 5000 units/ml) 5,000 units EVERY 12 HOURS SUBQ 02/24/17 21:00 03/26/17 20:59 02/26/17 08:19 Insulin Aspart (NovoLOG) BEFORE MEALS AND HS SUBQ 02/24/17 16:30 03/26/17 16:29 02/25/17 21:07 Magnesium Hydroxide (Mom) 30 ml HSPRN PRN ORAL Constipation 02/24/17 14:30 03/26/17 14:29 Metoprolol Tartrate (Lopressor) 100 mg DAILY ORAL 02/25/17 09:00 03/27/17 08:59 02/26/17 08:17 Morphine Sulfate (Morphine Sulfate) 1 mg Q4H PRN IVP For Pain 02/24/17 14:30 03/03/17 14:29 02/25/17 09:34 Nitroglycerin (Ntg) 0.4 mg Every 5 Minutes PRN SL Prn Chest Pain 02/24/17 14:30 03/26/17 14:29 Ondansetron HCl (Zofran) 4 mg Q6H PRN IVP Nausea & Vomiting 02/24/17 14:30 03/26/17 14:29 Polyethylene Glycol (Miralax) 17 gm DAILYPRN PRN ORAL Constipation 02/24/17 14:30 03/26/17 14:29 Ranitidine HCl (Zantac) 150 mg TWICE A DAY ORAL 02/24/17 18:00 03/26/17 17:59 02/26/17 08:18 Zolpidem Tartrate (Ambien) 5 mg HSPRN PRN ORAL Insomnia 02/24/17 14:30 03/26/17 14:29 Alvaro ([facility])Asmita NP Feb 26, 2017 10:37
[2017-02-26 11:29] VITALS: BP 157/83
--- NOTE | 2017-02-26 15:20 | Internal Med Progress Note ---
Subjective Date of Service: Feb 26, 2017 Physician Name Richard Montero Attending Physician Candelario Guzman MD Current Medications Medications (Trade) Dose Ordered Sig/Tasia Route PRN Reason Start Time Stop Time Status Last Admin Dose Admin Acetaminophen (Tylenol) 650 mg Q4H PRN ORAL Mild Pain (Pain Scale 1-3) 02/24/17 14:30 03/26/17 14:29 02/24/17 18:15 Al Hydroxide/Mg Hydroxide (Mylanta II) 30 ml Q6H PRN ORAL dyspepsia 02/24/17 14:30 03/26/17 14:29 Albuterol/ Ipratropium (DuoNeb 0.5-3(2.5)mg/3ml) 3 ml Q4H PRN HHN Shortness of Breath 02/24/17 14:30 03/01/17 14:29 Amlodipine Besylate (Norvasc) 2.5 mg DAILY ORAL 02/26/17 09:00 03/28/17 08:59 02/26/17 08:18 Aspirin (Ecotrin) 81 mg DAILY ORAL 02/25/17 09:00 03/27/17 08:59 02/26/17 08:16 Atorvastatin Calcium (Lipitor) 80 mg BEDTIME ORAL 02/24/17 21:00 03/26/17 20:59 02/25/17 21:05 Benazepril HCl (Lotensin) 40 mg DAILY ORAL 02/25/17 09:00 03/27/17 08:59 02/26/17 08:17 Clopidogrel Bisulfate (Plavix) 75 mg DAILY ORAL 02/25/17 09:00 03/27/17 08:59 02/26/17 08:18 Dextrose (Dextrose 50%) STAT PRN IV Hypoglycemia 02/24/17 14:30 03/26/17 14:29 Heparin Sodium (Porcine) (Heparin 5000 units/ml) 5,000 units EVERY 12 HOURS SUBQ 02/24/17 21:00 03/26/17 20:59 02/26/17 08:19 Insulin Aspart (NovoLOG) BEFORE MEALS AND HS SUBQ 02/24/17 16:30 03/26/17 16:29 02/26/17 12:32 Magnesium Hydroxide (Mom) 30 ml HSPRN PRN ORAL Constipation 02/24/17 14:30 03/26/17 14:29 Metoprolol Tartrate (Lopressor) 100 mg DAILY ORAL 02/25/17 09:00 03/27/17 08:59 02/26/17 08:17 Morphine Sulfate (Morphine Sulfate) 1 mg Q4H PRN IVP For Pain 02/24/17 14:30 03/03/17 14:29 02/25/17 09:34 Nitroglycerin (Ntg) 0.4 mg Every 5 Minutes PRN SL Prn Chest Pain 02/24/17 14:30 03/26/17 14:29 Ondansetron HCl (Zofran) 4 mg Q6H PRN IVP Nausea & Vomiting 02/24/17 14:30 03/26/17 14:29 Polyethylene Glycol (Miralax) 17 gm DAILYPRN PRN ORAL Constipation 02/24/17 14:30 03/26/17 14:29 Ranitidine HCl (Zantac) 150 mg TWICE A DAY ORAL 02/24/17 18:00 03/26/17 17:59 02/26/17 08:18 Zolpidem Tartrate (Ambien) 5 mg HSPRN PRN ORAL Insomnia 02/24/17 14:30 03/26/17 14:29 Allergies: Coded Allergies: AMOXICILLIN (Verified Allergy, Severe, HIVES, 01/01/13) PENICILLINS (Verified Allergy, Severe, HIVES, 01/01/13) STRAWBERRY (Verified Allergy, Intermediate, Hives, 02/13/17) ROS Limited/Unobtainable: No Constitutional: Reports: no symptoms HEENT: Reports: no symptoms Cardiovascular: Reports: chest pain Respiratory: Reports: no symptoms Gastrointestinal/Abdominal: Reports: no symptoms Genitourinary: Reports: no symptoms Neurologic/Psychiatric: Reports: no symptoms Subjective 77 YO F admitted with chest pain. Cover for Int Martin-Dr Guzman.. Objective Last Vital Signs Date Time Temp Pulse Resp B/P Pulse Ox O2 Delivery O2 Flow Rate FiO2 02/26/17 11:29 98.1 65 18 157/83 100 Room Air Laboratory Tests Test 02/26/17 05:25 White Blood Count 9.6 K/UL (4.8-10.8) Red Blood Count 3.98 M/UL (4.20-5.40) L Hemoglobin 10.8 G/DL (12.0-16.0) L Hematocrit 33.5 % (37.0-47.0) L Mean Corpuscular Volume 84 FL (80-99) Mean Corpuscular Hemoglobin 27.1 PG (27.0-31.0) Mean Corpuscular Hemoglobin Concent 32.2 G/DL (32.0-36.0) Red Cell Distribution Width 13.4 % (11.6-14.8) Platelet Count 243 K/UL (150-450) Mean Platelet Volume 6.4 FL (6.5-10.1) L Neutrophils (%) (Auto) 45.6 % (45.0-75.0) Lymphocytes (%) (Auto) 36.4 % (20.0-45.0) Monocytes (%) (Auto) 5.7 % (1.0-10.0) Eosinophils (%) (Auto) 10.8 % (0.0-3.0) H Basophils (%) (Auto) 1.6 % (0.0-2.0) Sodium Level 139 mEQ/L (135-145) Potassium Level 4.2 mEQ/L (3.4-4.9) Chloride Level 103 mEQ/L (98-107) Carbon Dioxide Level 25 mEQ/L (20-30) Anion Gap 11 (5-15) Blood Urea Nitrogen 18 mg/dL (7-23) Creatinine 0.9 mg/dL (0.5-0.9) Estimat Glomerular Filtration Rate mL/min (>60) Glucose Level 90 mg/dL (74-106) Calcium Level 9.1 mg/dL (8.6-10.2) Troponin I < 0.30 ng/mL (<=0.30) Intake and Output 02/25/17 02/26/17 19:00 07:00 # Voids 1 # Bowel Movements 1 Objective General: alert, cooperative, no distress, appears stated age Head: normocephalic, without obvious abnormality, atraumatic Eyes: conjunctivae/corneas clear. PERRL, EOM's intact Throat: lips, mucosa, and tongue normal. MMM Neck: supple, symmetrical, trachea midline, and no JVD Lungs: clear to auscultation bilaterally Heart: regular rate and rhythm, S1, S2 normal, no murmur, click, rub or gallop Abdomen: soft, non-tender, non-distended, bowel sounds normal; no masses or organomegaly Extremities: extremities normal, atraumatic, no cyanosis or edema Pulses: 2+ and symmetric Skin: skin color, texture, turgor normal; no rashes or lesions Neurologic: grossly normal, no focal deficits Assessment/Plan Problem List: (1) Thoracic back pain (2) Coronary artery disease Assessment & Plan: 3 vessel disease. See cardiology note. Patient refused coronary bypass graft at [facility]. (3) Chest pain (4) Hypertension Assessment & Plan: Cont lopressor and lotensin (5) Diabetes Assessment & Plan: Cont novolog sliding scale. (6) Hypercholesteremia Assessment & Plan: Cont lipitor. (7) Thoracic radiculopathy Status: not improved RICHARD MONTERO Feb 26, 2017 15:20
[2017-02-26 15:32] VITALS: BP 154/73
--- NOTE | 2017-02-26 18:07 | Cardiology Progress Note ---
Assessment/Plan Problem List: (1) ACS (acute coronary syndrome) (2) Thoracic spondylosis (3) Hypercholesterolemia (4) Diabetes (5) Coronary artery disease (6) Hypertension Status: stable, progressing Status Narrative Mrs. Garcia has 3 V CAD, w/ recent cath at [facility]. CT surgery was recommended, but pt wanted to go home to consider it. she has now been readmitted w/ sx c/w angina ( back pain, chest pain), and has ruled out for CT BP is elevated Assessment/Plan Will increase norvasc and continue other meds start Imdur Pt is now agreeable to surgery - ? transfer vs dc home and return to [facility] out[facility] Subjective ROS Limited/Unobtainable: No Subjective Pt has not had further CP/back pain. No dyspnea Objective Last 24 Hour Vital Signs Date Time Temp Pulse Resp B/P Pulse Ox O2 Delivery O2 Flow Rate FiO2 02/26/17 16:00 68 02/26/17 15:32 97.7 67 18 154/73 100 Room Air 02/26/17 12:00 77 02/26/17 11:29 98.1 65 18 157/83 100 Room Air 02/26/17 08:19 97.2 68 18 181/91 100 Room Air 02/26/17 08:18 79 181/77 02/26/17 08:17 89 181/77 02/26/17 08:17 181/77 02/26/17 08:00 66 02/26/17 07:45 66 16 Room Air 02/26/17 04:00 69 02/26/17 04:00 98.1 68 20 138/65 95 Room Air 02/26/17 00:00 98.2 72 18 150/69 92 Room Air 02/26/17 00:00 67 02/25/17 20:00 97.9 73 18 140/88 96 Room Air 02/25/17 20:00 67 02/25/17 19:36 76 16 Room Air General Appearance: WD/WN, no apparent distress, alert EENT: PERRL/EOMI Neck: non-tender, supple, normal inspection, no JVD Rhythm: NSR Cardiovascular: normal rate, regular rhythm, no gallop/murmur Respiratory/Chest: lungs clear Abdomen: normal bowel sounds, non tender, soft Extremities: no swelling Intake and Output 02/25/17 02/26/17 19:00 07:00 # Voids 1 # Bowel Movements 1 Laboratory Tests Test 02/26/17 05:25 White Blood Count 9.6 K/UL (4.8-10.8) Red Blood Count 3.98 M/UL (4.20-5.40) L Hemoglobin 10.8 G/DL (12.0-16.0) L Hematocrit 33.5 % (37.0-47.0) L Mean Corpuscular Volume 84 FL (80-99) Mean Corpuscular Hemoglobin 27.1 PG (27.0-31.0) Mean Corpuscular Hemoglobin Concent 32.2 G/DL (32.0-36.0) Red Cell Distribution Width 13.4 % (11.6-14.8) Platelet Count 243 K/UL (150-450) Mean Platelet Volume 6.4 FL (6.5-10.1) L Neutrophils (%) (Auto) 45.6 % (45.0-75.0) Lymphocytes (%) (Auto) 36.4 % (20.0-45.0) Monocytes (%) (Auto) 5.7 % (1.0-10.0) Eosinophils (%) (Auto) 10.8 % (0.0-3.0) H Basophils (%) (Auto) 1.6 % (0.0-2.0) Sodium Level 139 mEQ/L (135-145) Potassium Level 4.2 mEQ/L (3.4-4.9) Chloride Level 103 mEQ/L (98-107) Carbon Dioxide Level 25 mEQ/L (20-30) Anion Gap 11 (5-15) Blood Urea Nitrogen 18 mg/dL (7-23) Creatinine 0.9 mg/dL (0.5-0.9) Estimat Glomerular Filtration Rate mL/min (>60) Glucose Level 90 mg/dL (74-106) Calcium Level 9.1 mg/dL (8.6-10.2) Troponin I < 0.30 ng/mL (<=0.30) TANGELA ANGEL Feb 26, 2017 18:07
[2017-02-26 20:00] VITALS: BP 121/73
[2017-02-26] MEDS: Atorvastatin 80mg tab ORAL SCH (20:27)
[2017-02-26] MEDS ORDERED: Nitroglycerin Subl 0.4mg tab (Bottle Of 25) SL PRN (23:00)
[2017-02-27] VITALS: BP 130/70
[2017-02-27] MEDS ORDERED: Mylanta II UD 30ml ORAL PRN (02:30)
[2017-02-27] MEDS ORDERED: DuoNeb 0.5-3(2.5)mg/3ml neb HHN PRN (02:30)
[2017-02-27] MEDS ORDERED: Morphine Sulfate 2mg/ml Inj IVP PRN (02:30)
[2017-02-27 04:26] VITALS: BP 132/65
[2017-02-27] MEDS: NovoLOG Insulin Flexpen SUBQ SCH ×4 (06:30→20:38)
[2017-02-27 07:59] LABS: BASOPHILS % (AUTO) 1.6 % (0.0-2.0); LYMPHOCYTES % (AUTO) 37.5 % (20.0-45.0); MEAN CORPUSCULAR HEMOGLOBIN 26.6 PG (27.0-31.0); MEAN CORPUSCULAR HGB CONC 31.9 G/DL (32.0-36.0); MEAN CORPUSCULAR VOLUME 84 FL (80-99); MEAN PLATELET VOLUME 6.3 FL (6.5-10.1); MONOCYTES % (AUTO) 5.9 % (1.0-10.0); NEUTROPHILS % (AUTO) 44.9 % (45.0-75.0); PLATELET COUNT 271 K/UL (150-450); RED BLOOD COUNT 4.39 M/UL (4.20-5.40); RED CELL DISTRIBUTION WIDTH 13.3 % (11.6-14.8); WHITE BLOOD COUNT 9.5 K/UL (4.8-10.8)
[2017-02-27 08:15] VITALS: BP 143/67
[2017-02-27 08:17] LABS: TROPONIN I < 0.30 ng/mL (<=0.30)
[2017-02-27 08:23] LABS: ANION GAP 13 (5-15); CALCIUM 9.5 mg/dL (8.6-10.2); CARBON DIOXIDE 24 mEQ/L (20-30); CHLORIDE 101 mEQ/L (98-107); HEMOLYSIS 0; POTASSIUM 4.3 mEQ/L (3.4-4.9); SODIUM 138 mEQ/L (135-145)
[2017-02-27] MEDS: Imdur 30mg tab ORAL SCH (08:39)
[2017-02-27] MEDS: Aspirin EC 81mg tab ORAL SCH (08:39)
[2017-02-27] MEDS: Heparin 5000 units/ml inj SUBQ SCH ×2 (08:40→20:37)
[2017-02-27] MEDS ORDERED: Imdur 30mg tab ORAL SCH (09:00)
--- NOTE | 2017-02-27 10:41 | Internal Med Progress Note ---
Subjective Date of Service: Feb 27, 2017 Physician Name Richard Montero Attending Physician Candelario Guzman MD Current Medications Medications (Trade) Dose Ordered Sig/Tasia Route PRN Reason Start Time Stop Time Status Last Admin Dose Admin Acetaminophen (Tylenol) 650 mg Q4H PRN ORAL Mild Pain (Pain Scale 1-3) 02/27/17 02:30 03/29/17 02:29 Al Hydroxide/Mg Hydroxide (Mylanta II) 30 ml Q6H PRN ORAL dyspepsia 02/27/17 02:30 03/29/17 02:29 Albuterol/ Ipratropium (DuoNeb 0.5-3(2.5)mg/3ml) 3 ml Q4H PRN HHN Shortness of Breath 02/27/17 02:30 03/04/17 02:29 Amlodipine Besylate (Norvasc) 5 mg DAILY ORAL 02/27/17 09:00 03/29/17 08:59 02/27/17 08:39 Aspirin (Ecotrin) 81 mg DAILY ORAL 02/27/17 09:00 03/29/17 08:59 02/27/17 08:39 Atorvastatin Calcium (Lipitor) 80 mg BEDTIME ORAL 02/27/17 21:00 03/29/17 20:59 Benazepril HCl (Lotensin) 40 mg DAILY ORAL 02/27/17 09:00 03/29/17 08:59 02/27/17 08:38 Clopidogrel Bisulfate (Plavix) 75 mg DAILY ORAL 02/27/17 09:00 03/29/17 08:59 02/27/17 08:39 Dextrose (Dextrose 50%) STAT PRN IV Hypoglycemia 02/27/17 14:30 03/29/17 14:29 Heparin Sodium (Porcine) (Heparin 5000 units/ml) 5,000 units EVERY 12 HOURS SUBQ 02/27/17 09:00 03/29/17 08:59 02/27/17 08:40 Insulin Aspart (NovoLOG) BEFORE MEALS AND HS SUBQ 02/27/17 06:30 03/29/17 06:29 Isosorbide Mononitrate (Imdur) 30 mg DAILY ORAL 02/27/17 09:00 03/29/17 08:59 02/27/17 08:39 Magnesium Hydroxide (Mom) 30 ml HSPRN PRN ORAL Constipation 02/27/17 14:30 03/29/17 14:29 Metoprolol Tartrate (Lopressor) 100 mg DAILY ORAL 02/27/17 09:00 03/29/17 08:59 02/27/17 08:39 Morphine Sulfate (Morphine Sulfate) 1 mg Q4H PRN IVP For Pain 02/27/17 02:30 03/06/17 02:29 Nitroglycerin (Ntg) 0.4 mg Every 5 Minutes PRN SL Prn Chest Pain 02/26/17 23:00 03/28/17 22:59 Ondansetron HCl (Zofran) 4 mg Q6H PRN IVP Nausea & Vomiting 02/27/17 02:30 03/29/17 02:29 Polyethylene Glycol (Miralax) 17 gm DAILYPRN PRN ORAL Constipation 02/27/17 14:30 03/29/17 14:29 Ranitidine HCl (Zantac) 150 mg TWICE A DAY ORAL 02/27/17 09:00 03/29/17 08:59 02/27/17 08:39 Zolpidem Tartrate (Ambien) 5 mg HSPRN PRN ORAL Insomnia 02/27/17 14:30 03/29/17 14:29 Allergies: Coded Allergies: AMOXICILLIN (Verified Allergy, Severe, HIVES, 01/01/13) PENICILLINS (Verified Allergy, Severe, HIVES, 01/01/13) STRAWBERRY (Verified Allergy, Intermediate, Hives, 02/13/17) ROS Limited/Unobtainable: No Constitutional: Reports: no symptoms HEENT: Reports: no symptoms Cardiovascular: Reports: chest pain Respiratory: Reports: no symptoms Gastrointestinal/Abdominal: Reports: no symptoms Genitourinary: Reports: no symptoms Neurologic/Psychiatric: Reports: no symptoms Subjective 77 YO F admitted with chest pain. Cover for Int Martin-Dr Guzman.. Objective Last Vital Signs Date Time Temp Pulse Resp B/P Pulse Ox O2 Delivery O2 Flow Rate FiO2 02/27/17 08:39 67 143/67 02/27/17 08:16 16 Room Air 21 02/27/17 08:15 97.7 99 Laboratory Tests Test 02/27/17 07:30 White Blood Count 9.5 K/UL (4.8-10.8) Red Blood Count 4.39 M/UL (4.20-5.40) Hemoglobin 11.7 G/DL (12.0-16.0) L Hematocrit 36.6 % (37.0-47.0) L Mean Corpuscular Volume 84 FL (80-99) Mean Corpuscular Hemoglobin 26.6 PG (27.0-31.0) L Mean Corpuscular Hemoglobin Concent 31.9 G/DL (32.0-36.0) L Red Cell Distribution Width 13.3 % (11.6-14.8) Platelet Count 271 K/UL (150-450) Mean Platelet Volume 6.3 FL (6.5-10.1) L Neutrophils (%) (Auto) 44.9 % (45.0-75.0) L Lymphocytes (%) (Auto) 37.5 % (20.0-45.0) Monocytes (%) (Auto) 5.9 % (1.0-10.0) Eosinophils (%) (Auto) 10.0 % (0.0-3.0) H Basophils (%) (Auto) 1.6 % (0.0-2.0) Sodium Level 138 mEQ/L (135-145) Potassium Level 4.3 mEQ/L (3.4-4.9) Chloride Level 101 mEQ/L (98-107) Carbon Dioxide Level 24 mEQ/L (20-30) Anion Gap 13 (5-15) Blood Urea Nitrogen 19 mg/dL (7-23) Creatinine 1.0 mg/dL (0.5-0.9) H Estimat Glomerular Filtration Rate mL/min (>60) Glucose Level 91 mg/dL (74-106) Calcium Level 9.5 mg/dL (8.6-10.2) Troponin I < 0.30 ng/mL (<=0.30) Microbiology Date/Time Source Procedure Growth Status 02/24/17 16:00 Nasal Nares MRSA Culture - Final NO METHICILLIN RESISTANT STAPH AUREUS... Complete 02/24/17 16:00 Rectum VRE Culture - Final Enterococcus Faecalis - Vre Complete Intake and Output 02/26/17 02/27/17 19:00 07:00 Intake Total 610 ml 240 ml Balance 610 ml 240 ml Intake Oral 610 ml 240 ml # Voids 3 2 # Bowel Movements 1 Objective General: alert, cooperative, no distress, appears stated age Head: normocephalic, without obvious abnormality, atraumatic Eyes: conjunctivae/corneas clear. PERRL, EOM's intact Throat: lips, mucosa, and tongue normal. MMM Neck: supple, symmetrical, trachea midline, and no JVD Lungs: clear to auscultation bilaterally Heart: regular rate and rhythm, S1, S2 normal, no murmur, click, rub or gallop Abdomen: soft, non-tender, non-distended, bowel sounds normal; no masses or organomegaly Extremities: extremities normal, atraumatic, no cyanosis or edema Pulses: 2+ and symmetric Skin: skin color, texture, turgor normal; no rashes or lesions Neurologic: grossly normal, no focal deficits Assessment/Plan Problem List: (1) Thoracic back pain (2) Coronary artery disease Assessment & Plan: 3 vessel disease. See cardiology note. Patient refused coronary bypass graft at [facility]. (3) Chest pain (4) Hypertension Assessment & Plan: Cont lopressor and lotensin (5) Diabetes Assessment & Plan: Cont novolog sliding scale. (6) Hypercholesteremia Assessment & Plan: Cont lipitor. (7) Thoracic radiculopathy Assessment/Plan Discharge planning RICHARD MONTERO Feb 27, 2017 10:41
[2017-02-27 11:43] VITALS: BP 139/77
[2017-02-27] MEDS ORDERED: Zolpidem 5mg tab ORAL PRN (14:30)
[2017-02-27] MEDS ORDERED: Milk of Magnesia 30ml Ud ORAL PRN (14:30)
[2017-02-27] MEDS ORDERED: Miralax 17gm pkt ORAL PRN (14:30)
[2017-02-27 16:00] VITALS: BP 141/74
--- NOTE | 2017-02-27 19:12 | Pulmonology Progress Note ---
Assessment/Plan Problems: (1) ACS (acute coronary syndrome) (2) Thoracic spondylosis (3) Chest pain (4) Bronchitis (5) Diabetes Assessment/Plan improving continue current meds all notes, including cardio notes reviewed transfer to [facility] when bed becomes available Subjective ROS Limited/Unobtainable: No Interval Events: no new complains Allergies: Coded Allergies: AMOXICILLIN (Verified Allergy, Severe, HIVES, 01/01/13) PENICILLINS (Verified Allergy, Severe, HIVES, 01/01/13) STRAWBERRY (Verified Allergy, Intermediate, Hives, 02/13/17) Objective Last 24 Hour Vital Signs Date Time Temp Pulse Resp B/P Pulse Ox O2 Delivery O2 Flow Rate FiO2 02/27/17 16:00 97.3 66 18 141/74 97 Room Air 02/27/17 11:43 99.5 75 18 139/77 94 Room Air 02/27/17 08:39 67 143/67 02/27/17 08:39 143/67 02/27/17 08:39 67 143/67 02/27/17 08:38 143/67 02/27/17 08:16 71 16 Room Air 21 02/27/17 08:15 97.7 67 19 143/67 99 Room Air 02/27/17 04:26 98.1 85 19 132/65 98 Room Air 02/27/17 00:00 97.9 80 19 130/70 96 Room Air 02/26/17 20:00 61 02/26/17 20:00 98.4 63 20 121/73 98 Room Air 02/26/17 19:30 64 16 Room Air 21 Intake and Output 02/26/17 02/27/17 19:00 07:00 Intake Total 610 ml 240 ml Balance 610 ml 240 ml Intake Oral 610 ml 240 ml # Voids 3 2 # Bowel Movements 1 Objective General Appearance: WD/WN HEENT: normocephalic, atraumatic Respiratory/Chest: chest wall non-tender, lungs clear Cardiovascular: normal peripheral pulses, normal rate Abdomen: normal bowel sounds, soft, non tender, no organomegaly Extremities: no cyanosis, no clubbing Skin: no rash Laboratory Tests 02/27/17 07:30: White Blood Count 9.5, Red Blood Count 4.39, Hemoglobin 11.7L, Hematocrit 36.6L , Mean Corpuscular Volume 84, Mean Corpuscular Hemoglobin 26.6L, Mean Corpuscular Hemoglobin Concent 31.9L, Red Cell Distribution Width 13.3, Platelet Count 271, Mean Platelet Volume 6.3L, Neutrophils (%) (Auto) 44.9L, Lymphocytes (%) (Auto) 37.5, Monocytes (%) (Auto) 5.9, Eosinophils (%) (Auto) 10.0H, Basophils (%) (Auto) 1.6, Sodium Level 138, Potassium Level 4.3, Chloride Level 101, Carbon Dioxide Level 24, Anion Gap 13, Blood Urea Nitrogen 19, Creatinine 1.0H, Estimat Glomerular Filtration Rate , Glucose Level 91, Calcium Level 9.5, Troponin I < 0.30 Current Medications Medications (Trade) Dose Ordered Sig/Tasia Route PRN Reason Start Time Stop Time Status Last Admin Dose Admin Acetaminophen (Tylenol) 650 mg Q4H PRN ORAL Mild Pain (Pain Scale 1-3) 02/27/17 02:30 03/29/17 02:29 Al Hydroxide/Mg Hydroxide (Mylanta II) 30 ml Q6H PRN ORAL dyspepsia 02/27/17 02:30 03/29/17 02:29 Albuterol/ Ipratropium (DuoNeb 0.5-3(2.5)mg/3ml) 3 ml Q4H PRN HHN Shortness of Breath 02/27/17 02:30 03/04/17 02:29 Amlodipine Besylate (Norvasc) 5 mg DAILY ORAL 02/27/17 09:00 03/29/17 08:59 02/27/17 08:39 Aspirin (Ecotrin) 81 mg DAILY ORAL 02/27/17 09:00 03/29/17 08:59 02/27/17 08:39 Atorvastatin Calcium (Lipitor) 80 mg BEDTIME ORAL 02/27/17 21:00 03/29/17 20:59 Benazepril HCl (Lotensin) 40 mg DAILY ORAL 02/27/17 09:00 03/29/17 08:59 02/27/17 08:38 Clopidogrel Bisulfate (Plavix) 75 mg DAILY ORAL 02/27/17 09:00 03/29/17 08:59 02/27/17 08:39 Dextrose (Dextrose 50%) STAT PRN IV Hypoglycemia 02/27/17 14:30 03/29/17 14:29 Heparin Sodium (Porcine) (Heparin 5000 units/ml) 5,000 units EVERY 12 HOURS SUBQ 02/27/17 09:00 03/29/17 08:59 02/27/17 08:40 Insulin Aspart (NovoLOG) BEFORE MEALS AND HS SUBQ 02/27/17 06:30 03/29/17 06:29 02/27/17 16:51 Isosorbide Mononitrate (Imdur) 30 mg DAILY ORAL 02/27/17 09:00 03/29/17 08:59 02/27/17 08:39 Magnesium Hydroxide (Mom) 30 ml HSPRN PRN ORAL Constipation 02/27/17 14:30 03/29/17 14:29 Metoprolol Tartrate (Lopressor) 100 mg DAILY ORAL 02/27/17 09:00 03/29/17 08:59 02/27/17 08:39 Morphine Sulfate (Morphine Sulfate) 1 mg Q4H PRN IVP For Pain 02/27/17 02:30 03/06/17 02:29 Nitroglycerin (Ntg) 0.4 mg Every 5 Minutes PRN SL Prn Chest Pain 02/26/17 23:00 03/28/17 22:59 Ondansetron HCl (Zofran) 4 mg Q6H PRN IVP Nausea & Vomiting 02/27/17 02:30 03/29/17 02:29 Polyethylene Glycol (Miralax) 17 gm DAILYPRN PRN ORAL Constipation 02/27/17 14:30 03/29/17 14:29 Ranitidine HCl (Zantac) 150 mg TWICE A DAY ORAL 02/27/17 09:00 03/29/17 08:59 02/27/17 17:51 Zolpidem Tartrate (Ambien) 5 mg HSPRN PRN ORAL Insomnia 02/27/17 14:30 03/29/17 14:29 RONY CRUZ Feb 27, 2017 19:12
[2017-02-27 20:00] VITALS: BP 163/96
[2017-02-27] MEDS ORDERED: Atorvastatin 80mg tab ORAL SCH (21:00)
--- NOTE | 2017-02-27 22:40 | Diagnostic Imaging Report ---
APPROVED REPORT CPT Code: 20553 Present Symptoms Lower Extremity Pain: Bilateral Shortness of breath BILATERAL: Imaging reveals a patent deep venous system bilaterally. There is no evidence of thrombus within the femoral, popliteal or tibial segments. The greater saphenous veins are also within normal limits. Doppler indicates normal spontaneous flow within these segments.
[2017-02-28] VITALS: BP 138/76
[2017-02-28 04:27] VITALS: BP 137/69
[2017-02-28] MEDS: NovoLOG Insulin Flexpen SUBQ SCH ×2 (06:30→11:32)
[2017-02-28 07:02] LABS: BASOPHILS % (AUTO) 1.3 % (0.0-2.0); EOSINOPHILS % (AUTO) 9.8 % (0.0-3.0); LYMPHOCYTES % (AUTO) 39.8 % (20.0-45.0); MEAN CORPUSCULAR HEMOGLOBIN 26.9 PG (27.0-31.0); MEAN CORPUSCULAR HGB CONC 32.6 G/DL (32.0-36.0); MEAN CORPUSCULAR VOLUME 83 FL (80-99); MEAN PLATELET VOLUME 6.6 FL (6.5-10.1); MONOCYTES % (AUTO) 5.9 % (1.0-10.0); NEUTROPHILS % (AUTO) 43.1 % (45.0-75.0); PLATELET COUNT 271 K/UL (150-450); RED BLOOD COUNT 4.32 M/UL (4.20-5.40); RED CELL DISTRIBUTION WIDTH 13.3 % (11.6-14.8); WHITE BLOOD COUNT 11.1 K/UL (4.8-10.8)
[2017-02-28 07:07] LABS: ANION GAP 15 (5-15); CALCIUM 9.3 mg/dL (8.6-10.2); CARBON DIOXIDE 25 mEQ/L (20-30); CHLORIDE 99 mEQ/L (98-107); CREATININE 1.1 mg/dL (0.5-0.9); HEMOLYSIS 0; POTASSIUM 4.2 mEQ/L (3.4-4.9); SODIUM 139 mEQ/L (135-145)
[2017-02-28] MEDS: Aspirin EC 81mg tab ORAL SCH (08:10)
[2017-02-28] MEDS: Imdur 30mg tab ORAL SCH (08:10)
[2017-02-28] MEDS: Heparin 5000 units/ml inj SUBQ SCH (08:17)
[2017-02-28 08:29] VITALS: BP 96/52
[2017-02-28 12:02] VITALS: BP 102/57
--- NOTE | 2017-02-28 19:18 | Pulmonology Progress Note ---
Assessment/Plan Problems: (1) ACS (acute coronary syndrome) (2) Thoracic spondylosis (3) Chest pain (4) Bronchitis (5) Diabetes Assessment/Plan improving continue current meds all notes, including cardio notes reviewed transfer to [facility] when bed becomes available dvt prophylaxis monitor BP Subjective ROS Limited/Unobtainable: No Interval Events: no new complains Allergies: Coded Allergies: AMOXICILLIN (Verified Allergy, Severe, HIVES, 01/01/13) PENICILLINS (Verified Allergy, Severe, HIVES, 01/01/13) STRAWBERRY (Verified Allergy, Intermediate, Hives, 02/13/17) Objective Last 24 Hour Vital Signs Date Time Temp Pulse Resp B/P Pulse Ox O2 Delivery O2 Flow Rate FiO2 02/28/17 12:02 97.9 69 19 102/57 95 Room Air 02/28/17 08:29 97.2 68 19 96/52 96 Room Air 02/28/17 08:11 74 137/69 02/28/17 08:11 137/69 02/28/17 08:11 74 137/69 02/28/17 08:10 137/69 02/28/17 07:58 64 16 Room Air 02/28/17 04:27 97.2 74 20 137/69 100 Room Air 02/28/17 03:21 97.7 02/28/17 00:00 97.7 78 20 138/76 93 Room Air 02/27/17 20:06 76 16 Room Air 02/27/17 20:00 97.9 67 20 163/96 100 Room Air Intake and Output 02/27/17 02/28/17 19:00 07:00 Intake Total 1080 ml Balance 1080 ml Intake Oral 1080 ml # Voids 2 3 # Bowel Movements 1 Objective General Appearance: WD/WN HEENT: normocephalic, atraumatic Respiratory/Chest: chest wall non-tender, lungs clear Cardiovascular: normal peripheral pulses, normal rate Abdomen: normal bowel sounds, soft, non tender, no organomegaly Extremities: no cyanosis, no clubbing Skin: no rash Laboratory Tests 02/28/17 05:10: White Blood Count 11.1H, Red Blood Count 4.32, Hemoglobin 11.6L, Hematocrit 35.7L, Mean Corpuscular Volume 83, Mean Corpuscular Hemoglobin 26.9L, Mean Corpuscular Hemoglobin Concent 32.6, Red Cell Distribution Width 13.3, Platelet Count 271, Mean Platelet Volume 6.6, Neutrophils (%) (Auto) 43.1L, Lymphocytes ( %) (Auto) 39.8, Monocytes (%) (Auto) 5.9, Eosinophils (%) (Auto) 9.8H, Basophils (%) (Auto) 1.3, Sodium Level 139, Potassium Level 4.2, Chloride Level 99, Carbon Dioxide Level 25, Anion Gap 15, Blood Urea Nitrogen 28H, Creatinine 1.1H, Estimat Glomerular Filtration Rate , Glucose Level 91, Calcium Level 9.3 RONY CRUZ Feb 28, 2017 19:18
--- NOTE | 2017-03-01 15:34 | Cardiology Report ---
APPROVED REPORT EKG Measurement Heart [id number] Normal sinus rhythm with sinus arrhythmia Nonspecific ST and T wave abnormality Abnormal ECG
--- NOTE | 2017-03-02 11:00 | Discharge Summary ---
Discharge Summary Hospital Course Date of Admission Feb 24, 2017 at 12:12 Date of Discharge Feb 28, 2017 at 12:54 Admitting Diagnosis HPI Paula Garcia is a 77 year old female who was admitted on Feb 24, 2017 at 12: 12 for Chest Pain Hospital Course [id number] Discharge Discharge Disposition Patient was discharged to Home with Home Health(06) Discharge Diagnoses: Zulma Weaver NP Mar 02, 2017 11:00
--- NOTE | 2017-03-02 17:30 | Discharge Summary 2 SIG ---
DATE OF ADMISSION: 02/24/2017 DATE OF DISCHARGE: 02/28/2017 CONSULTANTS: 1. Ilia Stapleton M.D. 2. Dorothy Padgett M.D. BRIEF HOSPITAL COURSE: The patient is a 77-year-old, female, who presented with chief complaint of upper back and chest pain. She was admitted to [facility] from 02/13/2017 to 02/19/2017 and was transferred to [facility] for cardiac catheterization. She was discharged and began to experience back pain that radiated toward her chest. She initially presented to [facility] emergency room and was transferred to [facility] for insurance purposes. She was admitted to telemetry for evaluation of chest pain and was seen by Dr. Padgett. Coronary angiography done at [facility] showed three-vessel coronary disease with an 80% proximal left anterior and descending 90% circumflex and 80% in-stent restenosis of a previously stented right coronary artery. Coronary artery bypass surgery was recommended but was declined by the patient. She was then discharged on medical therapy. She was given antiplatelet agents and was started on beta-blockers and statins. Blood pressure control not optimal. Norvasc was added. She was on maximal doses of metoprolol and benazepril. She previously declined surgery . The patient initially wanted to go back home and think about the surgical recommendation. She then later on changed her mind and was eventually transferred to [facility]. FINAL DIAGNOSES: 1. Acute coronary syndrome. 2. Thoracic spondylosis. 3. Coronary artery disease with three-vessel coronary artery disease from a recent catheterization. 4. Hypertension. 5. Bronchitis. 6. Diabetes mellitus. 7. Hypercholesterolemia. Junior Quiles M.D. I have been assigned to dictate discharge summary on this account and I was not involved in the patient's management. Zulma Weaver N.P. DR: Alicia JOB#: [id number] CC:
== END 2017-02-28 12:54 | disposition short-term general hospital (02) | DRG 311 ==
LOC: 2E 12:12 → 3E 02-26 22:44 → 4E 02-27 10:45
DX: I24.9 Acute ischemic heart disease, unspecified (principal); E11.65 Type 2 diabetes mellitus with hyperglycemia; I69.351 Hemiplegia and hemiparesis following cerebral infarction affecting right dominant side; I25.119 Atherosclerotic heart disease of native coronary artery with unspecified angina pectoris; E78.00 Pure hypercholesterolemia, unspecified; I10 Essential (primary) hypertension; M54.14 Radiculopathy, thoracic region; Z79.02 Long term (current) use of antithrombotics/antiplatelets; F17.200 Nicotine dependence, unspecified, uncomplicated; Z88.1 Allergy status to other antibiotic agents; Z88.0 Allergy status to penicillin; J44.9 Chronic obstructive pulmonary disease, unspecified; M47.894 Other spondylosis, thoracic region; J40 Bronchitis, not specified as acute or chronic; I25.10 Atherosclerotic heart disease of native coronary artery without angina pectoris; Z95.5 Presence of coronary angioplasty implant and graft
CPT/HCPCS: 36415; 71010; 80048; 80061; 82962; 83036; 84443; 84484; 85025; 87081; 93005; 93970; 94664; J1815